=== PATIENT | male | born 1965 | race Caucasian/White ===

== ENCOUNTER 2019-03-05 11:53 | Inpatient (IN) | payer OTHER ==
[~2019-03-05 11:53] MED LIST: Dexamethasone 20 MG/5 ML VIAL ONE; Lidocaine 1% PF 5 ML VIAL ONE; Ondansetron PF 4 MG/2 ML Vial ONE; PHENYLEPHRINE-NS 100 MCG/ML 10 ML SYRINGE ONE; PROPOFOL 200 MG/20 ML VIAL ONE; Succinylcholine Chloride 20 MG/ML 10 ml SYRINGE FS ONE
[2019-03-05 12:32] LABS: #Basophils 0.1 thou/uL (0.0-0.2); #Eosinphils 0.1 thou/uL (0.0-0.7); #Lymphocytes 1.3 thou/uL (1.20-3.40); #Monocytes 0.8 thou/uL (0.11-0.59); #Neutrophils 7.7 thou/uL (1.40-6.50); %Basophils 0.9 % (0.0-1.0); %Eosinophils 0.9 % (0.0-10.0); %Lymphocytes 12.7 % (21.0-51.0); %Neutrophils 77.5 % (42.0-75.0); Hemoglobin 8.5 g/dL (14.0-18.0); Mean Corpuscular HGB CONC 30.4 g/dL (32.0-36.0); Mean Corpuscular Hemoglobin 25.3 pg (27.0-31.0); Mean Corpuscular Volume 83.2 fL (78.0-98.0); Platelet Count 261 thou/uL (130-400); RBC Distribution Width 18.9 % (11.5-14.5); Red Blood Cell (RBC) Count 3.37 mill/uL (4.70-6.10)
[2019-03-05 12:42] LABS: INR-International Normal Ratio 1.1; Prothrombin Time 13.9 SEC (12.0-14.7)
[2019-03-05 12:52] LABS: ALT (SGPT) 12 U/L (8-55); AST (SGOT) 10 U/L (5-34); Albumin 3.5 g/dL (3.5-5.0); Alkaline Phosphatase 57 U/L (40-150); Anion Gap 12 mmol/L (10-20); BUN (Urea Nitrogen) 24 mg/dL (8.4-25.7); Bilirubin, Total 0.2 mg/dL (0.2-1.2); Calc. Creatinine Clearance 0 mL/min (70-130); Calcium 8.9 mg/dL (7.8-10.44); Carbon Dioxide 19 mmol/L (22-29); Chloride 111 mmol/L (98-107); Estimated GFR-MDRD 60; Globulin 2.2 g/dL (2.4-3.5); Glucose 114 mg/dL (70-105); Potassium 3.7 mmol/L (3.5-5.1); Protein, Total 5.7 g/dL (6.0-8.3); Sodium 138 mmol/L (136-145)
--- NOTE | 2019-03-05 15:00 | RAD ---
PORTABLE CHEST: 03/05/2019 PROVIDED CLINICAL HISTORY: Syncope. COMPARISON: 12/05/2003 FINDINGS: The cardiac and mediastinal silhouette is within normal limits. The lungs are hypoinflated with prob able bibasilar subsegmental atelectatic change. No pleural fluid or pneumothorax apparent. IMPRESSION: Hypoinflated examination without definite evidence for an acute cardiopulmonary process. POS: MAYANK
[2019-03-05] MEDS ORDERED: Pantoprazole 40 MG VIAL ONE (15:21)
--- NOTE | 2019-03-05 15:46 | HP ---
PRIMARY CARE PHYSICIAN: [facility] Call admission. REASON FOR ADMISSION: Symptomatic anemia, orthostatic hypotension, GI bleed. HISTORY OF PRESENT ILLNESS: A 54-year-old male who has no significant medical problem, who was brought to emergency room for syncopal episode. The patient reports that for last couple of days, he was feeling dizzy and weak. He was intermittently experiencing dizziness, especially whenever he was trying to stand up. He was also feeling warm and subsequently dizziness. At home, he had episode of syncopal episode. The patient reports that when he had bowel movement, he noticed bright red blood in stool. The patient also gives history that he has a hemorrhoid, but he never noticed any blood with wiping. The patient denies any epigastric pain. He denies any nausea, hematemesis, or melena. He denies any abdominal pain. The patient was taking NSAID, naproxen and ibuprofen for his tooth problem. He never had this type of problem in past. In the emergency room, when he arrived, at that time, his blood pressure was 104/77. He was given 2 L of IV fluid. When he tried to stand up by himself, at that time the patient pulse increased to 140s and his blood pressure dropped. The patient was feeling fatigued and tired. He denies any chest pain palpitation. He denies any weight loss. He denies any headache or focal motor symptoms. REVIEW OF SYSTEMS: CONSTITUTIONAL: Negative for weight loss or gain, ability to conduct usual activities. SKIN: Negative for rash, itching. EYES: Negative for double vision, pain. ENT/MOUTH: Negative for nose bleeding, neck stiffness, pain, tenderness. CARDIOVASCULAR: Negative for palpitations, dyspnea on exertion, orthopnea. RESPIRATORY: Negative for shortness of breath, wheezing, cough, hemoptysis, fever or night sweats. GASTROINTESTINAL: Negative for poor appetite, abdominal pain, heartburn, nausea, vomiting, constipation, or diarrhea. GENITOURINARY: Negative for urgency, frequency, dysuria, nocturia. MUSCULOSKELETAL: Negative for pain, swelling. NEUROLOGIC/PSYCHIATRIC: Negative for anxiety, depression. ALLERGY/IMMUNOLOGIC: Negative for skin rash, bleeding tendency. Please see my HPI for pertinent positives and negatives. All other review of systems reviewed and negative except as mentioned in HPI. PAST MEDICAL HISTORY: Reviewed and negative. PAST SURGICAL HISTORY: Dental surgery and skin cancer removed from nose as well as on the face. PAST PSYCHIATRIC HISTORY: Anxiety and depression, on Zoloft. SOCIAL HISTORY: The patient currently dips nicotine-free product. He drinks alcohol once a month. He denies any other illicit drug abuse. FAMILY HISTORY: No strong family history of premature coronary artery disease, stroke, or cancer. ALLERGIES: NO KNOWN DRUG ALLERGIES. CURRENT HOME MEDICATIONS: Zoloft 50 mg daily. EMERGENCY ROOM COURSE: So far, the patient has received IV fluid 2 L. PHYSICAL EXAMINATION: VITAL SIGNS: Currently, blood pressure 104/77, pulse 84, respiratory rate 20, temperature 98.3, saturation 100% on room air, weight 99 kg. GENERAL: The patient is currently alert, awake, no obvious acute distress. HEENT: Head; normocephalic and atraumatic. Eyes; pupils round, reactive to light. Extraocular muscle intact. ENT; oropharynx within normal limits. Pale mucous membrane. No oral lesion. No pharyngeal erythema. No exudate. NECK: Supple. No JVD. No thyromegaly. No carotid bruit. No jugular venous distention. LUNGS: Clear to auscultation without any rhonchi or rales. CARDIAC: S1 and S2 regular. No murmur. No gallop. No rub. ABDOMEN: The patient does not have any epigastric tenderness. No peritoneal sign. No guarding. No rigidity. No rebound. BACK: Unremarkable. No CVA tenderness. EXTREMITIES: Upper extremities, passive movement of all joints is normal. Lower extremity, no edema. Good distal pulsation. SKIN: No skin rash. PSYCHIATRIC: Normal affect. NEUROLOGIC: Nonfocal examination. SIGNIFICANT LABORATORY DATA: Chest x-ray unremarkable. CBC; WBC 10.0, hemoglobin 8.5, and platelets 261. INR 1.1. Sodium 138, potassium 3.7, chloride 111, carbon dioxide 19, BUN 24, creatinine 1.25, glucose 114, and calcium 8.9. LFT; AST 10, ALT 12, alkaline phosphatase 57, albumin 3.5. Troponin I less than 0.010. ASSESSMENT AND PLAN: 1. Acute gastrointestinal bleed. The patient had hypotension, syncopal episode, as well as orthostatic hypotension and symptomatically gets tachycardic with standing position. This patient has hematochezia. He also has recent NSAID use. At this point, his presentation is atypical given his hemodynamics compromise. We are suspecting that he might have upper gastrointestinal bleed. We will start with Protonix 40 mg IV b.i.d. Gastroenterology is consulted, and I spoke with him. The patient will be planned for upper endoscopic evaluation later on today to rule out upper GI bleed. If possible, then we will also try to do colonoscopy after colonoscopic preparation, we will keep him on n.p.o. for now. The patient is Jehovah Witness and that is why we will not able to give him any blood product and that is why we will avoid keep checking H and H more frequently. We will consider iron infusion. We will closely monitor in IMCU for any hemodynamic compromise. If blood pressure drops or if the bleeding persists, then we may need to consider vasopressor if needed, but at this point, he will not need vasopressor support. 2. Anemia due to acute blood loss. The patient has hemorrhoid history. He may have chronic blood loss, but the patient does not provide that type of history. GI consulted for evaluation to rule out upper or lower GI bleeding as a cause of anemia. Currently, the patient has symptomatic anemia, but the patient is Jehovah Witness and that is why we will avoid any blood products. We will give him IV iron infusion while in hospital. We will closely monitor in IMCU. As the patient is Jehovah Witness, we wanted to avoid iatrogenic anemia and that is why we will not check further H and H. 3. Orthostatic hypotension and symptomatic anemia. The patient will be given IV fluid with NS at 125 mL/h. 4. Deep venous thrombosis prophylaxis, SCD boots. 5. Gastrointestinal prophylaxis, Protonix 40 mg IV b.i.d. CODE STATUS: The patient is full code. The patient does not have any surrogate decision maker. DISPOSITION PLAN: Based on clinical course, we are expecting the patient's stay in hospital more than 2 midnights. Plan of care discussed with the patient in detail. Job ID: [id number]
[2019-03-05 16:32] LABS: Bilirubin Negative (Negative); Blood, Urine Negative (Negative); Clarity Clear (Clear); Glucose, Urine (Dipstick) Normal (Negative); Leukocyte Negative Leu/uL (Negative); Nitrite Negative (Negative); Protein, Urine (Dipstick) 20 mg/dL (Neg-Trace); Urobilinogen Normal mg/dL (Less than 2)
[2019-03-05] MEDS ORDERED: GoLYTELY 4,000 ml Bottle PO SCH (17:09)
[2019-03-05] MEDS ORDERED: Bisacodyl 10 MG SUPP PR PRN (17:09)
[2019-03-05] MEDS ORDERED: Acetaminophen 325 MG TAB PO PRN (17:09)
[2019-03-05] MEDS ORDERED: Loperamide HCl 2 MG CAP PO PRN (17:09)
[2019-03-05] MEDS ORDERED: Cepastat Lozenges 1 LOZ PO PRN (17:09)
[2019-03-05] MEDS ORDERED: Diabetic Tussin 200 MG/10 ML UDCUP PO PRN (17:09)
[2019-03-05] MEDS ORDERED: Loratadine 10 MG TAB PO PRN (17:09)
[2019-03-05] MEDS ORDERED: Calcium Carbonate 500 MG ChewTAB PO PRN (17:09)
[2019-03-05] MEDS ORDERED: Artificial Tears 18 DROP/0.9 ML EA EYE PRN (17:09)
[2019-03-05] MEDS ORDERED: HYDROcodone/Acetaminophen 5/325 mg Tablet PO PRN (17:09)
[2019-03-05] MEDS ORDERED: Sodium Chloride 0.65% Nasal 44 ML BOT EA NARE PRN (17:09)
[2019-03-05] MEDS ORDERED: Ondansetron PF 4 MG/2 ML Vial IVP PRN (17:09)
[2019-03-05] MEDS ORDERED: Senokot S 8.6-50 MG TAB PO PRN (17:09)
[2019-03-05] MEDS ORDERED: Ondansetron ODT 4 MG TAB PO PRN (17:09)
[2019-03-05] MEDS: Sodium Chloride 0.9% 1,000 ML IV SCH ×2 (19:18→21:37)
[2019-03-05] MEDS: Pantoprazole 40 MG VIAL IVP SCH (20:53)
--- NOTE | 2019-03-05 22:33 | CON ---
DATE OF CONSULTATION: 03/05/2019 REASON FOR CONSULTATION: Hematochezia. CONSULTING PHYSICIAN: Juliette Gómez MD HISTORY OF PRESENT ILLNESS: The patient is a 54-year-old male with past medical history of osteoarthritis, GERD, depression, skin cancer of the nares status post excision and sensorineural hearing loss, presenting with complaints of hematochezia. He states that he was in his usual state of health until yesterday evening when he began to experience generalized malaise, dizziness, and diaphoresis, but did not have any additional symptoms at that time. He ended up taking a cold shower and going to sleep early with resolution of his symptoms into the next day. However, earlier this morning, he again experienced increased dizziness and diaphoresis, and "passed out at home." This was shortly followed by the appearance of gross blood hematochezia characterized as bright red blood per rectum that was present both on the toilet and then toilet paper with a larger volume observed by the patient and family. With the appearance of this increased blood, it prompted him to seek healthcare assistance at the [facility] ER. On admission to the [facility] ER, he was noted to be hypotensive and tachycardic in addition to observed bleeding here in the ER. He was given IV fluids as part of resuscitative measures, but was not given blood products due to the patient's Pentecostal yazdanism status. Upon speaking with the patient, he states that this has happened before, approximately 2 times within the last 2 years, characterized as bright red blood per rectum that was both in the toilet and on the toilet paper, but characterized more as a small volume of bright red blood during those times. Otherwise, he denies any nausea, vomiting, fevers, chills, hematemesis, melena, abdominal pain, weight loss, dysphagia, or odynophagia. Of note, he states that he has been taking naproxen 1000 mg daily for the last 1 to 2 years and was also increasing his dose of pain medications by taking ibuprofen 200-400 mg daily over the last week for increased tooth pain. He is also concurrently on sertraline for antidepression. Of note, the patient has never had a colonoscopy or upper endoscopy in the past. He does have a mother who was diagnosed with liver cancer and from this illness, but no stated history of cirrhosis or liver disease. PAST MEDICAL HISTORY: As per HPI. PAST SURGICAL HISTORY: Skin cancer excision of the nares. FAMILY HISTORY: Liver cancer (mother), prostate cancer (father). SOCIAL HISTORY: Denies any tobacco or illicit drug use. Will drink approximately four 12-ounce beers per month. OUTPATIENT MEDICATIONS: Reviewed. ALLERGIES: NO KNOWN DRUG ALLERGIES. PHYSICAL EXAMINATION: VITAL SIGNS: Temperature 98.3, pulse 84, blood pressure 104/77, respiratory rate 20, saturating 100% on room air. GENERAL: The patient was lying in bed, in no acute distress. Alert and oriented x4. HEENT: Normocephalic, atraumatic. NECK: Supple. No JVD or scleral icterus noted. CARDIOVASCULAR: Regular rate and rhythm with no discernible murmurs, gallops, or rubs. RESPIRATORY: Clear to auscultation bilaterally with no discernible wheezes or rales. ABDOMEN: Normoactive bowel sounds. Soft, nontender, nondistended. EXTREMITIES: No cyanosis, clubbing, or edema. LABORATORY DATA: CBC with a white blood cell count of 10, hemoglobin 8.5, hematocrit 28, platelets 261. INR 1.1. Chemistry with a sodium of 138, potassium 3.7, chloride 111, CO2 of 19, BUN 24, creatinine 1.25, glucose 114. AST 10, ALT 12, alkaline phosphatase 57, total bilirubin 0.2, albumin 3.5. IMAGING DATA: Chest x-ray was obtained on March 05, 2019, which showed hypoinflation of the bilateral lungs with possible bibasilar subsegmental atelectatic changes, but no other evidence for acute cardiopulmonary process. ASSESSMENT AND PLAN: The patient is a 54-year-old male with past medical history of osteoarthritis, gastroesophageal reflux disease, depression, skin cancers of the nares status post excision and hearing loss, presenting with hematochezia. Hematochezia. The patient is presenting with acute onset of large volume bright red blood per rectum and associated with hypotension and tachycardia when evaluated in the [facility] ER. He also endorses a recent history of increased NSAID use and when coupled with the current use of SSRIs, he is at increased risk for GI bleeding whether be upper or lower. Given the hypotensive and tachycardia noted on admission, an upper gastrointestinal bleeding source cannot be ruled out at this time. Yet with the hematochezia, it tends to lean more toward a lower GI tract picture. Differential at this time could include peptic ulcer disease (due to increased NSAID use) esophagitis, gastritis, Dieulafoy lesion, arteriovenous malformation, diverticular bleeding and/or gastrointestinal neoplasm. Given the patient's sabianism status as a Pentecostal, he does not accept blood products and therefore, endoscopic evaluation should be expedited to prevent further loss of blood. RECOMMENDATIONS: 1. Would keep the patient n.p.o. for now except for medications and administration of GoLYTELY. 2. Would rapid sequence prep this patient for both upper and lower endoscopies by having the patient drink 4 L of GoLYTELY over the next 3-4 hours and then proceeding with the endoscopic procedures upon him finishing the prep. 3. Continue to trend H and H. 4. We would continue to monitor clinically for signs of active GI bleeding. 5. We will place the patient on PPI given the likelihood of an upper GI bleed. 6. Further recommendations to follow endoscopic evaluation. We will continue to follow. Please call with any questions. Job ID: [id number]
--- NOTE | 2019-03-06 02:25 | OP ---
DATE OF PROCEDURE: 03/05/2019 PROCEDURE PERFORMED: Esophagogastroduodenoscopy (diagnostic): Colonoscopy with control of hemorrhage. INDICATION FOR PROCEDURE: Hematochezia. DESCRIPTION OF PROCEDURE: After the risks and benefits of the procedures were explained to the patient including risks of bleeding, infection, perforation, reactions to anesthesia, aspiration and/or pain, informed consent was obtained. The patient was then taken to the endoscopy suite, where general anesthesia was administered followed by endotracheal tube intubation. Once the patient was intubated and sedated, he was placed in the left lateral decubitus position in preparation for the procedures. Using the standard gastroscope, it was introduced into the mouth with intubation of the esophagus, stomach, and the proximal small intestines with the findings listed below. Upon completion of this portion of procedure, all equipment was removed from the patient and the bed was rotated 180 degrees in anticipation of the colonoscopy. A digital rectal examination was then performed followed by introduction of the standard colonoscope which was then advanced to the cecum without difficulty. The quality of the prep was excellent with adequate visualization achieved. Upon withdrawal of the colonoscope, careful examination of the mucosa was performed with the findings listed below. The patient tolerated this portion of the procedure well with no immediate perioperative complications. Upon conclusion of the procedure, the patient was then transferred to PACU in satisfactory condition. EGD FINDINGS: Esophagus: Normal-appearing mucosa was seen in the proximal, mid, and distal esophagus. There was no evidence of erosions, ulcerations, mass, lesions, or active/recent bleeding. Mild amount of salmon-colored mucosa was seen at the gastroesophageal junction, but did not seem to extend more than 1 cm in length. The diaphragmatic pinch was seen at 38 cm while the GE junction was well seen at 35 cm denoting a 3-cm hiatal hernia. Stomach: A 3-to 4-mm linear erosion was seen in the stomach extending longitudinally along the diaphragmatic pinch portion of the hiatal hernia consistent with a Alpesh erosion. He did not exhibit any evidence of active/recent bleeding. Otherwise, there was normal mucosa seen in the gastric cardia, fundus, body, greater curvature, antrum, and incisura. There was no evidence of ulcerations, mass, lesions, or active/recent bleeding. Duodenum: Normal-appearing mucosa was seen in both the duodenal bulb and second portion of the duodenum. There was no evidence of erosions, ulcerations, mass, lesions, or active/recent bleeding. IMPRESSION: 1. A 3-to 4-mm nonbleeding Alpesh erosions (unlikely to be the etiology for patient's recent hematochezia). 2. A 3-cm hiatal hernia. COLONOSCOPY FINDINGS: Digital rectal exam: Normal findings were seen on external examination. Colon findings: Normal-appearing mucosa was seen at the appendiceal orifice and ileocecal valve. However, multiple arteriovenous malformations were seen within the cecum with approximately 5 AVMs seen in this region measuring between 1 to 2 mm in size and 8 to 9 mm in size. The largest arteriovenous malformation measuring 7 to 8 mm in size, exhibited an overlying blood clot and that was easily removed with high-risk stigmata of recent bleeding associated with this arteriovenous malformation. These AVMs were subsequently intervened upon with argon plasma coagulation with good hemostasis achieved afterward. Two additional arteriovenous malformations were seen in the proximal ascending colon measuring 4 to 6 mm in size and successfully intervened upon with argon plasma coagulation with good hemostasis achieved. Otherwise, normal-appearing mucosa was seen in the distal ascending colon and transverse colon. A 3-mm arteriovenous malformation was also seen in the descending colon without any high-risk stigmata of bleeding. It was intervened upon with argon plasma coagulation with good hemostasis achieved. Normal-appearing mucosa was then seen in the mid descending colon. Multiple small and large mouth diverticula were seen in the distal descending and sigmoid colons, but with careful inspection did not exhibit any evidence of active/recent bleeding. Normal-appearing mucosa was then seen within the rectum with small internal hemorrhoids seen on rectal retroflexion. IMPRESSION: 1. 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 2. Two 4 to 6 mm arteriovenous malformations in the proximal ascending colon, status post argon plasma coagulation. 3. A 3-mm descending arteriovenous malformation, status post argon plasma coagulation. 4. Severe left-sided diverticulosis. 5. Small internal hemorrhoids. RECOMMENDATIONS: 1. We would continue to trend H and H for signs of active GI bleeding .. 2. Continue to monitor clinically for signs of active GI bleeding. 3. If the patient continues to have a decrease in his H and H, we would consider a tagged red cell scan for further localization of the bleeding. 4. Can decrease the pantoprazole to 40 mg IV daily given lack of upper GI findings. 5. We would start the patient on clear liquid diet and advance as tolerated. 6. We will continue to monitor the patient over the next 48 hours given increased risk of rebleeding during this time. We will continue to follow. Please call with any questions. Job ID: [id number]
[2019-03-06] MEDS: Sodium Chloride 0.9% 1,000 ML IV SCH (02:59)
[2019-03-06 06:15] LABS: #Basophils 0.1 thou/uL (0.0-0.2); #Eosinphils 0.2 thou/uL (0.0-0.7); #Lymphocytes 1.9 thou/uL (1.20-3.40); #Monocytes 1.1 thou/uL (0.11-0.59); #Neutrophils 8.3 thou/uL (1.40-6.50); %Basophils 0.6 % (0.0-1.0); %Eosinophils 1.4 % (0.0-10.0); %Lymphocytes 16.6 % (21.0-51.0); %Monocytes 9.2 % (0.0-10.0); %Neutrophils 72.3 % (42.0-75.0); Mean Corpuscular Hemoglobin 26.7 pg (27.0-31.0); Mean Corpuscular Volume 83.3 fL (78.0-98.0); Mean Platelet Volume 9.1 fL (7.4-10.4); Platelet Count 178 thou/uL (130-400); RBC Distribution Width 19.4 % (11.5-14.5); Red Blood Cell (RBC) Count 2.25 mill/uL (4.70-6.10); White Blood Cell (WBC) Count 11.4 thou/uL (4.8-10.8)
[2019-03-06 06:33] LABS: Anion Gap 7 mmol/L (10-20); BUN (Urea Nitrogen) 15 mg/dL (8.4-25.7); Calc. Creatinine Clearance 130 mL/min (70-130); Carbon Dioxide 23 mmol/L (22-29); Chloride 114 mmol/L (98-107); Estimated GFR-MDRD Greater than 90; Glucose 104 mg/dL (70-105); Potassium 3.7 mmol/L (3.5-5.1); Sodium 140 mmol/L (136-145)
[2019-03-06] MEDS: Pantoprazole 40 MG VIAL IVP SCH ×2 (09:42→21:55)
[2019-03-06] MEDS ORDERED: EPOETIN ALFA-EPBX (ESRD) 10,000 UNIT/ML VIAL SC SCH (10:15)
[2019-03-06] MEDS ORDERED: Iron Sucrose Complex 200 MG in Sodium Chloride 0.9% 250 ML 250 ML IVPB SCH (10:15)
[2019-03-06] MEDS ORDERED: Iron, Sodium Ferric Gluconate 250 MG in Sodium Chloride 0.9% 100 ML IVPB SCH (10:30)
[2019-03-06] MEDS ORDERED: ISOVUE-370 76%-LOCM 1 ML ONE (14:39)
--- NOTE | 2019-03-06 15:04 | PDOC.HOSPP ---
- Subjective Subjective: Patient seen and examined. No new complaints. No overnight events - Objective Vital Signs & Weight: Vital Signs (12 hours) Temp Pulse Ox 03/06/19 12:00 97.9 F 03/06/19 08:00 100 03/06/19 07:41 98.2 F 03/06/19 04:00 99.2 F Weight Weight 202 lb Most Recent Monitor Data Heart Rate from ECG 71 NIBP 123/73 NIBP BP-Mean 89 Respiration from ECG 17 SpO2 100 I&O: 03/05/19 03/06/19 03/07/19 06:59 06:59 06:59 Intake Total 1999 Output Total 192 Balance 75 Result Diagrams: 03/06/19 05:58 03/06/19 05:58 EKG Reviewed by me: Yes ROS - Review of Systems All systems: All other ROS were reviewed and found negative. Constitutional: denies: fever, chills, sweats, weakness, malaise, other Eyes: denies: pain, vision change, conjunctivae inflammation, eyelid inflammation, redness, other ENT: denies: ear pain, ear discharge, nose pain, nose discharge, nose congestion , mouth pain, mouth swelling, throat pain, throat swelling, other Respiratory: denies: cough, dry, shortness of breath, hemoptysis, SOB with excertion, pleuritic pain, sputum, wheezing, other Cardiovascular: denies: chest pain, palpitations, orthopnea, paroxysmal noc. dyspnea, edema, light headedness, other Gastrointestinal: denies: nausea, vomitting, abdominal pain, diarrhea, constipation, melena, hematochezia, other Genitourinary: denies: dysuria, frequency, incontinence, hematuria, retention, other Musculoskeletal: denies: neck pain, shoulder pain, arm pain, back pain, hand pain, leg pain, foot pain, other Skin: denies: rash, lesions, garry, bruising, other - Medication Medications: Active Medications Generic Name Dose Route Start Last Admin Trade Name Freq PRN Reason Stop Dose Admin Ondansetron HCl 4 mg 03/05/19 17:09 03/05/19 20:53 Zofran IVP 4 mg Q6H PRN Administration Nausea/Vomiting Pantoprazole Sodium 40 mg 03/05/19 21:00 03/06/19 09:42 Protonix IVP 40 mg Q12HR KRISTIAN Administration - Exam NAD, awake alert Eye: PERRL, anicteric sclera ENT: normocephalic atraumatic, no oropharyngeal lesions Neck: supple, symmetric, no JVD Heart: RRR, no murmur, no gallops, no rubs Respiratory: CTAB, no wheezes, no rales Gastrointestinal: soft, non-tender, non-distended Extremities: no cyanosis, no clubbing, no edema Skin: normal turgor, no lesions Neurological: CN's grossly intact, normal sensation to touch, no focal deficits Musculoskeletal: normal tone, normal strength Psychiatric: normal affect, normal behavior Hosp A/P (1) AV malformation of GI tract Code(s): K55.20 - ANGIODYSPLASIA OF COLON WITHOUT HEMORRHAGE Status: Acute (2) Anemia due to acute blood loss Code(s): D62 - ACUTE POSTHEMORRHAGIC ANEMIA Status: Acute (3) GI bleed Code(s): K92.2 - GASTROINTESTINAL HEMORRHAGE, UNSPECIFIED Status: Acute (4) Orthostatic hypotension Code(s): I95.1 - ORTHOSTATIC HYPOTENSION Status: Acute (5) Syncope Code(s): R55 - SYNCOPE AND COLLAPSE Status: Acute (6) Anxiety and depression Code(s): F41.9 - ANXIETY DISORDER, UNSPECIFIED; F32.9 - MAJOR DEPRESSIVE DISORDER, SINGLE EPISODE, UNSPECIFIED Status: Chronic (7) Obesity (BMI 30.0-34.9) Code(s): E66.9 - OBESITY, UNSPECIFIED Status: Chronic (8) Patient is Muslim Code(s): Z78.9 - OTHER SPECIFIED HEALTH STATUS Status: Chronic - Plan old records reviewed/req will give iron bag today add procrit, folic acid, vitamin b12, ferrous sulfate medication reviewed as above symptomatic treatment transfer to medical
[2019-03-06 18:43] LABS: Hemoglobin 6.2 g/dL (14.0-18.0)
[2019-03-06] MEDS ORDERED: Morphine 2 MG/ML SYRINGE IVP PRN (19:39)
--- NOTE | 2019-03-06 20:00 | CT ---
CT ABDOMEN AND PELVIS WITH CONTRAST: Technique: Axial tomograms were obtained through the abdomen and pelvis with IV enhancement. Indications: Recent EDG and colonoscopy. Abdominal pain. FINDINGS: Lung bases clear. Liver, spleen, pancreas unremarkable. There is free intraperitoneal air seen in the upper anterior abdomen with dependent ========= along t he anterior abdominal wall. Tiny gas pockets are seen adjacent to the duodenal bulb and tiny gas pock ets in the portahepatis. The kidneys are unremarkable. Small bowel loops normal. Evaluation of the colon shows pneumotosis involving the wall of the cecum. Tiny gas pockets are seen in the cecal wall. There are one or two tiny pockets seen along the cecal wall which may be extralumi nal. No significant free fluid. Diverticulosis of the left colon and sigmoid. No evidence of free air or free fluid surrounding the d iverticula or left colon. There is stranding around the sigmoid colon which suggests inflammatory remigio nge. No abscess or fluid collection. IMPRESSION: 1. Free intraperitoneal air. Air in the upper anterior abdomen and tiny gas pockets near the duodenum and portahepatis. 2. Pneumotosis of the cecal wall and possible tiny extraluminal gas pockets surround the cecum. 3. No free fluid. These findings were discussed with Dr. Barnett at the time of dictation. Code CR POS: SHIVANI
[2019-03-06] MEDS: D5 1/2 NS w/20 mEq KCL 1,000 ML IV SCH (21:55)
[2019-03-06] MEDS: Piperacillin/Tazobactam 4.5 GM in Sodium Chloride 0.9% 100 ML IVPB SCH (21:56)
[2019-03-06] MEDS: Ferrous Sulfate 325 MG TAB PO SCH (21:56)
[2019-03-06] MEDS: Morphine 2 MG/ML SYRINGE IVP PRN ×2 (22:09→23:56)
--- NOTE | 2019-03-06 22:33 | PRG ---
DATE OF SERVICE: 03/06/2019 REASON FOR CONSULTATION: Hematochezia, arteriovenous malformation. SUBJECTIVE: The patient was doing well this morning with no acute events or problems overnight. He did have some mild right lower quadrant abdominal soreness after the procedure last night, but otherwise denied any other symptoms. He was able to tolerate a clear liquid diet well and was transferred to a full liquid diet later in the day. He was also transferred from the [facility] to a regular lepe bed and shortly after his transfer, he experienced an episode of hypotension, diaphoresis, and increased right lower quadrant abdominal pain that resolved within 5 to 10 minutes after its onset. Repeat H and H at that time showed no decrease in his blood counts, but a CT of the abdomen and pelvis showed evidence of free intraperitoneal air consistent with a perforation. General Surgery is evaluating the patient at this time for possible surgical correction. However, the patient states that he is doing much better after receiving some morphine for pain medication and states that his right lower quadrant abdominal pain has improved significantly. Currently, he denies any nausea, vomiting, fevers, chills, hematemesis, melena, or hematochezia. OBJECTIVE: VITAL SIGNS: Temperature 99.2, pulse 96, blood pressure 99/55, respiratory rate 16, and saturating 97% on room air. GENERAL: The patient is lying in bed, in no acute distress. Alert and oriented x4. CARDIOVASCULAR: Regular rate and rhythm with no discernible murmurs, gallops, or rubs. RESPIRATORY: Clear to auscultation bilaterally. ABDOMEN: Normoactive bowel sounds. Soft, nondistended. Tenderness to palpation in the right lower quadrant with some guarding. EXTREMITIES: No cyanosis, clubbing, or edema. LABORATORY DATA: Recent hemoglobin of 6.2 with hematocrit of 20.1, that is currently stable from this morning with a CBC showing a white blood cell count of 11.4, hemoglobin 6, hematocrit 18.7, and a platelet count of 178. Chemistry showing a sodium of 140, potassium 3.7, chloride 114, CO2 of 23, BUN 15, creatinine 0.83, and glucose 104. IMAGING DATA: Both EGD and colonoscopy were performed on 03/05/2019. During the course of these procedures, the EGD showed the presence of a 3 cm hiatal hernia with possible Alpesh erosions, but no evidence of active/recent bleeding. However, on the colonoscopy, he showed multiple arteriovenous malformations ranging in size from 1 to 9 mm in size with the largest of these arteriovenous malformations exhibiting an overlying clot and evidence of recent bleeding. He subsequently underwent argon plasma coagulation of these lesions with good hemostasis achieved at that time at the end of the procedure. However, with the increased abdominal pain and hypotension noted later on this afternoon, a CT of the abdomen and pelvis was obtained, which showed free intraperitoneal air in the upper abdomen, seen along the anterior abdominal wall. Gas pockets were seen adjacent to the duodenal bulb as well as the roshan hepatis. Pneumatosis was also seen involving the colon in the region of the cecum with tiny gas pockets seen in the cecal wall as well as possible extraluminal pockets of air in that region as well. However, there was no significant free fluid noted or abscess formation. ASSESSMENT AND PLAN: The patient is a 54-year-old male with past medical history of osteoarthritis; gastroesophageal reflux disease; depression; skin cancer of the nares, status post excision; and hearing loss, presenting with hematochezia secondary to cecal arteriovenous malformation, now complicated by colonic perforation. Hematochezia: The patient initially presented with acute onset of large volume of hematochezia that was associated with tachycardia and hypotension and concerning for either an upper or lower gastrointestinal bleed. He subsequently underwent esophagogastroduodenoscopy and colonoscopy on 03/05/2019, which showed no real significant findings in the upper GI tract, but did show multiple arteriovenous malformations in the lower GI tract, the largest of which showing high-risk stigmata of recent bleeding. These were successfully intervened upon with argon plasma coagulation with good hemostasis achieved at the end of the maneuver, currently with stable H and H since this morning with no evidence of continued bleeding by laboratory values as well as no further episodes of melena or hematochezia. RECOMMENDATIONS: 1. We would continue to trend H and H, but would not transfuse given the patient's baptist status. 2. Continue to monitor clinically for signs of active GI bleeding. 3. We would decrease the PPI to 40 mg daily given the lack of upper GI findings. Colonic perforation: The patient underwent both EGD and colonoscopy on 03/05/2019, with intervention only within the cecum and proximal ascending colon for multiple arteriovenous malformations. At the time of the procedure, there was some note of some mucosal gas with administration of the argon plasma coagulation, but no overt perforation was noted at that time during the procedure. However, the patient did have an episode of hypotension in addition to increased right lower quadrant abdominal pain earlier today with a stat CT of the abdomen and pelvis showing free intraperitoneal air consistent with a perforation. At this point, the origin of the perforation is unknown with the majority of these gas pockets collecting at the upper GI tract, but given that the intervention was only performed within the cecum itself, I would think this is more likely a location for this to occur. RECOMMENDATIONS: 1. We would start the patient on broad-spectrum antibiotics including Zosyn to prevent intraabdominal infection. 2. We would make the patient n.p.o. 3. We will consult General Surgery Service for further evaluation and decide whether or not this is something that could be managed more conservatively with antibiotics and watchful waiting stance or more urgent surgical resection. We will continue to follow. Please call with any questions. Job ID: [id number]
[2019-03-06] MEDS ORDERED: Piperacillin/Tazobactam 3.375 GM in Sodium Chloride 0.9% 100 ML IVPB SCH (23:59)
--- NOTE | 2019-03-07 02:06 | CON ---
DATE OF CONSULTATION: 03/06/2019 CONSULTING PHYSICIAN: Aguila Pacheco MD REASON FOR CONSULTATION: Colon perforation. HISTORY OF PRESENT ILLNESS: The patient is a 54-year-old white male. He presented to the hospital yesterday following an episode of hematochezia and syncope. When he presented to the emergency room, he was tachycardic and hypotensive. Initial hemoglobin was checked, it was 8.5. He was resuscitated with IV fluid. He was given a rapid bowel prep and underwent colonoscopy. During colonoscopy, he was found to have an unremarkable EGD. Colonoscopy revealed arteriovenous malformations within the cecum with no other significant abnormality. There was one of them that was identified that had been the likely focus of the bleeding. These were treated with argon beam coagulation. The patient seemed to be stable following his procedure. He was hemodynamically stable and felt well. His hemoglobin this morning was 6 with a white blood cell count of 11.4. He was transferred from the intermediate care unit, started on a liquid diet. This evening when he was getting out of bed to go to the bathroom, he had a presyncopal episode and was noted to be hypotensive once again with a reported systolic blood pressure in the 70s. An urgent CT scan was obtained revealing a significant volume of free air within the abdomen. This was mostly within the upper abdomen on the right side of the abdomen. There was only one tiny air bubble down near the cecum. This was felt to be a small focus of pneumatosis. I am consulted at this time for further recommendations regarding his apparent bowel perforation. Of note, the patient is a Mandaen and he accordingly is refusing all blood transfusions. PAST MEDICAL HISTORY: Significant for skin cancer excisions. PAST SURGICAL HISTORY: None other than recent colonoscopy and dental extraction. ALLERGIES: NO KNOWN DRUG ALLERGIES. MEDICATIONS: None. PRIMARY CARE PHYSICIAN: None. PERSONAL AND SOCIAL HISTORY: He smoked until about a year ago. He drinks alcohol rarely, estimated once per month. He is currently , but this is apparently a contentious marriage. He has children from a prior marriage. His brother is present at bedside. He works in auto body repair. REVIEW OF SYSTEMS: Otherwise, unremarkable. FAMILY HISTORY: Noncontributory. PHYSICAL EXAMINATION: VITAL SIGNS: His most recent vital signs at 8 o'clock this evening was blood pressure of 99/55, heart rate of 96, temperature of 99.2. GENERAL: He is a well-developed, well-nourished, pleasant white male resting in bed, in no acute distress. He is alert and oriented x3. HEAD, EYES, EARS, NOSE, AND THROAT: Unremarkable. NECK: Supple without mass or tenderness. LUNGS: Clear to auscultation anteriorly. CARDIAC: Regular rate and rhythm without murmur. ABDOMEN: Soft. He has normoactive bowel sounds. He has focal right lower quadrant tenderness to palpation. There is no tenderness in any other quadrant. EXTREMITIES: Unremarkable. LABORATORY DATA: His hemoglobin as mentioned this morning was 6.0. At 6:30 this evening, it was 6.2. His basic metabolic panel from this morning were unremarkable with minor electrolyte shifts. His coagulation panel from yesterday was normal. ASSESSMENT: The patient has three significant issues: 1. He is Mandaen and refusing transfusion. 2. He is severely anemic with a current hemoglobin of 6.2. 3. He has some degree of perforation that I suspect is a cecal perforation. The amount of gas that is present within his abdomen is visualized on the CAT scan such that typically I would recommend exploratory procedure. In light of the focal tenderness, it is possible that he has already sealed the perforation in his cecum. He has no ongoing leakage and that this could be treated as a microperforation with bowel rest and antibiotics. I told him that under most circumstances, I would recommend a laparoscopy to evaluate this. The only danger without being that if his hemoglobin drops further from hydration and/or any blood loss, it is possible that he becomes increasingly symptomatic and is at risk for complications related to his severe anemia up to and including . He understands all these options. We spoke at length regarding this. He initially seems to prefer observation with antibiotics, IV fluids, and pain control. I told him that I would reassess him early in the morning approximately 12 hours and will repeat laboratory studies at that time. If he does not seem to be improving or he seems to be deteriorating, then he would certainly require laparoscopy. I also explained that the operative interventions could be as minor as a washout with drain placement or as much as a right hemicolectomy, assuming that the perforation is within the cecum. He and his brother understand all these options and agreed to proceed in this fashion. Job ID: [id number]
[2019-03-07] MEDS: Morphine 2 MG/ML SYRINGE IVP PRN ×4 (02:21→07:24)
[2019-03-07] MEDS: Piperacillin/Tazobactam 4.5 GM in Sodium Chloride 0.9% 100 ML IVPB SCH ×4 (04:12→21:53)
[2019-03-07] MEDS: D5 1/2 NS w/20 mEq KCL 1,000 ML IV SCH ×3 (06:16→21:59)
[2019-03-07 06:21] LABS: ALT (SGPT) 11 U/L (8-55); AST (SGOT) 16 U/L (5-34); Albumin 3.3 g/dL (3.5-5.0); Alkaline Phosphatase 54 U/L (40-150); Anion Gap 11 mmol/L (10-20); BUN (Urea Nitrogen) 7 mg/dL (8.4-25.7); Bilirubin, Total 0.3 mg/dL (0.2-1.2); Calc. Creatinine Clearance 130 mL/min (70-130); Calcium 8.6 mg/dL (7.8-10.44); Carbon Dioxide 24 mmol/L (22-29); Chloride 108 mmol/L (98-107); Estimated GFR-MDRD Greater than 90; Globulin 2.1 g/dL (2.4-3.5); Glucose 121 mg/dL (70-105); Potassium 3.9 mmol/L (3.5-5.1); Protein, Total 5.4 g/dL (6.0-8.3); Sodium 139 mmol/L (136-145)
[2019-03-07 06:26] LABS: Hemoglobin 6.5 g/dL (14.0-18.0); Mean Corpuscular HGB CONC 31.1 g/dL (32.0-36.0); Mean Corpuscular Hemoglobin 26.3 pg (27.0-31.0); Mean Corpuscular Volume 84.5 fL (78.0-98.0); Mean Platelet Volume 9.5 fL (7.4-10.4); Platelet Count 242 thou/uL (130-400); Red Blood Cell (RBC) Count 2.47 mill/uL (4.70-6.10); White Blood Cell (WBC) Count 23.7 thou/uL (4.8-10.8)
[2019-03-07 06:52] LABS: Anisocytosis SLIGHT = 6-15 cells (100X) (0-5/hpf); Band 15 % (5-11); Elliptocytes SLIGHT = 2-5 cells (100X) (0-1/hpf); Lymphocytes 3 % (21-51); MDiff Complete? YES; Monocytes 1 % (0-10); Neutrophil 81 % (42-75)
[2019-03-07] MEDS: Folic Acid 1 MG TAB PO SCH (07:31)
[2019-03-07] MEDS: Ferrous Sulfate 325 MG TAB PO SCH (07:31)
[2019-03-07] MEDS ORDERED: Cyanocobalamin (Vitamin B-12) 1,000 MCG TAB PO SCH (09:00)
[2019-03-07] MEDS: Pantoprazole 40 MG VIAL IVP SCH ×2 (09:06→19:52)
[2019-03-07] MEDS ORDERED: Metoclopramide HCl 10 MG/2 ML VIAL ONE (09:57)
[2019-03-07] MEDS ORDERED: PHENYLEPHRINE-NS 100 MCG/ML 10 ML SYRINGE ONE (09:57)
[2019-03-07] MEDS ORDERED: Rocuronium Bromide 10 MG/ML (10ML VIAL) ONE (09:57)
[2019-03-07] MEDS ORDERED: Ketorolac Tromethamine 30 MG/ML VIAL ONE (09:57)
[2019-03-07] MEDS ORDERED: Succinylcholine Chloride 20 MG/ML 10 ml SYRINGE FS ONE (09:57)
[2019-03-07] MEDS ORDERED: Lidocaine 1% PF 5 ML VIAL ONE (09:57)
[2019-03-07] MEDS ORDERED: Glycopyrrolate 0.2 MG/ML 5 ML SYRINGE ONE (09:57)
[2019-03-07] MEDS ORDERED: Ondansetron PF 4 MG/2 ML Vial ONE ×2 (09:57→12:11)
[2019-03-07] MEDS ORDERED: PROPOFOL 200 MG/20 ML VIAL ONE (09:57)
[2019-03-07] MEDS ORDERED: Dexamethasone 20 MG/5 ML VIAL ONE (09:57)
[2019-03-07] MEDS: Iron, Sodium Ferric Gluconate 250 MG in Sodium Chloride 0.9% 100 ML IVPB SCH ×2 (10:30→18:08)
[2019-03-07] MEDS ORDERED: Fentanyl 100 MCG/2 ML VIAL ONE ×2 (10:46→11:27)
[2019-03-07] MEDS ORDERED: Lidocaine 1% w/Epinephrine 1:100K 20 ML VIAL ONE (11:17)
[2019-03-07] MEDS ORDERED: Bupivacaine/Epinephrine 0.25% 30 ML VIAL ONE (11:17)
[2019-03-07] MEDS ORDERED: Fentanyl 250 MCG/5 ML VIAL ONE (11:27)
[2019-03-07] MEDS ORDERED: Albumin 5% 500 ML ONE (11:28)
[2019-03-07] MEDS ORDERED: Famotidine/PF 20 mg/2ml Vial ONE (11:28)
[2019-03-07] MEDS ORDERED: hydrALAZINE 20 MG/ML VIAL SLOW IVP PRN (12:25)
[2019-03-07] MEDS ORDERED: Morphine 4 MG/ML VIAL SLOW IVP PRN ×2 (12:25)
[2019-03-07] MEDS ORDERED: Piperacillin/Tazobactam 4.5 GM in Sodium Chloride 0.9% 100 ML IVPB SCH (12:30)
--- NOTE | 2019-03-07 13:12 | PDOC.HOSPP ---
- Subjective Subjective: Patient seen and examined. No new complaints. No overnight events - Objective Vital Signs & Weight: Vital Signs (12 hours) Temp Pulse Resp BP BP Pulse Ox 03/07/19 10:09 98.2 F 121/69 03/07/19 09:18 96 03/07/19 08:35 99.4 F 03/07/19 08:00 100 F H 92 18 117/67 90 L 03/07/19 04:00 99.4 F 106 H 18 105/69 96 Weight Weight 202 lb Most Recent Monitor Data Heart Rate from ECG 73 NIBP 111/78 NIBP BP-Mean 89 Respiration from ECG 14 SpO2 99 I&O: 03/06/19 03/07/19 03/08/19 06:59 06:59 06:59 Intake Total 1999 Output Total 192 Balance 75 Result Diagrams: 03/07/19 05:05 03/07/19 05:05 Radiology Reviewed by me: Yes (CT abdomen reviewed) ROS - Review of Systems All systems: All other ROS were reviewed and found negative. Eyes: denies: pain, vision change, conjunctivae inflammation, eyelid inflammation, redness, other ENT: denies: ear pain, ear discharge, nose pain, nose discharge, nose congestion , mouth pain, mouth swelling, throat pain, throat swelling, other Respiratory: denies: cough, dry, shortness of breath, hemoptysis, SOB with excertion, pleuritic pain, sputum, wheezing, other Cardiovascular: denies: chest pain, palpitations, orthopnea, paroxysmal noc. dyspnea, edema, light headedness, other Gastrointestinal: reports: abdominal pain. denies: nausea, vomitting, diarrhea , constipation, melena, hematochezia, other Genitourinary: denies: dysuria, frequency, incontinence, hematuria, retention, other Musculoskeletal: denies: neck pain, shoulder pain, arm pain, back pain, hand pain, leg pain, foot pain, other - Medication Medications: Active Medications Generic Name Dose Route Start Last Admin Trade Name Freq PRN Reason Stop Dose Admin Folic Acid 1 mg 03/07/19 09:00 03/07/19 07:31 Folvite PO Not Given DAILY KRISTIAN Piperacillin Sod/Tazobactam 100 mls @ 200 mls/hr 03/06/19 22:00 03/07/19 09: 05 Sod 4.5 gm/ Sodium Chloride IVPB 100 mls 0400,1000,1600,2200 KRISTIAN Administration Pantoprazole Sodium 40 mg 03/05/19 21:00 03/07/19 09:06 Protonix IVP 40 mg Q12HR KRISTIAN Administration - Exam NAD, awake alert Eye: PERRL, anicteric sclera ENT: normocephalic atraumatic, no oropharyngeal lesions Neck: supple, symmetric, no JVD Heart: RRR, no murmur, no gallops Respiratory: CTAB, no wheezes, no rales Gastrointestinal: soft, normal bowel sounds Extremities: no cyanosis, no clubbing, no edema Skin: normal turgor, no lesions Neurological: CN's grossly intact, normal sensation to touch Musculoskeletal: normal tone, normal strength Psychiatric: normal affect, normal behavior Hosp A/P (1) AV malformation of GI tract Code(s): K55.20 - ANGIODYSPLASIA OF COLON WITHOUT HEMORRHAGE Status: Acute (2) Anemia due to acute blood loss Code(s): D62 - ACUTE POSTHEMORRHAGIC ANEMIA Status: Acute (3) GI bleed Code(s): K92.2 - GASTROINTESTINAL HEMORRHAGE, UNSPECIFIED Status: Acute (4) Orthostatic hypotension Code(s): I95.1 - ORTHOSTATIC HYPOTENSION Status: Acute (5) Syncope Code(s): R55 - SYNCOPE AND COLLAPSE Status: Acute (6) Anxiety and depression Code(s): F41.9 - ANXIETY DISORDER, UNSPECIFIED; F32.9 - MAJOR DEPRESSIVE DISORDER, SINGLE EPISODE, UNSPECIFIED Status: Chronic (7) Obesity (BMI 30.0-34.9) Code(s): E66.9 - OBESITY, UNSPECIFIED Status: Chronic (8) Patient is Anglican Code(s): Z78.9 - OTHER SPECIFIED HEALTH STATUS Status: Chronic (9) Leukocytosis (leucocytosis) Code(s): D72.829 - ELEVATED WHITE BLOOD CELL COUNT, UNSPECIFIED Status: Acute (10) Cecum perforation Code(s): K35.32 - ACUTE APPENDICITIS WITH PERF AND LOC PERITONITIS, W/O ABSCS Status: Suspected - Plan old records reviewed/req, continue antibiotics, incentive spirometry, DVT proph w/SCDs pt is NPO today plan for laparoscopy continue IVF continue zosyn will give one bag of venofer repeat labs tomorrow medication reviewed as above symptomatic treatment
[2019-03-07] MEDS ORDERED: Promethazine HCl 25 MG/ML VIAL IM PRN (13:39)
[2019-03-07] MEDS ORDERED: Promethazine HCl 25 MG/ML VIAL SLOW IVP PRN (13:39)
[2019-03-07] MEDS ORDERED: Ondansetron HCl/PF 4 MG/2 ML Vial IVP PRN (13:39)
[2019-03-07] MEDS: Ketorolac Tromethamine 30 MG/ML VIAL IVP SCH ×3 (15:54→23:19)
--- NOTE | 2019-03-07 17:12 | OP ---
DATE OF PROCEDURE: 03/07/2019 PREOPERATIVE DIAGNOSIS: Peritonitis with suspected cecal perforation. POSTOPERATIVE DIAGNOSES: Peritonitis with suspected cecal perforation. A 2 to 3 mm perforation in the anterior cecum and intraabdominal abscess. OPERATIONS PERFORMED: Laparoscopic repair of colon perforation with partial cecectomy, laparoscopic appendectomy, drainage of intraabdominal abscess, and placement of postoperative drain. ASSURANCE MANAGER: Elsa Cruz, medical student. ANESTHESIA: General endotracheal. INDICATIONS: The patient is a 54-year-old white male. He had presented to the hospital with a gastrointestinal bleed. He was found at the time of colonoscopy to have arteriovenous malformations in the cecum. These were treated with argon beam coagulation. Unfortunately, one day after his treatment, he developed abdominal pain with pneumoperitoneum consistent with a cecal perforation. This was recognized last night. He was significantly anemic with a hemoglobin of 6, since he is a Caodaism, he was not transfused. It was decided to treat him conservatively with IV antibiotics and fluid and bowel rest to see if this would heal spontaneously. Unfortunately, when I saw him today, this had clearly progressed to the peritonitis, at which point, I recommended laparoscopic evaluation. DESCRIPTION OF OPERATION: Informed consent was obtained, the patient is taken to the operating room, where general endotracheal anesthesia was obtained with the patient in supine position. Abdomen was prepped with ChloraPrep and draped in sterile fashion. Local anesthetic was infiltrated using 0.25% Marcaine with epinephrine. A 5 mm left mid abdominal incision was created through which a Veress needle was passed into the peritoneal cavity. Pneumoperitoneum was established using carbon dioxide up to pressure of 15 mmHg and a 5 mm trocar port sites in the same incision. Laparoscopic camera was passed this port. Under direct vision, 2 additional ports were placed including a 5 mm left lower quadrant port and a 12 mm left upper quadrant port. Examination within the abdomen revealed diffuse evidence of peritonitis with bile-stained fluid in the pelvis as well as in the right abdomen and mid abdomen. This was initially aspirated. There was also white fibrinous debris coating much of the small bowel and the cecum. This was able to be mobilized off the underlying bowel with some minimal effort. There were interloop adhesions caused by this fibrinous debris. I turned my attention to the cecum. I initially could not visualize any evidence of perforation. I began by mobilizing the cecum, incising the white line of Toldt, mobilizing the cecum, appendix, and terminal ileum medially. I then began stripping the fibrinous debris off the cecum, searching for potential area of perforation. I was able to visualize an obvious area of perforation with enteric fluid leaking from this on the anterior colon. This measured 2 to 3 mm in diameter. This was on the anterior cecum to the distal aspect probably a couple centimeters from the appendiceal base. I took down the mesoappendix using the LigaSure device. I divided the appendix at its base in continuity with the area of the perforation with two fires of the echelon stapler, using a blue load initially followed by a white load. The specimen was placed in a specimen retrieval sac and removed from the 12-lead port site. The fascia was closed with 0 Vicryl suture using a GraNee needle. The specimen was inspected externally to ensure that the area of perforation had been excised with the cuff of cecum. The abdomen was then copiously irrigated with 6 L of warm saline. I irrigated all 4 quadrants as well as the pelvis and the interloop bowel recesses. All irrigant was aspirated. Of note, cultures were obtained of the fluid within the abdomen prior to resecting the area of the perforation. A #19 round fluted drain was obtained and brought out through the left lower quadrant port site. It was secured with a 3-0 nylon suture. It was positioned such that it was both within the pelvis and the right lower quadrant. All ports and instruments were removed under direct vision. Pneumoperitoneum was carefully evacuated. A 0.25% Marcaine with epinephrine was infiltrated into each port site. Skin edges approximated with 4-0 Monocryl subcuticular suture. Dermabond was placed externally and a dry gauze dress was placed external to the drain site. There were no complications. Blood loss was negligible (less than 5 mL) and the patient was taken to the recovery room in stable condition. Job ID: [id number]
[2019-03-07] MEDS: Acetaminophen 1,000 MG in Premix Bag 1 BAG IVPB SCH ×2 (18:07→23:20)
--- NOTE | 2019-03-07 19:44 | PRG ---
DATE OF SERVICE: 03/07/2019 REASON FOR CONSULTATION: Hematochezia, arteriovenous malformation. SUBJECTIVE: Last night, the patient had an acute episode of hypotension as well as increased right lower quadrant abdominal pain that prompted urgent evaluation for repeat bleeding and/or perforation. His H and H were stable, but CT scan showed evidence of intraperitoneal free air consistent with a colonic perforation. He subsequently was taken to the operating room today for evaluation and noted to have a 2 to 3 mm perforation along the anterior wall of the cecum consistent with the site of prior intervention for the arteriovenous malformation, a clip was placed to close this perforation as well as a drain left in place. In the postoperative period, the patient is doing well with no acute complaints or problems. OBJECTIVE: VITAL SIGNS: Temperature 98.5, pulse 91, blood pressure 98/59, respiratory rate 18, and saturating 98% on room air. GENERAL: The patient is lying in bed, in no acute distress. Alert and oriented x4. CARDIOVASCULAR: Regular rate and rhythm. RESPIRATORY: Clear to auscultation bilaterally. ABDOMEN: Normoactive bowel sounds. Soft, nondistended. Tenderness to palpation in the right lower quadrant. EXTREMITIES: No cyanosis, clubbing, or edema. LABORATORY DATA: CBC with a white blood cell count of 23.7, hemoglobin 6.5, hematocrit 20.9, and platelets 242. Chemistry with a sodium of 139, potassium 3.9, chloride 108, CO2 of 24, BUN 7, creatinine 0.83, and glucose 121. IMAGING DATA: CT of the abdomen and pelvis was obtained on March 06, 2019, which showed free intraperitoneal air within the upper anterior abdomen and dependent along the anterior abdominal wall. Tiny gas pockets were seen adjacent to the duodenal bulb along with tiny gas pockets in the roshan pedis region. There was some evidence of possible pneumatosis involving the wall of the cecum as well as tiny gas pockets seen along the cecal wall. ASSESSMENT AND PLAN: The patient is a 54-year-old male with past medical history of osteoarthritis, gastroesophageal reflux disease, depression, skin cancer of the nares, status post excision, and hearing loss, presenting with hematochezia secondary to cecal arteriovenous malformation, now complicated by colonic perforation. Hematochezia. The patient initially presented with acute onset of large amount of hematochezia associated with tachycardia and hypotension concerning for a brisk gastrointestinal bleed. He subsequently underwent esophagogastroduodenoscopy and colonoscopy on March 05, 2019, which showed multiple arteriovenous malformations in the lower gastrointestinal tract, the largest of which showing high-risk stigmata of recent bleeding. They were successfully intervened upon with argon plasma coagulation with good hemostasis achieved at the end of maneuver. However, the patient had increased pain and hypotension the following day with repeat imaging of the region showing evidence of colonic perforation. He was subsequently taken to the operating room urgently with identification of the perforation along the anterior cecal wall and is currently doing well in the postoperative period. RECOMMENDATIONS: 1. We would continue to trend H and H, but we would not transfuse the patient given his sikh status. 2. Continue to monitor clinically for signs of active GI bleeding. 3. Continue PPI 40 mg daily. 4. We would continue broad-spectrum antibiotics in light of colonic perforation. 5. We would defer to General Surgery Service for further management of colonic perforation. We will continue to follow. Please call with any questions. Job ID: [id number]
[2019-03-07] MEDS: Enoxaparin Sodium 40 MG/0.4 ML SYRINGE SC SCH (19:51)
[2019-03-07] MEDS: Famotidine/PF 20 mg/2ml Vial SLOW IVP SCH (19:52)
[2019-03-07] MEDS: HYDROcodone/Acetaminophen 7.5/325 mg Tablet PO PRN (21:58)
[2019-03-07] MEDS: Famotidine 20 MG TAB PO SCH (23:22)
[2019-03-08] MEDS: HYDROcodone/Acetaminophen 7.5/325 mg Tablet PO PRN ×3 (02:21→21:01)
[2019-03-08] MEDS: Piperacillin/Tazobactam 4.5 GM in Sodium Chloride 0.9% 100 ML IVPB SCH ×4 (03:25→21:02)
[2019-03-08] MEDS: D5 1/2 NS w/20 mEq KCL 1,000 ML IV SCH ×5 (05:20→23:07)
[2019-03-08] MEDS: Acetaminophen 1,000 MG in Premix Bag 1 BAG IVPB SCH ×2 (05:20→13:04)
[2019-03-08] MEDS: Ketorolac Tromethamine 30 MG/ML VIAL IVP SCH ×4 (05:21→23:06)
--- NOTE | 2019-03-08 06:21 | PDOC.GSPN ---
Surgery Progress Note: Subj - Subjective Narrative: Mr. Manuel is a 54 year old male who is day 1 s/p repair of cecum perforation and appendectomy. He had no overnight events. He denies N/V. Abdominal pain is rated as 3-4/10 and is achy in quality. His ribera catheter has been removed and he is urinating without difficulty. He has not had a BM yet. He has been able to get out of bed to go to the bathroom without difficulty. He is tolerating water well and has an appetite. Nurse reported minimal output from drain overnight. Surgery Progress Note: Obj - Vital signs Vital signs: Vital Signs - Most Recent Temp Pulse Resp BP Pulse Ox 98.9 F 93 18 98/56 L 92 L 03/08/19 04:00 03/08/19 04:00 03/08/19 04:00 03/08/19 04:00 03/08/19 04:00 - Physical Exam General: no distress Cardiovascular: regular rate and rhythm, no murmur Respiratory: clear to auscultation Abdomen: soft, nondistended, positive bowel sounds (NABS), tender (only in RLQ, no signs of peritonitis) Wound: dressing clean,dry,intact (dressing over drain), healing well (other two incision sites are without erythema, warmth or tenderness) Surgery Progress Note: Results - Labs Result Diagrams: 03/07/19 05:05 03/07/19 05:05 Lab results: Labs for 03/08 have not been obtained, but CBC and CMP are ordered for this morning. Surgery Progress Note: A/P - Problem (1) Cecum perforation Current Visit: Yes Code(s): K35.32 - ACUTE APPENDICITIS WITH PERF AND LOC PERITONITIS, W/O ABSCS Status: Suspected Assessment and Plan: Patient is recovering well after the operation. He will continue to be monitored for postoperative complications. Plan to advance his diet to liquids today and continue advancing as tolerated. Continue toradol and acetaminophen prn for pain. Continue Zosyn. Will follow up on CBC and CMP this morning and continue to trend his H&H.
[2019-03-08 07:54] LABS: #Eosinphils 0.1 thou/uL (0.0-0.7); #Lymphocytes 0.8 thou/uL (1.20-3.40); #Monocytes 1.2 thou/uL (0.11-0.59); #Neutrophils 19.9 thou/uL (1.40-6.50); %Basophils 0.2 % (0.0-1.0); %Eosinophils 0.2 % (0.0-10.0); %Lymphocytes 3.8 % (21.0-51.0); %Monocytes 5.3 % (0.0-10.0); %Neutrophils 90.5 % (42.0-75.0); Hemoglobin 5.4 g/dL (14.0-18.0); Mean Corpuscular HGB CONC 30.2 g/dL (32.0-36.0); Mean Corpuscular Hemoglobin 25.6 pg (27.0-31.0); Mean Corpuscular Volume 84.9 fL (78.0-98.0); Mean Platelet Volume 8.9 fL (7.4-10.4); Platelet Count 221 thou/uL (130-400); RBC Distribution Width 20.3 % (11.5-14.5)
[2019-03-08 08:01] LABS: Anion Gap 9 mmol/L (10-20); BUN (Urea Nitrogen) 14 mg/dL (8.4-25.7); Calc. Creatinine Clearance 122 mL/min (70-130); Calcium 8.5 mg/dL (7.8-10.44); Carbon Dioxide 24 mmol/L (22-29); Chloride 107 mmol/L (98-107); Estimated GFR-MDRD 89; Glucose 122 mg/dL (70-105); Potassium 3.3 mmol/L (3.5-5.1); Sodium 137 mmol/L (136-145)
[2019-03-08] MEDS: Famotidine/PF 20 mg/2ml Vial SLOW IVP SCH ×2 (08:44→21:42)
[2019-03-08] MEDS: Folic Acid 1 MG TAB PO SCH (08:44)
[2019-03-08] MEDS: Famotidine 20 MG TAB PO SCH ×2 (08:44→20:44)
[2019-03-08] MEDS: Pantoprazole 40 MG VIAL IVP SCH (08:45)
--- NOTE | 2019-03-08 10:42 | PDOC.HOSPP ---
- Subjective Encounter Date: 03/08/19 Encounter Time: 10:36 Subjective: Patient seen and examined. POD #1 with perforated cecum and appy. Tolerating water, patient states he is hungry. Surgery advancing diet to liquids. Passing gas, no BM. Denies further GI bleeding. Expected post operative pain, worse with movement and deep breaths. Using incentive spectrometry as directed, encouraged to use every hour while awake. Updated patient on low hemoglobin, he continues to decline blood transfusion secondary to anglican beliefs. - Objective Vital Signs & Weight: Vital Signs (12 hours) Temp Pulse Resp BP Pulse Ox 03/08/19 08:44 98.6 F 68 16 110/71 93 L 03/08/19 04:00 98.9 F 93 18 98/56 L 92 L 03/08/19 00:51 98.5 F 89 18 89/51 L 94 L Weight Weight 202 lb Most Recent Monitor Data Heart Rate from ECG 73 NIBP 111/78 NIBP BP-Mean 89 Respiration from ECG 14 SpO2 99 I&O: 03/07/19 03/08/19 03/09/19 06:59 06:59 06:59 Intake Total 0 Output Total 730 Balance -730 Result Diagrams: 03/08/19 07:24 03/08/19 07:24 Additional Labs: Accuchecks 03/07/19 14:14 POC Glucose 139 H Radiology Reviewed by me: Yes ROS - Review of Systems Constitutional: reports: malaise. denies: fever, chills, sweats, weakness, other Eyes: denies: vision change ENT: denies: nose congestion, throat pain Respiratory: denies: cough, dry, shortness of breath, wheezing Cardiovascular: denies: chest pain, palpitations Gastrointestinal: reports: abdominal pain, other (Incisional tenderness). denies: nausea, vomitting, melena, hematochezia Genitourinary: reports: dysuria (Secondary to ribera cath). denies: frequency, incontinence, hematuria, retention Musculoskeletal: denies: neck pain, back pain Skin: denies: rash Neurological: denies: weakness - Medication Medications: Active Medications Generic Name Dose Route Start Last Admin Trade Name Freq PRN Reason Stop Dose Admin Hydrocodone Bitart/Acetaminophen 1 tab 03/08/19 12:02 03/07/19 21:58 [place] 7.5/325 PO 1 tab Q4H PRN Administration Moderate Pain (4-6) Hydrocodone Bitart/Acetaminophen 2 tab 03/08/19 12:02 03/08/19 02:21 [place] 7.5/325 PO 2 tab Q4H PRN Administration Severe Pain (7-10) Enoxaparin Sodium 40 mg 03/07/19 21:00 03/07/19 19:51 Lovenox SC 40 mg 2100 KRISTIAN Administration Famotidine 20 mg 03/07/19 21:00 03/08/19 08:44 Pepcid PO Not Given Q12HR KRISTIAN Famotidine 20 mg 03/07/19 21:00 03/08/19 08:44 Pepcid SLOW IVP 20 mg Q12HR KRISTIAN Administration Folic Acid 1 mg 03/07/19 09:00 03/08/19 08:44 Folvite PO 1 mg DAILY KRISTIAN Administration Piperacillin Sod/Tazobactam 100 mls @ 200 mls/hr 03/06/19 22:00 03/08/19 08: 45 Sod 4.5 gm/ Sodium Chloride IVPB 100 mls 0400,1000,1600,2200 KRISTIAN Administration Acetaminophen 1,000 mg/ Device 100 mls @ 400 mls/hr 03/07/19 18:00 03/08/19 05:20 IVPB 03/08/19 12:14 Not Given Q6HR KRISTIAN Potassium Chloride/Dextrose/Sod Cl 1,000 mls @ 120 mls/hr 03/07/19 12:25 02/17 05:20 D5 1/2 Ns W/20 Meq Kcl IV 1,000 mls .[id number] KRISTIAN Administration Potassium Chloride/Dextrose/Sod Cl 1,000 mls @ 70 mls/hr 03/08/19 08:15 03/08 09:13 D5 1/2 Ns W/20 Meq Kcl IV Not Given .[id number] KRISTIAN Ketorolac Tromethamine 30 mg 03/07/19 12:00 03/08/19 05:21 Toradol IVP 03/10/19 12:01 30 mg Q6HR KRISTIAN Administration Pantoprazole Sodium 40 mg 03/05/19 21:00 03/08/19 08:45 Protonix IVP 40 mg Q12HR KRISTIAN Administration - Exam NAD, awake alert Eye: PERRL Neck: supple, no JVD Heart: RRR, no murmur Respiratory: CTAB, no wheezes, no rales, no ronchi Gastrointestinal: soft, non-distended, normal bowel sounds, tender to palpation. negative: distended Extremities: no edema Skin: normal turgor Neurological: CN's grossly intact Hosp A/P (1) Anemia due to acute blood loss Code(s): D62 - ACUTE POSTHEMORRHAGIC ANEMIA Status: Acute (2) AV malformation of GI tract Code(s): K55.20 - ANGIODYSPLASIA OF COLON WITHOUT HEMORRHAGE Status: Acute (3) GI bleed Code(s): K92.2 - GASTROINTESTINAL HEMORRHAGE, UNSPECIFIED Status: Acute (4) Leukocytosis (leucocytosis) Code(s): D72.829 - ELEVATED WHITE BLOOD CELL COUNT, UNSPECIFIED Status: Acute (5) Orthostatic hypotension Code(s): I95.1 - ORTHOSTATIC HYPOTENSION Status: Acute (6) S/P laparoscopic appendectomy Status: Acute (7) Syncope Code(s): R55 - SYNCOPE AND COLLAPSE Status: Acute (8) Anxiety and depression Code(s): F41.9 - ANXIETY DISORDER, UNSPECIFIED; F32.9 - MAJOR DEPRESSIVE DISORDER, SINGLE EPISODE, UNSPECIFIED Status: Chronic (9) Obesity (BMI 30.0-34.9) Code(s): E66.9 - OBESITY, UNSPECIFIED Status: Chronic (10) Patient is Roman Catholic Code(s): Z78.9 - OTHER SPECIFIED HEALTH STATUS Status: Chronic (11) Cecum perforation Code(s): K35.32 - ACUTE APPENDICITIS WITH PERF AND LOC PERITONITIS, W/O ABSCS Status: Suspected - Plan old records reviewed/req, continue antibiotics, PT/OT Updated patient concerning lower Hgb, patient continues to refuse blood transfusion secondary to anglican beliefs. Advancing diet per surgery recommendations Perioperative care Drain management Continue ABX Encourage ambulation Use incentive spirometry Q1 hour while awake Appreciate recs from Surgery and GI
[2019-03-08] MEDS ORDERED: Acetaminophen 325 MG TAB PO PRN (18:00)
--- NOTE | 2019-03-08 18:31 | PRG ---
DATE OF SERVICE: 03/08/2019 REASON FOR CONSULTATION: Hematochezia, arteriovenous malformation, status post cautery. SUBJECTIVE: The patient went to the operating room yesterday for surgical evaluation of probable colonic perforation with finding of a 2 mm to 3 mm perforation along the anterior wall of the cecum. A drain was placed during the operation itself and he was transferred back to lepe. Today, he states that he does have some right lower quadrant abdominal discomfort/pain, but is currently controlled with his pain medication regimen. He has not had a bowel movement since the surgery although either currently, he has been able to walk around the lepe multiple times at this point with no assistance and no difficulty. At this time, he denies any nausea, vomiting, fevers, chills, hematemesis, melena, or hematochezia. OBJECTIVE: VITAL SIGNS: Temperature 98.6, pulse 87, blood pressure 121/67, respiratory rate 18, and saturating 93% on room air. GENERAL: The patient was lying in bed, in no acute distress. Alert and oriented x4. CARDIOVASCULAR: Regular rate and rhythm. RESPIRATORY: Clear to auscultation bilaterally. ABDOMEN: Normoactive bowel sounds. Soft and nondistended. Tenderness to palpation in the right lower quadrant with NAHEED drain in place with serosanguineous fluid in the bulb. EXTREMITIES: No cyanosis, clubbing, or edema. LABORATORY DATA: CBC with a white blood cell count of 22, hemoglobin 5.4, hematocrit 17.8, and platelets 221. Chemistry with a sodium of 137, potassium 3.3, chloride 107, CO2 of 24, BUN 14, creatinine 0.89, and glucose 122. IMAGING DATA: No current GI imaging is available for review. ASSESSMENT AND PLAN: The patient is a 54-year-old male with past medical history of osteoarthritis; gastroesophageal reflux disease; depression; skin cancer of the nares, status post excision; and hearing loss; presenting with hematochezia secondary to cecal arteriovenous malformation, status post argon plasma coagulation, now complicated by colonic perforation. Hematochezia. The patient initially presented with acute onset of large amount of hematochezia associated with tachycardia and hypertension, concerning for a brisk gastrointestinal bleed. He subsequently underwent EGD and colonoscopy on March 05, 2019, which showed multiple arteriovenous malformations in the cecum. The largest of which showing high-risk stigmata of recent bleeding. They were successfully intervened upon with argon plasma coagulation with good hemostasis achieved at the end of the maneuver. However, in the postprocedure setting, the patient had increased pain and hypotension with repeat imaging showing evidence of colonic perforation. He was subsequently taken to the operating room on March 07, 2019, with identification of the perforation along the anterior cecal wall and is currently doing well in the postoperative period. The patient has been able to ambulate without difficulty, although he has not had a bowel movement since the surgery. He further denies any evidence of gastrointestinal bleeding. RECOMMENDATIONS: 1. We would continue to trend H and H, but minimize lab draws as much as humanly possible given his alevism status. 2. Continue to monitor clinically for signs of active GI bleeding. 3. We would continue PPI 40 mg daily in light of his outpatient acid suppression regimen. 4. We would continue broad-spectrum antibiotics in light of chronic perforation. Could potentially transfer the patient to broader spectrum oral antibiotics in preparation for discharge. 5. We will defer to General Surgery Service for further management concerning the colonic perforation. We will continue to follow. Please call with any questions. Job ID: [id number]
[2019-03-08] MEDS: Enoxaparin Sodium 40 MG/0.4 ML SYRINGE SC SCH (20:43)
[2019-03-09] MEDS: Piperacillin/Tazobactam 4.5 GM in Sodium Chloride 0.9% 100 ML IVPB SCH ×4 (05:11→23:14)
[2019-03-09] MEDS: Ketorolac Tromethamine 30 MG/ML VIAL IVP SCH ×3 (05:12→17:33)
[2019-03-09 06:17] LABS: Hemoglobin 5.5 g/dL (14.0-18.0)
[2019-03-09 06:35] LABS: Mean Corpuscular Hemoglobin 26.5 pg (27.0-31.0); Mean Corpuscular Volume 85.4 fL (78.0-98.0); Mean Platelet Volume 8.9 fL (7.4-10.4); Platelet Count 265 thou/uL (130-400); RBC Distribution Width 20.6 % (11.5-14.5); Red Blood Cell (RBC) Count 2.08 mill/uL (4.70-6.10)
--- NOTE | 2019-03-09 06:42 | PDOC.GSPN ---
Surgery Progress Note: Subj - Subjective Narrative: Mr. Manuel is a 54 y/o male 2 days s/p partial cecectomy and laparoscopic appendectomy following peritonitis secondary to cecal perforation. Pt states that he "feels better" than yesterday. Abdominal pain is rated as a 2-3/10 achy pain localized to the RLQ that only occurs when pt tries to sit up or coughs. Pt says he was a bit cold over night and this morning. Denies N/ V, hematochezia, melena. Pt is urinating without difficulty and is having BMs that are "mostly watery but thickening up compared to yesterday". He has been up walking laps around the floor and is using his incentive spirometry. Appetite is good, tolerating water, beef broth, jellos yesterday and hungry for breakfast. Nurse reported 75mL output from drain overnight. Surgery Progress Note: Obj - Vital signs Vital signs: Vital Signs - Most Recent Temp Pulse Resp BP Pulse Ox 98.0 F 65 16 111/73 98 03/09/19 03:40 03/09/19 03:40 03/09/19 03:40 03/09/19 03:40 03/09/19 03:40 - Physical Exam General: no distress, other (Pt was out of bed sitting in chair in no apparent distress.) Cardiovascular: regular rate and rhythm, other (RRR without MGR) Abdomen: soft, nondistended, positive bowel sounds, other (tender only RLQ (no guarding, rigidity, rebound tenderness)) Wound: other (dressing clean, dry, and intact over drain, healing well - no warmth, tenderness, erythema, or swelling of incision sites.) Surgery Progress Note: Results - Labs Result Diagrams: 03/10/19 04:33 03/10/19 04:33 Lab results: Laboratory Results - last 24 hr 03/09/19 05:43 Hgb 5.5 L* Labs for 03/09 were drawn this a.m - still pending full results Surgery Progress Note: A/P - Problem (1) Cecum perforation Current Visit: Yes Code(s): K35.32 - ACUTE APPENDICITIS WITH PERF AND LOC PERITONITIS, W/O ABSCS Status: Suspected - Plan Plan: Pt continues to recover well following surgery and we will monitor for post-op complications. Continue norco, toradol, and acetaminophen prn for pain. Continue Zosyn. Will reassess following CBC this morning and continue to trend H&Hs. Plan is to advance diet from Full to Regular today if tolerating. continue to monitor severe anemia.. Can't trransfuse as he is [employer].
[2019-03-09 06:51] LABS: #Eosinphils 0.4 thou/uL (0.0-0.7); #Lymphocytes 0.9 thou/uL (1.20-3.40); #Neutrophils 13.7 thou/uL (1.40-6.50); %Basophils 0.3 % (0.0-1.0); %Eosinophils 2.3 % (0.0-10.0); %Lymphocytes 5.7 % (21.0-51.0); %Monocytes 6.2 % (0.0-10.0); %Neutrophils 85.5 % (42.0-75.0)
[2019-03-09 06:52] LABS: Anisocytosis SLIGHT = 6-15 cells (100X) (0-5/hpf); Elliptocytes SLIGHT = 2-5 cells (100X) (0-1/hpf); MDiff Complete? YES; Platelet Morphology Comment Appears Adequate
[2019-03-09] MEDS: Famotidine 20 MG TAB PO SCH ×2 (08:35→20:01)
[2019-03-09] MEDS: Folic Acid 1 MG TAB PO SCH (08:35)
[2019-03-09] MEDS ORDERED: Pantoprazole 40 MG VIAL IVP SCH (09:00)
--- NOTE | 2019-03-09 11:45 | PDOC.HOSPP ---
- Subjective Subjective: Patient seen and examined. Patient clinically improving. Tolerated diet yesterday of liquids, had grits this morning without nausea or vomiting. Still with expected post operative pain. NAHEED drain with output. Walking laps around the unit. Labs improving. - Objective Vital Signs & Weight: Vital Signs (12 hours) Temp Pulse Resp BP BP Pulse Ox 03/09/19 08:00 97.9 F 91 18 125/77 96 03/09/19 03:40 98.0 F 65 16 111/73 98 03/09/19 00:09 97.5 F L 77 16 90/56 L 94 L Weight Weight 202 lb Most Recent Monitor Data Heart Rate from ECG 73 NIBP 111/78 NIBP BP-Mean 89 Respiration from ECG 14 SpO2 99 I&O: 03/08/19 03/09/19 03/10/19 06:59 06:59 06:59 Intake Total 0 3250 Output Total 730 150 Balance -730 3100 Result Diagrams: 03/09/19 05:43 03/08/19 07:24 ROS - Medication Medications: Active Medications Generic Name Dose Route Start Last Admin Trade Name Freq PRN Reason Stop Dose Admin Hydrocodone Bitart/Acetaminophen 1 tab 03/08/19 12:02 03/08/19 17:13 [place] 7.5/325 PO 1 tab Q4H PRN Administration Moderate Pain (4-6) Hydrocodone Bitart/Acetaminophen 2 tab 03/08/19 12:02 03/08/19 21:01 [place] 7.5/325 PO 2 tab Q4H PRN Administration Severe Pain (7-10) Enoxaparin Sodium 40 mg 03/07/19 21:00 03/08/19 20:43 Lovenox SC 40 mg 2100 KRISTIAN Administration Famotidine 20 mg 03/07/19 21:00 03/09/19 08:35 Pepcid PO 20 mg Q12HR KRISTIAN Administration Folic Acid 1 mg 03/07/19 09:00 03/09/19 08:35 Folvite PO 1 mg DAILY KRISTIAN Administration Piperacillin Sod/Tazobactam 100 mls @ 200 mls/hr 03/06/19 22:00 03/09/19 09: 40 Sod 4.5 gm/ Sodium Chloride IVPB 100 mls 0400,1000,1600,2200 KRISTIAN Administration Ketorolac Tromethamine 30 mg 03/07/19 12:00 03/09/19 05:12 Toradol IVP 03/10/19 12:01 30 mg Q6HR KRISTIAN Administration Pantoprazole Sodium 40 mg 03/09/19 09:00 03/09/19 08:35 Protonix PO 40 mg DAILY KRISTIAN Administration Sodium Chloride 10 ml 03/07/19 12:25 03/09/19 09:41 Flush - Normal Saline IVF 10 ml PRN PRN Administration Saline Flush - Exam NAD, awake alert Eye: PERRL Eye - other findings: EOMI ENT: normocephalic atraumatic, moist mucosa Neck: supple Heart: RRR, no murmur, normal peripheral pulses, murmur present Respiratory: CTAB, no wheezes, no ronchi Gastrointestinal: soft, non-tender, non-distended, normal bowel sounds Gastrointestinal - other findings: Bandage clean dry and intact. NAHEED drain in position, minimal out Hosp A/P (1) Anemia due to acute blood loss Code(s): D62 - ACUTE POSTHEMORRHAGIC ANEMIA Status: Acute (2) AV malformation of GI tract Code(s): K55.20 - ANGIODYSPLASIA OF COLON WITHOUT HEMORRHAGE Status: Acute (3) GI bleed Code(s): K92.2 - GASTROINTESTINAL HEMORRHAGE, UNSPECIFIED Status: Acute (4) Leukocytosis (leucocytosis) Code(s): D72.829 - ELEVATED WHITE BLOOD CELL COUNT, UNSPECIFIED Status: Acute (5) Orthostatic hypotension Code(s): I95.1 - ORTHOSTATIC HYPOTENSION Status: Acute (6) S/P laparoscopic appendectomy Status: Acute (7) Syncope Code(s): R55 - SYNCOPE AND COLLAPSE Status: Acute (8) Anxiety and depression Code(s): F41.9 - ANXIETY DISORDER, UNSPECIFIED; F32.9 - MAJOR DEPRESSIVE DISORDER, SINGLE EPISODE, UNSPECIFIED Status: Chronic (9) Obesity (BMI 30.0-34.9) Code(s): E66.9 - OBESITY, UNSPECIFIED Status: Chronic (10) Patient is Protestant Code(s): Z78.9 - OTHER SPECIFIED HEALTH STATUS Status: Chronic (11) Cecum perforation Code(s): K35.32 - ACUTE APPENDICITIS WITH PERF AND LOC PERITONITIS, W/O ABSCS Status: Suspected - Plan Patient aware of low Hgb, patient continues to decline blood transfusion secondary to christian beliefs - slowly improving Advancing diet, doing well Perioperative care Drain management Continue ABX e. coli sensitivity reviewed, will be able to change to oral combination on D/c , Cipro/ Flagyl for good gram neg and anaerobe coverage Doing well with ambulation Using incentive spirometry Q1 hour while awake Appreciate recs from Surgery and GI Patient anxious to go home, likely tomorrow if ok with specialist
[2019-03-09] MEDS ORDERED: ePHEDrine 50 MG/ML VIAL ONE (15:21)
[2019-03-09] MEDS ORDERED: Metoclopramide HCl 10 MG/2 ML VIAL ONE (15:21)
[2019-03-09] MEDS ORDERED: Rocuronium Bromide 10 MG/ML (10ML VIAL) ONE (15:21)
[2019-03-09] MEDS ORDERED: PROPOFOL 200 MG/20 ML VIAL ONE (15:21)
[2019-03-09] MEDS ORDERED: Lidocaine 1% PF 5 ML VIAL ONE (15:21)
[2019-03-09] MEDS ORDERED: PHENYLEPHRINE-NS 100 MCG/ML 10 ML SYRINGE ONE (15:21)
[2019-03-09] MEDS ORDERED: Ondansetron PF 4 MG/2 ML Vial ONE (15:21)
[2019-03-09] MEDS: HYDROcodone/Acetaminophen 7.5/325 mg Tablet PO PRN (20:01)
--- NOTE | 2019-03-09 20:41 | PRG ---
DATE OF SERVICE: 03/09/2019 REASON FOR CONSULTATION: Hematochezia and arteriovenous malformation, status post cautery. SUBJECTIVE: The patient states that he is doing well today with no acute events or problems overnight. He continues to have tenderness in the right lower quadrant, but has been able to ambulate throughout the lepe without difficulty despite discomfort. He did have a bowel movement yesterday that was semi-solid in consistency with no difficulty with defecation. At this time, he denies any nausea, vomiting, fevers, chills, hematemesis, melena, or hematochezia. OBJECTIVE: VITAL SIGNS: Temperature 98, pulse 94, blood pressure 116/69, respiratory rate 18, and saturating 96% on room air. GENERAL: The patient was sitting in a chair at bedside, in no acute distress. Alert and oriented x4. CARDIOVASCULAR: Regular rate and rhythm. RESPIRATORY: Clear to auscultation bilaterally. ABDOMEN: Normoactive bowel sounds. Soft and nondistended. Tenderness to palpation in the right lower quadrant. NAHEED drain in place with mildly serosanguineous fluid in the bulb. EXTREMITIES: No cyanosis, clubbing, or edema. LABORATORY DATA: CBC with a white blood cell count of 16, hemoglobin 5.5, hematocrit 17.8, and platelets 265. IMAGING DATA: No current GI imaging is available for review. ASSESSMENT AND PLAN: The patient is a 54-year-old male with past medical history of osteoarthritis; gastroesophageal reflux disease; depression; skin cancer of the nares, status post excision; and hearing loss, presenting with hematochezia secondary to cecal arteriovenous malformation, status post argon plasma coagulation, now complicated by colonic perforation. Hematochezia: The patient initially presented with acute onset of large amount of hematochezia and underwent urgent EGD and colonoscopy on March 05, 2019, which showed multiple arteriovenous malformations in the cecum, the largest of which showing high-risk stigmata of recent bleeding. They were successfully intervened upon with argon plasma coagulation with good hemostasis achieved at the end of the maneuver. However, in the postprocedure setting, the patient had increased pain and hypotension with repeat imaging showing evidence of colonic perforation. He was subsequently taken to the operating room on March 07, 2019, with identification of perforation along the anterior cecal wall with successful closure of the perforation. In the postoperative period, the patient is doing well and has had a bowel movement without difficulty and is ambulating around the lepe also without difficulty. At the current time, his H and H have been relatively stable since surgery with no further drops and he has not had any further episodes of hematochezia making rebleeding of the lesions highly unlikely. RECOMMENDATIONS: 1. We would continue to trend H and H, but minimize lab draws as much as humanly possible given his congregational status and significant anemia. 2. Continue to monitor clinically for signs of active GI bleeding. 3. We would continue PPI 40 mg daily in light of his outpatient acid suppression regimen. 4. Continue broad-spectrum antibiotics in light of colonic perforation. 5. We would defer to General Surgery Service for further management concerning colonic perforation of the NAHEED drain. 6. We will continue to follow. Please call with any questions. Job ID: [id number]
[2019-03-09 21:01] LABS: Hemoglobin 5.7 g/dL (14.0-18.0)
[2019-03-09] MEDS ORDERED: Sodium Chloride 0.9% 1,000 ML IV SCH (21:15)
[2019-03-09] MEDS ORDERED: Fentanyl 250 MCG/5 ML VIAL ONE (21:42)
[2019-03-09] MEDS ORDERED: Fentanyl 100 MCG/2 ML VIAL ONE (21:42)
[2019-03-09] MEDS ORDERED: Famotidine/PF 20 mg/2ml Vial ONE (21:43)
[2019-03-09] MEDS ORDERED: Albumin 5% 500 ML ONE (21:43)
[2019-03-09] MEDS ORDERED: SUGAMMADEX SODIUM 500 MG/5 ML VIAL ONE (22:12)
[2019-03-09] MEDS ORDERED: Piperacillin/Tazobactam 3.375 GM VIAL ONE (22:12)
[2019-03-09] MEDS ORDERED: D5 LR w/20 mEq KCL 1,000 ML IV SCH (23:30)
[2019-03-09] MEDS: Morphine 4 MG/ML VIAL SLOW IVP PRN (23:47)
[2019-03-09] MEDS: Acetaminophen 1,000 MG in Premix Bag 1 BAG IVPB SCH (23:50)
[2019-03-10] MEDS: Potassium Chloride 20 MEQ, Admixture Fee 1 EACH in Dextrose 5%-Lactated Ringers 1,000 ML IV SCH ×3 (00:16→23:37)
[2019-03-10 00:20] LABS: Hemoglobin 4.1 g/dL (14.0-18.0); Mean Corpuscular HGB CONC 30.2 g/dL (32.0-36.0); Mean Corpuscular Hemoglobin 25.6 pg (27.0-31.0); Platelet Count 287 thou/uL (130-400); RBC Distribution Width 22.9 % (11.5-14.5); Red Blood Cell (RBC) Count 1.61 mill/uL (4.70-6.10); White Blood Cell (WBC) Count 15.6 thou/uL (4.8-10.8)
[2019-03-10] MEDS ORDERED: MORPHINE 10 MG/ML SYRINGE SLOW IVP PRN (00:40)
[2019-03-10] MEDS ORDERED: Meperidine HCl/PF 25 MG/ML VIAL SLOW IVP SCH (00:45)
[2019-03-10 00:47] LABS: Band 3 % (5-11); Hypochromia MODERATE=16-30 cells (100X) (0-5/hpf); Lymphocytes 8 % (21-51); MDiff Complete? YES; Monocytes 2 % (0-10); Neutrophil 87 % (42-75); Platelet Morphology Comment Appears Adequate; Reflex for Review?? YES
[2019-03-10] MEDS: Morphine 4 MG/ML VIAL SLOW IVP PRN ×9 (01:36→23:33)
[2019-03-10] MEDS: Acetaminophen 1,000 MG in Premix Bag 1 BAG IVPB SCH ×3 (04:23→17:14)
[2019-03-10] MEDS: Piperacillin/Tazobactam 3.375 GM in Sodium Chloride 0.9% 100 ML IVPB SCH ×4 (04:24→21:02)
[2019-03-10 05:16] LABS: Hemoglobin 3.9 g/dL (14.0-18.0); Mean Corpuscular HGB CONC 30.4 g/dL (32.0-36.0); Mean Corpuscular Volume 85.7 fL (78.0-98.0); Mean Platelet Volume 8.5 fL (7.4-10.4); Platelet Count 274 thou/uL (130-400); RBC Distribution Width 20.8 % (11.5-14.5); White Blood Cell (WBC) Count 15.1 thou/uL (4.8-10.8)
[2019-03-10 05:17] LABS: #Eosinphils 0.1 thou/uL (0.0-0.7); #Monocytes 1.2 thou/uL (0.11-0.59); #Neutrophils 12.7 thou/uL (1.40-6.50); %Basophils 0.1 % (0.0-1.0); %Eosinophils 0.7 % (0.0-10.0); %Lymphocytes 6.6 % (21.0-51.0); %Monocytes 8.1 % (0.0-10.0); %Neutrophils 84.5 % (42.0-75.0)
[2019-03-10 05:24] LABS: Anion Gap 7 mmol/L (10-20); BUN (Urea Nitrogen) 7 mg/dL (8.4-25.7); Calc. Creatinine Clearance 164 mL/min (70-130); Calcium 7.9 mg/dL (7.8-10.44); Carbon Dioxide 26 mmol/L (22-29); Chloride 110 mmol/L (98-107); Estimated GFR-MDRD Greater than 90; Glucose 145 mg/dL (70-105); Potassium 3.2 mmol/L (3.5-5.1); Sodium 140 mmol/L (136-145)
--- NOTE | 2019-03-10 08:02 | PRG ---
DATE OF SERVICE: EVENT NOTE: Mr. Manuel is postoperative day #2 from a laparoscopic partial cecectomy and appendectomy in treatment of a cecal perforation and peritonitis. He had been doing well from that standpoint. His diet was being advanced appropriately. His vital signs were normal and his exam was unremarkable. This evening, however, he began to have bloody bowel movements. He passed several bowel movements with clots and bright red blood. He then became hypotensive and tachycardic, and had a syncopal episode, passed out and fell to the ground. He was returned to his bed and given a liter of fluid and his vital signs normalized significantly. His systolic pressure which has been in the 70s returned to about 105. His heart rate that had been in 120s returned down to about 94. When I was called by his nurse about this, I spoke with his blacking wheel tender, Dr. Pacheco. The patient's current hemoglobin this evening is 5.7. However, that is prior to being given fluid for resuscitation and I suspect the delusional effect would render his effective hemoglobin at about 4.5. In light of his apparent recurrent and potentially ongoing bleeding, we felt that an attempted further bowel prep and colonoscopy would potentially lead to even further blood loss, and we felt that the more expeditious action at this point would be to proceed with a right hemicolectomy to remove the segment of his colon, from which bleeding had been occurring. I therefore presented to the hospital this evening at 9:30 p.m. I discussed this with the patient and his brother. While I am not certain that this is the best course of action, I believe that it is for now, and I expressed this to the patient. He understands the inherent risks of operating on the patient with such a low hemoglobin, but in the face of potential ongoing bleeding, I feel this is the safest action at this point. I again spoke with Dr. Pacheco, who again confirmed that the only areas that he had seen that were potential for bleeding were in the cecum and proximal ascending colon. I would therefore at this time plan on proceeding with an open right hemicolectomy as I believe this is the quickest and safest procedure that I can perform to remedy this problem. This is being done emergently this evening. He is not receiving a bowel prep, but will receive IV antibiotics prior to his operation. They understand that he will return to the intensive care unit, potentially on the ventilator. They understand that the ultimate risk of his current situation with or without operation is . He agrees to proceed with surgery at this time. Job ID: [id number]
[2019-03-10] MEDS: Pantoprazole 40 MG VIAL IVP SCH (08:55)
[2019-03-10] MEDS: Folic Acid 1 MG TAB PO SCH (08:55)
[2019-03-10] MEDS: Promethazine HCl 25 MG/ML VIAL IM PRN (09:15)
[2019-03-10] MEDS: Iron, Sodium Ferric Gluconate 250 MG in Sodium Chloride 0.9% 100 ML IVPB SCH (14:20)
[2019-03-10] MEDS ORDERED: Potassium Chloride 40 MEQ in Premix Bag 1 BAG IVPB SCH (15:00)
[2019-03-10] MEDS: EPOETIN ALFA-EPBX (ESRD) 10,000 UNIT/ML VIAL SC SCH (15:13)
--- NOTE | 2019-03-10 15:25 | PRG ---
DATE OF SERVICE: 03/10/2019 SUBJECTIVE: Mr. Manuel is postoperative day #1 from open right hemicolectomy. He had recurrent severe GI bleeding yesterday following his initial GI bleed 4 days previously. He developed severe hemodynamic instability. He underwent surgery expeditiously as this was felt to be the quickest way to halt his bleeding. His immediate postoperative hemoglobin last night was 4.1. This morning, his hemoglobin is 3.9. He complains of appropriate abdominal pain. He really has not been out of bed significantly. He is tolerating ice chips. OBJECTIVE: On examination, VITAL SIGNS: He is afebrile. His pulse is generally in the 90s. However, I witnessed him stand, and his heart rate goes to 160. He clearly has orthostatic issues secondary to his severe anemia. His blood pressure is stable at about 130 systolic. His oxygenation appears to be excellent as well with 100% saturation on 2 L of oxygen. His urine output has been good at close to 100 mL/hour. LUNGS: Clear to auscultation. HEART: Regular rate and rhythm. ABDOMEN: Soft with dressing intact on his midline incision. This morning, there were reasonable bowel sounds. This afternoon, there are only scattered bowel sounds. I suspect this is because of the morphine that he has been receiving today. LABORATORY DATA: His chemistry profile reveals a potassium level that is a little bit low at 3.2. BUN and creatinine are normal. ASSESSMENT AND PLAN: The patient with severe anemia secondary to gastrointestinal bleed. He unfortunately cannot be transfused secondary to his Mormonism wendy. Because of his severe anemia and occasional instability, I will leave him in the intensive care unit today for observation. I have ordered intravenous iron to be given today, and I have started erythropoietin as well. He has had no bowel movement since surgery, indicating that he is likely not continuing to bleed. He did have a substantial volume of fresh clot within his colon at the time of this surgery indicating active bleeding up until the time of surgery. Hopefully, his void will be able to catch up with blood cell production in the near future. He was on Zosyn. I believe this can be safely stopped tomorrow. He had no further evidence of peritonitis at the time of his surgery. Diet can be resumed as his intestinal function seems to tolerate. Dr. Garcia was covering for the weekend, and I will see him again on Wednesday. Job ID: [id number]
--- NOTE | 2019-03-10 15:32 | PDOC.HOSPP ---
- Subjective Subjective: Seen and examined in ICU. Patient clinically worse. Developed further bleeding and was taken back to the OR. Patient breathing comfortably on room air. Patient somnolent and falls asleep frequently during interview. Expected abdominal pain. No surgical drain. I asked about blood transfusion and patient asked me not to bring it up again, continues to decline blood transfusion. - Objective Vital Signs & Weight: Vital Signs (12 hours) Temp 03/10/19 12:00 98.6 F 03/10/19 08:00 98.3 F 03/10/19 05:00 98.2 F Weight Weight 218 lb 7.649 oz Most Recent Monitor Data Heart Rate from ECG 96 NIBP 145/78 NIBP BP-Mean 100 Respiration from ECG 12 SpO2 97 I&O: 03/09/19 03/10/19 03/11/19 06:59 06:59 06:59 Intake Total 3250 3640 100 Output Total 150 890 710 Balance 3100 2750 -610 Result Diagrams: 03/10/19 04:33 03/10/19 04:33 Additional Labs: Accuchecks 03/09/19 20:42 POC Glucose 126 H ROS - Medication Medications: Active Medications Generic Name Dose Route Start Last Admin Trade Name Freq PRN Reason Stop Dose Admin Epoetin Waqas-epbx 10,000 unit 03/10/19 15:00 03/10/19 15:13 Retacrit SC 10,000 unit Q48H KRISTIAN Administration Folic Acid 1 mg 03/07/19 09:00 03/10/19 08:55 Folvite PO 1 mg DAILY KRISTIAN Administration Acetaminophen 1,000 mg/ Device 100 mls @ 400 mls/hr 03/09/19 23:59 03/10/19 11:32 IVPB 03/10/19 18:14 100 mls Q6HR KRISTIAN Administration Piperacillin Sod/Tazobactam 100 mls @ 200 mls/hr 03/10/19 04:00 03/10/19 08: 54 Sod 3.375 gm/ Sodium Chloride IVPB 100 mls 0400,1000,1600,2200 KRISTIAN Administration Potassium Chloride 20 meq/ 1,010 mls @ 175 mls/hr 03/10/19 00:15 03/10/19 09: 26 Miscellaneous Medication 1 IV 1,010 mls each/ Dextrose/Lactated Ringer INF KRISTIAN Administration 's Ferric Sodium Gluconate 120 mls @ 60 mls/hr 03/10/19 14:00 03/10/19 14:20 Complex 250 mg/ Sodium IVPB 03/11/19 03:59 120 mls Chloride 0200,1400 KRISTIAN Administration Morphine Sulfate 4 mg 03/09/19 23:24 03/10/19 11:34 Morphine SLOW IVP 4 mg Q2H PRN Administration Moderate Pain (4-6) Morphine Sulfate 6 mg 03/10/19 01:20 03/10/19 14:45 Morphine SLOW IVP 6 mg Q2H PRN Administration Severe Pain (7-10) Pantoprazole Sodium 40 mg 03/10/19 09:00 03/10/19 08:55 Protonix IVP 40 mg DAILY KRISTIAN Administration Promethazine HCl 12.5 mg 03/07/19 12:25 03/10/19 09:15 Phenergan IM 12.5 mg Q4H PRN Administration Nausea/Vomiting Sodium Chloride 10 ml 03/07/19 12:25 03/09/19 15:25 Flush - Normal Saline IVF 10 ml PRN PRN Administration Saline Flush - Exam ill appearing Eye: PERRL ENT: dry oral mucosa Neck: supple Heart: RRR, no murmur, no rubs Respiratory: CTAB, no wheezes, no rales, no ronchi Gastrointestinal: soft, non-tender Gastrointestinal - other findings: Abdominal dressing in place, clean bandage with scant dry blood Extremities: no edema Skin: normal turgor Neurological: CN's grossly intact Psychiatric: normal affect, A&O x 3, somnolent Hosp A/P (1) Anemia due to acute blood loss Code(s): D62 - ACUTE POSTHEMORRHAGIC ANEMIA Status: Acute (2) AV malformation of GI tract Code(s): K55.20 - ANGIODYSPLASIA OF COLON WITHOUT HEMORRHAGE Status: Acute (3) GI bleed Code(s): K92.2 - GASTROINTESTINAL HEMORRHAGE, UNSPECIFIED Status: Acute (4) Leukocytosis (leucocytosis) Code(s): D72.829 - ELEVATED WHITE BLOOD CELL COUNT, UNSPECIFIED Status: Acute (5) Orthostatic hypotension Code(s): I95.1 - ORTHOSTATIC HYPOTENSION Status: Acute (6) S/P laparoscopic appendectomy Status: Acute (7) Syncope Code(s): R55 - SYNCOPE AND COLLAPSE Status: Acute (8) Anxiety and depression Code(s): F41.9 - ANXIETY DISORDER, UNSPECIFIED; F32.9 - MAJOR DEPRESSIVE DISORDER, SINGLE EPISODE, UNSPECIFIED Status: Chronic (9) Obesity (BMI 30.0-34.9) Code(s): E66.9 - OBESITY, UNSPECIFIED Status: Chronic (10) Patient is Religious Code(s): Z78.9 - OTHER SPECIFIED HEALTH STATUS Status: Chronic (11) Cecum perforation Code(s): K35.32 - ACUTE APPENDICITIS WITH PERF AND LOC PERITONITIS, W/O ABSCS Status: Suspected - Plan Plan: ICU S/p open hemicolectomy emergently on 03/09/19, no further bleeding since Patient aware of low Hgb, patient continues to decline blood transfusion secondary to baptism beliefs No BM/ flatus since surgery Diet as tolerated, caution if develops N/v Perioperative care Continue ABX for now, e. coli sensitivity reviewed incentive spirometry Q1 hour while awake Appreciate recs from Surgery, ICU, and GI Agree with medications to help raise blood counts as patient refusing any blood transfusion
--- NOTE | 2019-03-10 18:23 | PRG ---
DATE OF SERVICE: 03/10/2019 REASON FOR CONSULTATION: Hematochezia and arteriovenous malformation, status post cautery. SUBJECTIVE: Last night, the patient had an acute episode of hypotension, tachycardia, and diaphoresis with a concurrent appearance of hematochezia characterized as bright-red blood per rectum. Given his recent history of bleeding arteriovenous malformations and his extremely low blood counts at this point, the decision was made to proceed to surgery for emergent surgery as a definitive measure for his recent bleeding/perforation. Subsequently, the patient underwent an open right hemicolectomy and this afternoon, seems to be doing well other than expected abdominal pain located in the right abdomen. He states that he has been using the pain medication and has been somewhat controlled during the course of his postop period. He is somewhat somnolent during the course of this interview and was falling asleep with the conversation. Currently, he denies any nausea, vomiting, fevers, chills, hematemesis, melena, or hematochezia. OBJECTIVE: VITAL SIGNS: Temperature 98.6, pulse 96, blood pressure 145/78, respiratory rate 12, saturating 97% on room air. GENERAL: The patient was lying in bed, in no acute distress. Alert and oriented x4. CARDIOVASCULAR: Tachycardic rate, but regular rhythm. RESPIRATORY: Clear to auscultation bilaterally. ABDOMEN: Hypoactive bowel sounds. Soft, nondistended. Tenderness to palpation in all abdominal quadrants. No surgical drain was in place. EXTREMITIES: No cyanosis, clubbing, or edema. LABORATORY DATA: CBC with a white blood cell count of 15.1, hemoglobin 3.9, hematocrit 12.8, platelets 274. Chemistry with a sodium of 140, potassium 3.2, chloride 110, CO2 of 26, BUN 7, creatinine 0.69, glucose 145. IMAGING DATA: No current GI imaging is available for review. ASSESSMENT AND PLAN: The patient is a 54-year-old male with a past medical history of osteoarthritis; gastroesophageal reflux disease; depression; skin cancer of the nares, status post excision; and hearing loss; presenting with hematochezia secondary to cecal arteriovenous malformations, status post argon plasma coagulation, but now complicated by both colonic perforation and rebleeding. Hematochezia. The patient's hospital course has been somewhat complicated thus far including colonoscopy performed on March 05, 2019, showing multiple arteriovenous malformations, that were intervened upon with argon plasma coagulation. In the postprocedure setting, the patient developed hypotension and increased right lower quadrant abdominal pain with imaging consistent with cecal perforation. He was subsequently taken to the operating room with closure of the cecal perforation only. However, on March 09, 2019, he experienced tachycardia, hypotension, and reappearance of bright-red blood per rectum concerning for rebleeding of 1 or more of these arteriovenous malformations. He subsequently went to the OR emergently and underwent a right hemicolectomy. In the postoperative period, he is doing well with no further evidence of GI bleeding and expected right lower/right-sided abdominal pain. At this point, I would consider this as a more definitive treatment for his hematochezia with complete removal of the arteriovenous malformations at this point with a right hemicolectomy. There were no observed significant sites other than the cecal and ascending colon arteriovenous malformations, again making this as a more definitive treatment. Given his bahai status and reluctance to receive blood product, again this was the correct decision regarding this patient rather than spending more time with a colonoscopy prep and possible endoscopic evaluation, which could have resulted in incomplete visualization. RECOMMENDATIONS: 1. We would continue to trend his H and H, but attempt to minimize lab draws as much as possible, given his bahai status and significant anemia. 2. Continue to monitor clinically for signs of active GI bleeding. 3. We would continue PPI daily in light of his outpatient acid suppression regimen. 4. Continue broad-spectrum antibiotics. 5. Agree with administration of IV iron and erythropoietin in an attempt to bolster bone marrow production of new red blood cells. 6. We would defer to General Surgery Service at this point for further management. We will sign off at this time as there are no additional modalities we can offer at this time. Please call with any additional questions or if the patient's status changes. Job ID: [id number]
[2019-03-10] MEDS ORDERED: Acetaminophen 325 MG TAB PO PRN (23:59)
[2019-03-10] MEDS ORDERED: HYDROcodone/Acetaminophen 7.5/325 mg Tablet PO PRN (23:59)
[2019-03-11] MEDS: Iron, Sodium Ferric Gluconate 250 MG in Sodium Chloride 0.9% 100 ML IVPB SCH (02:10)
[2019-03-11] MEDS: Piperacillin/Tazobactam 3.375 GM in Sodium Chloride 0.9% 100 ML IVPB SCH ×4 (04:38→21:10)
[2019-03-11 05:07] LABS: ALT (SGPT) 11 U/L (8-55); AST (SGOT) 11 U/L (5-34); Albumin 2.9 g/dL (3.5-5.0); Alkaline Phosphatase 61 U/L (40-150); Anion Gap 10 mmol/L (10-20); BUN (Urea Nitrogen) 4 mg/dL (8.4-25.7); Bilirubin, Total 0.2 mg/dL (0.2-1.2); Calc. Creatinine Clearance 162 mL/min (70-130); Calcium 8.4 mg/dL (7.8-10.44); Carbon Dioxide 26 mmol/L (22-29); Chloride 106 mmol/L (98-107); Estimated GFR-MDRD Greater than 90; Globulin 2.2 g/dL (2.4-3.5); Glucose 149 mg/dL (70-105); Potassium 3.6 mmol/L (3.5-5.1); Protein, Total 5.1 g/dL (6.0-8.3); Sodium 138 mmol/L (136-145)
[2019-03-11 05:10] LABS: Band 3 % (5-11); Elliptocytes SLIGHT = 2-5 cells (100X) (0-1/hpf); Eosinophils 2 % (0-10); Lymphocytes 7 % (21-51); MDiff Complete? YES; Mean Corpuscular HGB CONC 30.5 g/dL (32.0-36.0); Mean Corpuscular Hemoglobin 26.9 pg (27.0-31.0); Mean Corpuscular Volume 88.1 fL (78.0-98.0); Mean Platelet Volume 8.2 fL (7.4-10.4); Metamyelocyte 1 % (0-0); Monocytes 7 % (0-10); Neutrophil 79 % (42-75); Nucleated RBC 1 % (0); Platelet Count 370 thou/uL (130-400); Platelet Morphology Comment Appears Adequate; Polychromasia SLIGHT = 2-3 cells (100X) (0-2/hpf); RBC Distribution Width 21.2 % (11.5-14.5); Red Blood Cell (RBC) Count 1.51 mill/uL (4.70-6.10); Target Cells SLIGHT = 2-5 cells (100X) (0-1/hpf); White Blood Cell (WBC) Count 20.5 thou/uL (4.8-10.8)
[2019-03-11] MEDS: Morphine 4 MG/ML VIAL SLOW IVP PRN ×4 (06:06→19:13)
[2019-03-11] MEDS: Ondansetron PF 4 MG/2 ML Vial IVP PRN ×2 (06:10→19:55)
[2019-03-11] MEDS: Promethazine HCl 25 MG/ML VIAL IM PRN (06:23)
[2019-03-11 08:32] LABS: Magnesium 1.9 mg/dL (1.6-2.6); Phosphorus 2.1 mg/dL (2.3-4.7)
[2019-03-11] MEDS: Folic Acid 1 MG TAB PO SCH (08:48)
[2019-03-11] MEDS: Pantoprazole 40 MG VIAL IVP SCH (08:48)
[2019-03-11] MEDS: Potassium Chloride 20 MEQ, Admixture Fee 1 EACH in Dextrose 5%-Lactated Ringers 1,000 ML IV SCH (09:51)
[2019-03-11] MEDS ORDERED: Furosemide 20 MG/2 ML VIAL SLOW IVP SCH (12:00)
--- NOTE | 2019-03-11 13:28 | PRG ---
DATE OF SERVICE: 03/11/2019 SUBJECTIVE: Mr. Manuel is a 54-year-old man, who is postoperative day #1, status post exploratory laparotomy with right colectomy and primary anastomosis. His [employer] with post GI bleed, acute blood loss anemia. The patient is awake and alert today. He reports adequate pain control. OBJECTIVE: VITAL SIGNS: This morning include blood pressure 138/87, pulse is 103, respiratory rate is 17, maximum temperature in last 24 hours is 98.6 degrees Fahrenheit, and oxygen saturation is 99% on 2 L by nasal cannula oxygen. HEART: Reveals regular rate with mild sinus tachycardia. No murmurs or gallops auscultated. LUNGS: Clear to auscultation bilaterally. Breathing, regular and nonlabored. ABDOMEN: Soft and nondistended. Incision is intact, clean, and dry. NEUROLOGIC: Reveals no focal deficits present. LABORATORY FINDINGS: Today include a CBC with 20,500 white blood cells, hemoglobin and hematocrit of 4.0 and 13.3 respectively. Platelet count is 370,000. Metabolic profile; sodium 138, potassium 3.6, chloride is 106, bicarb is 26, BUN is 4, creatinine 0.72, glucose 149, magnesium 1.9, and phosphorus 2.1. IMPRESSION: 1. Postop day #1 status post laparotomy with right colectomy and primary anastomosis. 2. Stable acute blood loss anemia. 3. Acute hypokalemia. 4. Acute hypomagnesemia. 5. Acute hypophosphatemia. PLAN: 1. Correct abnormal electrolytes. 2. Decrease total fluid intake as the patient appears to be ahead on fluids with positive balance of 2750 mL in the last 24 hours and prior to that was 3.1 L the day before. 3. We will also give the patient one dose of furosemide 20 mg IV and monitor for hemostasis. Job ID: [id number] MTDD
--- NOTE | 2019-03-11 14:47 | PDOC.HOSPP ---
- Subjective Subjective: Patient seen and examined. Not much oral intake, jessica ice chips and water though no appetite. No N/V. No BM. No GI bleeding since surgery. No getting out of bed much. States he is very tired and cant get much sleep. Patient endorses depression. - Objective Vital Signs & Weight: Vital Signs (12 hours) Temp Pulse Ox 03/11/19 12:00 98.4 F 03/11/19 07:24 97 03/11/19 07:00 98.8 F 03/11/19 04:00 99.5 F Weight Weight 220 lb 14.451 oz Most Recent Monitor Data Heart Rate from ECG 105 NIBP 120/77 NIBP BP-Mean 91 Respiration from ECG 14 SpO2 94 I&O: 03/10/19 03/11/19 03/12/19 06:59 06:59 06:59 Intake Total 3640 2074 240 Output Total 890 5715 1755 Balance 5505 -299 -5631 Result Diagrams: 03/11/19 04:18 03/11/19 04:18 ROS - Medication Medications: Active Medications Generic Name Dose Route Start Last Admin Trade Name Freq PRN Reason Stop Dose Admin Epoetin Waqas-epbx 10,000 unit 03/10/19 15:00 03/10/19 15:13 Retacrit SC 10,000 unit Q48H KRISTIAN Administration Folic Acid 1 mg 03/07/19 09:00 03/11/19 08:48 Folvite PO 1 mg DAILY KRISTIAN Administration Piperacillin Sod/Tazobactam 100 mls @ 200 mls/hr 03/10/19 04:00 03/11/19 09: 43 Sod 3.375 gm/ Sodium Chloride IVPB 100 mls 0400,1000,1600,2200 KRISTIAN Administration Potassium Chloride 20 meq/ 1,010 mls @ 175 mls/hr 03/10/19 00:15 03/11/19 09: 51 Miscellaneous Medication 1 IV 1,010 mls each/ Dextrose/Lactated Ringer INF KRISTIAN Administration 's Morphine Sulfate 4 mg 03/09/19 23:24 03/11/19 14:28 Morphine SLOW IVP 4 mg Q2H PRN Administration Moderate Pain (4-6) Morphine Sulfate 6 mg 03/10/19 01:20 03/11/19 06:06 Morphine SLOW IVP 6 mg Q2H PRN Administration Severe Pain (7-10) Ondansetron HCl 4 mg 03/07/19 12:25 03/11/19 06:10 Zofran IVP 4 mg Q6H PRN Administration Nausea/Vomiting Pantoprazole Sodium 40 mg 03/10/19 09:00 03/11/19 08:48 Protonix IVP 40 mg DAILY KRISTIAN Administration Promethazine HCl 12.5 mg 03/07/19 12:25 03/11/19 06:23 Phenergan IM 12.5 mg Q4H PRN Administration Nausea/Vomiting Sodium Chloride 10 ml 03/07/19 12:25 03/09/19 15:25 Flush - Normal Saline IVF 10 ml PRN PRN Administration Saline Flush - Exam NAD Eye: PERRL, anicteric sclera ENT: moist mucosa Neck: supple, no JVD Heart: RRR, no murmur, no rubs, normal peripheral pulses Respiratory: CTAB, no wheezes, no rales Gastrointestinal: soft, non-tender. negative: no palpable masses, no hepatomegaly, no splenomegaly Gastrointestinal - other findings: Dressing intact. Extremities: no cyanosis, no edema Skin: normal turgor Neurological: CN's grossly intact, no weakness, no focal deficits Musculoskeletal: normal tone, generalized weakness Psychiatric: flat affect Psychiatric - other findings: Depressed mood. Hosp A/P (1) Anemia due to acute blood loss Code(s): D62 - ACUTE POSTHEMORRHAGIC ANEMIA Status: Acute (2) AV malformation of GI tract Code(s): K55.20 - ANGIODYSPLASIA OF COLON WITHOUT HEMORRHAGE Status: Acute (3) GI bleed Code(s): K92.2 - GASTROINTESTINAL HEMORRHAGE, UNSPECIFIED Status: Acute (4) Leukocytosis (leucocytosis) Code(s): D72.829 - ELEVATED WHITE BLOOD CELL COUNT, UNSPECIFIED Status: Acute (5) Orthostatic hypotension Code(s): I95.1 - ORTHOSTATIC HYPOTENSION Status: Acute (6) S/P laparoscopic appendectomy Status: Acute (7) Syncope Code(s): R55 - SYNCOPE AND COLLAPSE Status: Acute (8) Anxiety and depression Code(s): F41.9 - ANXIETY DISORDER, UNSPECIFIED; F32.9 - MAJOR DEPRESSIVE DISORDER, SINGLE EPISODE, UNSPECIFIED Status: Chronic (9) Obesity (BMI 30.0-34.9) Code(s): E66.9 - OBESITY, UNSPECIFIED Status: Chronic (10) Patient is Zoroastrianism Code(s): Z78.9 - OTHER SPECIFIED HEALTH STATUS Status: Chronic (11) Cecum perforation Code(s): K35.32 - ACUTE APPENDICITIS WITH PERF AND LOC PERITONITIS, W/O ABSCS Status: Suspected - Plan Plan: ICU S/p open hemicolectomy emergently on 03/09/19, no further bleeding since Patient aware of low Hgb, patient continues to decline blood transfusion secondary to christianity beliefs No BM/ flatus since surgery Diet as tolerated, poor appetite though still no N/v Perioperative care Continue ABX for now, with clostridium in anaerobic Cx would request ID input e. coli sensitivity reviewed clostridium in anaerobic Cx incentive spirometry Q1 hour while awake Appreciate recs from Surgery, ICU, and GI Agree with medications to help raise blood counts as patient refusing any blood transfusion Clinically depressed secondary to severe illness, recommended patient stay positive, out of bed to chair, open shades in day, sleep at night. His sleep wake cycle is disrupted
--- NOTE | 2019-03-11 23:05 | PRG ---
DATE OF SERVICE: 03/11/2019 SUBJECTIVE: The patient is currently in the critical care unit, he is postop day 1, status post exploratory laparotomy with right colectomy and primary anastomosis. The patient is a [employer], and he has had significant acute blood loss anemia. complains of some nausea, but otherwise is doing well. OBJECTIVE: VITAL SIGNS: Blood pressure is stable with systolic blood pressures maintaining above 120, but presently only mildly tachycardic with heart rate 90s to low 100. The patient is afebrile. GENERAL: The patient is resting comfortably in bed. He is awake, alert, conversant, and only has a complaint of some nausea. The patient has just received some Zofran. ABDOMEN: Soft, is minimally tender without peritoneal signs. He has hypoactive bowel sounds. ASSESSMENT: 1. Status post laparotomy with right colectomy and primary anastomosis, postop day 1. 2. Stable blood-loss anemia. 3. Electrolyte abnormalities. PLAN: Once electrolytes were replaced by the day team, we will continue supportive care. Repeat his labs in the morning. Encourage out of bed and mobility. We will await return of bowel function. Job ID: [id number]
[2019-03-12] MEDS: Morphine 4 MG/ML VIAL SLOW IVP PRN ×2 (01:45→07:23)
[2019-03-12] MEDS: Promethazine HCl 25 MG/ML VIAL IM PRN (01:46)
[2019-03-12] MEDS: Potassium Chloride 20 MEQ, Admixture Fee 1 EACH in Dextrose 5%-Lactated Ringers 1,000 ML IV SCH ×2 (02:53→21:20)
[2019-03-12] MEDS: Piperacillin/Tazobactam 3.375 GM in Sodium Chloride 0.9% 100 ML IVPB SCH ×3 (04:16→15:30)
[2019-03-12 04:40] LABS: Hemoglobin 4.6 g/dL (14.0-18.0); Mean Corpuscular HGB CONC 29.5 g/dL (32.0-36.0); Mean Corpuscular Hemoglobin 26.1 pg (27.0-31.0); Mean Corpuscular Volume 88.3 fL (78.0-98.0); Platelet Count 471 thou/uL (130-400); Red Blood Cell (RBC) Count 1.76 mill/uL (4.70-6.10); White Blood Cell (WBC) Count 23.1 thou/uL (4.8-10.8)
[2019-03-12 05:00] LABS: Band 8 % (5-11); Elliptocytes SLIGHT = 2-5 cells (100X) (0-1/hpf); Eosinophils 1 % (0-10); Hypochromia SLIGHT = 6-15 cells (100X) (0-5/hpf); Lymphocytes 9 % (21-51); MDiff Complete? YES; Metamyelocyte 2 % (0-0); Monocytes 11 % (0-10); Myelocyte 1 % (0-0); Neutrophil 68 % (42-75); Platelet Morphology Comment Appears Increased
[2019-03-12 05:20] LABS: Anion Gap 12 mmol/L (10-20); BUN (Urea Nitrogen) 5 mg/dL (8.4-25.7); Calc. Creatinine Clearance 162 mL/min (70-130); Calcium 9.2 mg/dL (7.8-10.44); Carbon Dioxide 31 mmol/L (22-29); Chloride 103 mmol/L (98-107); Estimated GFR-MDRD Greater than 90; Glucose 116 mg/dL (70-105); Phosphorus 2.6 mg/dL (2.3-4.7); Potassium 3.6 mmol/L (3.5-5.1); Sodium 142 mmol/L (136-145)
[2019-03-12] MEDS ORDERED: Potassium Phosphate 15 MMOL in Sodium Chloride 0.9% 250 ML 250 ML IVPB SCH (07:15)
[2019-03-12] MEDS: Pantoprazole 40 MG VIAL IVP SCH (08:40)
[2019-03-12] MEDS: Folic Acid 1 MG TAB PO SCH (08:40)
[2019-03-12] MEDS: Haloperidol Lactate 5 MG/ML VIAL IM PRN ×4 (10:48→23:49)
[2019-03-12] MEDS: Furosemide 20 MG/2 ML VIAL SLOW IVP SCH ×2 (11:58→23:36)
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
[2019-03-12] MEDS: EPOETIN ALFA-EPBX (ESRD) 10,000 UNIT/ML VIAL SC SCH (14:52)
--- NOTE | 2019-03-12 16:20 | PRG ---
DATE OF SERVICE: 03/12/2019 SUBJECTIVE: Mr. Manuel is a 54-year-old man. The patient is postoperative day #5, status post laparoscopic repair of colon perforation with partial cecectomy. He is also postoperative day #2, status post exploratory laparotomy and right colectomy with primary anastomosis. The patient is a Jewish, who has a preoperative acute blood loss anemia secondary to gastrointestinal hemorrhage. He is awake and alert this morning, although intermittently confused. Urinary output has been adequate for this patient's age and weight. He has not had any bowel movement since surgery. OBJECTIVE: VITAL SIGNS: Today includes blood pressure 138/89, pulse is 134, respiratory rate is 14, temperature is 98.5 degrees Fahrenheit, and oxygen saturation is 97% on 2 L by nasal cannula oxygen. HEART: Reveals regular rate with sinus tachycardia. No murmurs or gallops auscultated. LUNGS: Clear to auscultation bilaterally. Breathing, regular and unlabored. ABDOMEN: Soft, moderately distended with incisional tenderness to palpation. He has no rebound tenderness present. NEUROLOGIC: Reveals no focal deficits present. LABORATORY FINDINGS: Today include a CBC with 23,100 white blood cells, hemoglobin and hematocrit 4.6 and 15.5 respectively. Platelet count is 471,000. Metabolic profile; sodium 142, potassium 3.6, chloride is 103, bicarb 31, BUN is 5, creatinine 0.73, glucose is 116, magnesium 2.0, and phosphorus 2.6. IMPRESSION: 1. Postoperative day #2, status post exploratory laparotomy with right hemicolectomy and primary anastomosis. 2. Acute blood loss anemia. 3. Acute metabolic encephalopathy secondary to acute blood loss anemia. 4. Acute hypophosphatemia. 5. Acute hypokalemia. PLAN: 1. Correct abnormal electrolytes. 2. We will mobilize the patient to neuro chair today and encourage pulmonary toilet. 3. The patient is unable to ambulate due to significant symptomatic acute blood loss anemia. 4. We will initiate Physical Therapy to increase activity as tolerated. 5. Above findings and plan discussed with the patient, who indicates understanding of the information given. We will ask PM and R to evaluate the patient for possible inpatient rehabilitation post discharge. Job ID: [id number]
[2019-03-12] MEDS: MEROPENEM 1 GM/50 ML 1 GM in Premix Bag 1 BAG IVPB SCH (21:42)
[2019-03-13] MEDS ORDERED: Lorazepam 2 MG/ML VIAL SLOW IVP SCH ×2 (00:15→04:45)
--- NOTE | 2019-03-13 00:41 | CON ---
DATE OF CONSULTATION: 03/12/2019 REASON FOR CONSULTATION: Peritonitis. HISTORY OF PRESENT ILLNESS: A 54-year-old, who has a history of no significant prior medical issues, who was initially brought in because of syncopal event associated with melena and bright red blood per rectum. He had a full GI workup, which identified an arteriovenous malformations and underwent a colonoscopy on March 05, which were treated with argon plasma coagulation. The patient developed peritonitis subsequently and had a laparoscopic repair of colon perforation with partial cecectomy, laparoscopic appendectomy, and drainage of intraabdominal abscess, placement of postoperative drain. The operative report was reviewed and there was evidence of diffuse peritonitis with bile-stained fluid in the pelvis and there was one obvious area of perforation with enteric fluid leaking from this in the anterior colon, which measured 2 to 3 mm in diameter. The pathology from the surgical specimen included the appendix, which showed purulent acute serositis and unremarkable appendix lumen. Microbiology included E coli, Clostridium, and Bacteroides as expected. E. coli has an ESBL phenotype. Currently, the patient is delirious. He is a Adventism and has not received any blood transfusions. He is unable to provide with any review of systems. Following the initial procedure, which was laparoscopic, the patient developed acute recurrence of bleeding and had to have an emergency exploratory laparotomy with right colon resection. Pathology from that is pending. Past medical history is otherwise negative before all these interventions. The patient is a Adventism. No alcoholic beverage use or smoking. PAST MEDICAL HISTORY: Otherwise is negative. PAST SURGICAL HISTORY: Includes dental surgery and skin cancer removal. FAMILY HISTORY: Noncontributory. ALLERGIES: NONE. CURRENT MEDICATIONS: 1. Zosyn. 2. Epoetin. 3. Other p.r.n. medications. PHYSICAL EXAMINATION: VITAL SIGNS: T-max 99.2, blood pressure 85/62 to 110/75, pulse 137, respiratory rate 20, O2 saturation 100. SKIN: Shows midline incision for the laparotomy, triple-lumen in the right subclavian location, and an indwelling Diaz catheter. I's and O's were positive and today there were 900 negative, urine output 3000 past 24 hours. No lymphadenopathy. HEENT: Ocular movements are conjugate. Somewhat pale conjunctivae. Oral cavity moist. LUNGS: With symmetric air entry. S1 and S2. Regular rate. ABDOMEN: Soft. Bowel sounds are not audible at this time. Tenderness is elicited. No guarding. No edema. Pulses 1+ in dorsalis pedis. EXTREMITIES: Able to move all extremities. Does not follow commands. Unable to interact verbally with examiner. LABORATORY DATA: White cell count started at 10 and now is up to 23,000 and bands started at 15 and now are 8, hemoglobin is down from 8.5 to 4.6. Sodium 142, creatinine stable at 0.73. Albumin 2.9. Urinalysis normal. Microbiology has been discussed above. C. diff in stool is negative. ASSESSMENT: 1. Congregation with no significant past medical history and arteriovenous malformation associated colonic bleeds, which led to fulguration and perforation with peritonitis, initial laparoscopic repair and then recrudescence of bleeding, which led to hemicolectomy. The patient has the usual pathogens associated, but one of the organisms is an Extended-Spectrum Beta-Lactamase Escherichia coli. Those usually yield a better outcome when treated with carbapenems, so I will go ahead and switch him to Merrem instead of the current Zosyn. The patient is at risk for developing postop intraabdominal abscesses. Duration of therapy will depend on stabilization of his inflammatory process and adequate source control and it is usually short-lived once source control is achieved. He is at risk for development of complications such as line colonization including Nakia fungemia and so on. Job ID: [id number]
--- NOTE | 2019-03-13 01:12 | PRG ---
DATE OF SERVICE: 03/12/2019 SUBJECTIVE: The patient is currently on the critical care unit. He is status post laparoscopic repair of colon perforation with partial cecectomy. He is postop day #5 from that. He is also postop day #2 after an exploratory laparotomy and right colectomy with primary anastomosis. The patient is a Faith and has had severe blood loss anemia especially during his entire hospital stay. Today, he did have a slight upward trend from yesterday's. The patient reportedly had some confusion today, but tonight nurse reports that he is settling down, and during my visit, he was awake, interactive, but definitely had some drowsiness to him, but he was appropriate. OBJECTIVE: VITAL SIGNS: Stable. Heart rate, maintains his tachycardia, and he is afebrile. LUNGS: Clear to auscultation bilaterally. HEART: Tachycardic, but with a regular rhythm. ABDOMEN: Soft. Appears to be somewhat distended tonight compared to when I saw him last night. He reports that he is passing some gas. Abdominal sounds are hypoactive. EXTREMITIES: Neurovascularly intact x4. ASSESSMENT: 1. Acute blood loss anemia. 2. Status post exploratory laparotomy with hemicolectomy and primary anastomosis, postop day #2. 3. Acute metabolic encephalopathy secondary to acute blood loss anemia. 4. Possibly developing postoperative ileus. PLAN: Plan will be to re-evaluate his electrolytes in the morning. He had electrolyte replacement done today with the day team. Continue efforts to mobilize the patient as tolerated. Continue his clear liquid diet as tolerated, and we will reassess him again in the morning or sooner as needed. Job ID: [id number]
[2019-03-13] MEDS: Morphine 4 MG/ML VIAL SLOW IVP PRN (02:46)
--- NOTE | 2019-03-13 02:48 | OP ---
DATE OF PROCEDURE: 03/09/2019 PREOPERATIVE DIAGNOSIS: Recurrent gastrointestinal bleed in a patient who is severely anemic and is a Worship. POSTOPERATIVE DIAGNOSIS: Recurrent gastrointestinal bleed in a patient who is severely anemic and is a Worship. TEST PERFORMED: Open right hemicolectomy. ANESTHESIA: General endotracheal. INDICATIONS: Patient is a 54-year-old white male, Worship patient. He previously had a massive lower GI bleed which was found to be related to arteriovenous malformations in the cecum. The bleeding was initially controlled endoscopically using argon beam. He had subsequently developed a cecal perforation and this was repaired surgically with a laparoscopic partial cecectomy. His peritonitis seemed to be resolving appropriately when today he developed a recurrent lower GI bleed with several bloody bowel movements and another syncopal episode and progressive anemia. After discussing options with his wood shop teacher, Dr. Pacheco, as well as the patient, I recommend an open right hemicolectomy as this is likely to be the most expeditious way of controlling the bleeding without allowing him to continue to bleed further while awaiting a bowel prep. He has taken to the operative room at this time for the purpose. He had a midline catheter placed in his left arm just prior to this procedure. DESCRIPTION OF OPERATION: Informed consent was obtained. Patient was taken to the operating room, where general endotracheal anesthesia obtained and patient was placed in supine position. Abdomen was prepped with ChloraPrep and draped in sterile fashion. Midline abdominal incision was created and dissection was carried through skin and subcutaneous tissue and through the linea alba into the midline. The peritoneal cavity was entered. A large Reji wound retractor was then placed to protect the wound edges and optimize exposure. The abdominal cavity was inspected. There was no further evidence of peritonitis. All of the inflammatory and infectious concerns have resolved. The staple line of the cecum was intact and without evidence of further contamination or even inflammatory change. The right colon was mobilized by incising the white line of Toldt. The hepatic flexure was taken down with electrocautery. The terminal ileum was mobilized as well. I selected a site of the distal ileum as well as the proximal transverse colon and at this location, I created a double-stapled anastomosis with the BELINDA 75 stapler. The intervening mesentery was taken down using the LigaSure Max device. The colon was then passed off the field. The anastomosis was buttressed with several interrupted sutures of 3-0 silk. The mesenteric defect was closed with a running suture of 3-0 Vicryl. The abdominal cavity was then irrigated. All irrigant was aspirated. There has been essentially no blood loss during the course of the operation (less than 20 mL). Two sheets of Seprafilm were placed, the Reji wound retractor was removed, gowns and gloves were changed. Abdominal wall was cleansed with saline. The fascia was then closed with running suture of looped #1 PDS. The abdominal wound was then irrigated again with almost a liter of saline. The wound was then closed with skin ese. Dry gauze dress was placed externally. There were no complications. Patient remained essentially stable during the operation, was taken to recovery room in stable condition. Job ID: [id number]
[2019-03-13] MEDS: Haloperidol Lactate 5 MG/ML VIAL IM PRN ×3 (04:29→12:24)
[2019-03-13 05:06] LABS: Hemoglobin 4.4 g/dL (14.0-18.0); Mean Corpuscular HGB CONC 30.3 g/dL (32.0-36.0); Mean Corpuscular Hemoglobin 26.9 pg (27.0-31.0); Mean Corpuscular Volume 88.7 fL (78.0-98.0); Mean Platelet Volume 7.8 fL (7.4-10.4); Platelet Count 490 thou/uL (130-400); RBC Distribution Width 24.5 % (11.5-14.5); Red Blood Cell (RBC) Count 1.63 mill/uL (4.70-6.10); White Blood Cell (WBC) Count 23.4 thou/uL (4.8-10.8)
[2019-03-13] MEDS: MEROPENEM 1 GM/50 ML 1 GM in Premix Bag 1 BAG IVPB SCH ×3 (05:53→22:14)
[2019-03-13] MEDS: Pantoprazole 40 MG VIAL IVP SCH (08:07)
[2019-03-13] MEDS: Folic Acid 1 MG TAB PO SCH (09:01)
[2019-03-13] MEDS: D5 1/2 NS w/20 mEq KCL 1,000 ML IV SCH (13:36)
--- NOTE | 2019-03-13 14:18 | CON ---
DATE OF CONSULTATION: 03/13/2019 SERVICE: Pulmonary Medicine REASON FOR CONSULTATION: ICU patient. HISTORY OF PRESENT ILLNESS: The patient is an encephalopathic 54-year-old white male. His past medical history is significant for being a Druze. As such, he is unwilling to accept any blood products. Prior to any type of operation or procedures, we asked whether or not he would be okay with blood products if he was facing certain . Under those circumstances, he would not want blood products understanding that he would then pass away. Either way, he had an abrupt onset of rectal bleeding at his gnosticist. He came into the hospital. He ended up undergoing a colonoscopy. Argon laser took care of the bleeding in that moment. That being said, it appears that he had some sort of a perforation of the gut. He underwent a laparotomy and this was clipped. The clipping procedure seemed to work. He is put on some broad-spectrum antibiotics. He was then brought to the ICU. He started having more bleeding per rectum. He had to undergo a second laparotomy for a right-sided hemicolectomy. Postoperatively, he developed severe encephalopathy roughly 24 hours ago. He does drink alcohol, but it is not clear as to how much he drinks. He is writhing in bed and is not oriented. He is not able to provide any significant historical elements to this history of present illness. PAST MEDICAL HISTORY: 1. Anxiety disorder. 2. Major depressive disorder. PAST SURGICAL HISTORY: 1. Dental surgery. 2. Excision of skin cancer from the nose. 3. Laparotomy with staple of perforated cecum. 4. Laparotomy with right-sided hemicolectomy. SOCIAL HISTORY: He does drink some alcohol. He denies any illicit drugs or tobacco products. FAMILY HISTORY: Noncontributory. ALLERGIES: NO KNOWN DRUG ALLERGIES. MEDICATIONS: List of his inpatient medications was reviewed. Multiple updates were made at this time. REVIEW OF SYSTEMS: This cannot be obtained as the patient is completely encephalopathic. PHYSICAL EXAMINATION: VITAL SIGNS: Afebrile. Pulse 126, blood pressure 127/74, respirations 15, saturations 97%, currently on 2 L nasal cannula. GENERAL: The patient is awake and alert, in no apparent distress. LUNGS: Decent air entry. Rhonchi are present. No prolonged expiratory phase or wheezing is appreciated. HEART: Tachycardic. Regular. ABDOMEN: Soft. It is distended. Bowel sounds are present. He grimaces with the palpation. : No Diaz. NEUROLOGIC: Grossly nonfocal. He is moving all 4 extremities both upper and lower with purposeful activity. That being said, he is not following any commands simple or otherwise. He demonstrates excellent strength and spontaneously opens up his eyes. His pupils are equal, round, and reactive. His cranial nerves are otherwise intact. LABORATORY DATA: WBC 23.4, hemoglobin 4.4 and stable, platelets 490,000 and gently up-trending. INR 1.1. Basic metabolic profile is unremarkable, except for potassium of 3.2. Magnesium and phosphorous fall within the normal limits. Liver function studies from 1 day ago were within normal limits. Urinalysis is unremarkable. Microbiology: C. diff antigen and toxin are negative. Abdominal culture broth is growing E. coli, Clostridium, and Bacteroides, which seems to be sensitive to Zosyn and meropenem, but fairly resistant to the cephalosporins and other beta- lactam. IMAGING STUDIES: CT of the abdomen and pelvis previously showed free air in the belly. Pneumatosis of the cecal wall and possible tiny extraluminal gas pockets were also present in the cecum. No free fluid was otherwise appreciated. ASSESSMENT: 1. Metabolic encephalopathy. 2. Acute blood loss anemia (refusing transfusions secondary to mandaen conviction). 3. Gross peritonitis secondary to perforated viscus. 4. Bleeding arteriovenous malformation, status post right hemicolectomy, postoperative day 4. DISCUSSION AND PLAN: The patient is doing fine from Respiratory standpoint, but he has a severe encephalopathy. He is not clear whether or not there is a metabolic process or other. I believe his blood does not have enough oxygen carrying capacity to satisfy his MATERIAL LISTER oxygen requirements. We will get an ammonia level and a TSH tomorrow morning. I will put him on half-normal saline. He appears dry to me, so I will interrupt our Lasix therapy. Haldol has not been helping his encephalopathy, so it will be interrupted and we will try Precedex out. Potassium will be replaced today. Pulmonary/ Critical Care will follow very closely. The patient will need to remain in the ICU for the time being. The white blood cell count is probably a leukemoid reaction secondary to the patient's severe anemia. I do not see a need to change his antibiotics at this time given our good culture results that we have. 70 minutes have been devoted to this patient in various activities. I personally reviewed all imaging studies and laboratory data noted within this document. For fifty percent of this time, I was interacting with the patient at the bedside or coordinating care with the care team. For the remainder of the time I was immediately available to the patient in the hospital unit. Job ID: [id number] [id number]
[2019-03-13] MEDS ORDERED: Lorazepam 2 MG/ML VIAL ONE (15:56)
--- NOTE | 2019-03-13 15:58 | PDOC.HOSPP ---
- Subjective Subjective: Seen and examined. Remains encephalopathic since yesterday. Haldol has not significantly helped, agree with D/c. Not taking in much oral intake, agree with IV fluids. Requiring restraints for his safety, he removed his own central line yesterday. - Objective Vital Signs & Weight: Vital Signs (12 hours) Temp Pulse Ox 03/13/19 11:00 98.0 F 03/13/19 08:00 100 03/13/19 07:00 98.5 F 03/13/19 04:00 98.0 F Weight Admit Weight 202 lb Weight 206 lb 2.115 oz Most Recent Monitor Data Heart Rate from ECG 117 NIBP 97/68 NIBP BP-Mean 77 Respiration from ECG 23 SpO2 96 I&O: 03/12/19 03/13/19 03/14/19 06:59 06:59 06:59 Intake Total 2258 2285 547 Output Total 0125 3295 275 Balance -917 -1010 272 Result Diagrams: 03/13/19 04:40 03/12/19 04:02 ROS - Medication Medications: Active Medications Generic Name Dose Route Start Last Admin Trade Name Freq PRN Reason Stop Dose Admin Epoetin Waqas-epbx 10,000 unit 03/10/19 15:00 03/12/19 14:52 Retacrit SC 10,000 unit Q48H KRISTIAN Administration Potassium Chloride 20 meq/ 1,010 mls @ 175 mls/hr 03/10/19 00:15 03/12/19 21: 20 Miscellaneous Medication 1 IV 1,010 mls each/ Dextrose/Lactated Ringer INF KRISTIAN Administration 's Meropenem 1 gm/ Device 50 mls @ 100 mls/hr 03/12/19 22:00 03/13/19 13:02 IVPB 50 mls Q8HR KRISTIAN Administration Potassium Chloride/Dextrose/Sod Cl 1,000 mls @ 100 mls/hr 03/13/19 13:15 07/20 13:36 D5 1/2 Ns W/20 Meq Kcl IV 1,000 mls .Q10H KRISTIAN Administration Dexmedetomidine HCl 200 mcg/ 50 mls @ 0 mls/hr 03/13/19 13:15 03/13/19 13:33 Sodium Chloride IVPB 50 mls INF KRISTIAN Administration Protocol Per Protocol Ondansetron HCl 4 mg 03/07/19 12:25 03/11/19 19:55 Zofran IVP 4 mg Q6H PRN Administration Nausea/Vomiting Pantoprazole Sodium 40 mg 03/10/19 09:00 03/13/19 08:07 Protonix IVP 40 mg DAILY KRISTIAN Administration Sodium Chloride 10 ml 03/07/19 12:25 03/09/19 15:25 Flush - Normal Saline IVF 10 ml PRN PRN Administration Saline Flush - Exam ill appearing. negative: awake alert Eye: PERRL, anicteric sclera ENT: normocephalic atraumatic, dry oral mucosa Neck: supple Heart: RRR, no murmur, no gallops, no rubs Respiratory: CTAB, no wheezes, no rales, no ronchi Gastrointestinal: soft, non-tender, non-distended, normal bowel sounds Extremities: no edema Skin: no rashes Neurological: CN's grossly intact, no weakness, no focal deficits Musculoskeletal: no muscle wasting Psychiatric: not oriented. negative: A&O x 3 Hosp A/P (1) Anemia due to acute blood loss Code(s): D62 - ACUTE POSTHEMORRHAGIC ANEMIA Status: Acute (2) AV malformation of GI tract Code(s): K55.20 - ANGIODYSPLASIA OF COLON WITHOUT HEMORRHAGE Status: Acute (3) GI bleed Code(s): K92.2 - GASTROINTESTINAL HEMORRHAGE, UNSPECIFIED Status: Acute (4) Leukocytosis (leucocytosis) Code(s): D72.829 - ELEVATED WHITE BLOOD CELL COUNT, UNSPECIFIED Status: Acute (5) Orthostatic hypotension Code(s): I95.1 - ORTHOSTATIC HYPOTENSION Status: Acute (6) S/P laparoscopic appendectomy Status: Acute (7) Syncope Code(s): R55 - SYNCOPE AND COLLAPSE Status: Acute (8) Anxiety and depression Code(s): F41.9 - ANXIETY DISORDER, UNSPECIFIED; F32.9 - MAJOR DEPRESSIVE DISORDER, SINGLE EPISODE, UNSPECIFIED Status: Chronic (9) Obesity (BMI 30.0-34.9) Code(s): E66.9 - OBESITY, UNSPECIFIED Status: Chronic (10) Patient is Yazdanism Code(s): Z78.9 - OTHER SPECIFIED HEALTH STATUS Status: Chronic (11) Cecum perforation Code(s): K35.32 - ACUTE APPENDICITIS WITH PERF AND LOC PERITONITIS, W/O ABSCS Status: Suspected (12) Delirium due to another medical condition, acute, hyperactive Code(s): F05 - DELIRIUM DUE TO KNOWN PHYSIOLOGICAL CONDITION Status: Acute (13) Altered mental status Code(s): R41.82 - ALTERED MENTAL STATUS, UNSPECIFIED Status: Acute - Plan Plan: ICU Restraints for patients safety, he has already removed his central line D/c haldol as it has not helped. Starting Precedex Metabolic work up benign recommended open shades in day, sleep at night. His sleep wake cycle is disrupted which is contributing to delirium S/p open hemicolectomy emergently on 03/09/19, no further bleeding since Patient aware of low Hgb, patient continues to decline blood transfusion secondary to denominational beliefs Hgb slowly trending up Diet as tolerated, poor appetite though Continue ABX for now e. coli sensitivity reviewed clostridium in anaerobic Cx incentive spirometry Q1 hour while awake Appreciate recs from Surgery, ICU, and GI Agree with medications to help raise blood counts as patient refusing any blood transfusion
[2019-03-13 16:08] LABS: Hemoglobin 4.5 g/dL (14.0-18.0); Mean Corpuscular HGB CONC 29.6 g/dL (32.0-36.0); Mean Corpuscular Hemoglobin 26.8 pg (27.0-31.0); Mean Corpuscular Volume 90.7 fL (78.0-98.0); Mean Platelet Volume 7.8 fL (7.4-10.4); Platelet Count 477 thou/uL (130-400); RBC Distribution Width 25.2 % (11.5-14.5); Red Blood Cell (RBC) Count 1.67 mill/uL (4.70-6.10); White Blood Cell (WBC) Count 21.9 thou/uL (4.8-10.8)
--- NOTE | 2019-03-13 16:12 | PRG ---
DATE OF SERVICE: 03/13/2019 SUBJECTIVE: Mr. Manuel remains in the hospital in the intensive care unit. He is postoperative day #4 from open right hemicolectomy. He is postoperative day #6 from laparoscopic repair of cecal perforation. He is a Adventism. He has refused all blood products. He had extensive bleeding from arteriovenous malformation within the cecum. His hemoglobin dropped down to a low of 3.9, the morning after his second surgery. It has slowly risen since then. Though it was up to 4.6 yesterday, hemoglobin is 4.4 this morning. Although, he was relatively hemodynamically stable, he has developed 2 worrisome trends. He has developed progressive tachycardia over the prior couple of days. When I last saw him on Wednesday, his heart rate was generally in the 90s or low 100s. Over the past day or two, his heart rate has been in the 120s-130s. His second worrisome trend has to do with his encephalopathy. When I visit with him today, he is unable to make eye contact or answer any questions. He is writhing in bed and speaking intermittently incoherently. This apparently began yesterday and has progressed. He has been on Haldol, but this has not provided any stabilization or relief. He is unable to contribute any history currently. OBJECTIVE: VITAL SIGNS: On examination, he is afebrile. He has never been febrile in his postoperative period. Pulse currently is 117, blood pressure is 124/64. Urine output yesterday was 3300 mL. He was being diuresed with Lasix during that time. He has apparently had no bowel movement since his second surgery. He had multiple bloody bowel movements prior to the surgery. LUNGS: Clear to auscultation anteriorly. CARDIAC: Regular rhythm, but tachycardic. ABDOMEN: Appears to be soft. Incision is healing nicely without evidence of infection. Bowel sounds are present, but are hypoactive. There is no focal area of tenderness that I can discern, but his mental status and his movement is difficult to be certain. EXTREMITIES: Unremarkable. LABORATORY DATA: As mentioned, his hemoglobin today is 4.4, white blood cell count is 23.4, which is stable from yesterday, and platelet count is 490. Chemistry panel reveals normal electrolytes, except that his carbon dioxide is a little elevated at 31. BUN is 5, creatinine is 0.7. Calcium, phosphorus, and magnesium were all normal. IMAGING STUDIES: He has had no recent imaging studies or chest x-rays. ASSESSMENT: The patient remains severely anemic. He has no evidence of further bleeding since his right hemicolectomy. I am not certain if his encephalopathy is related to his severe anemia or some other etiology. I have consulted Dr. Paez of Critical Care Medicine to help me manage this patient. He remains on meropenem currently. I am uncertain that he has any significant infectious problem. He did have peritonitis with E. coli and anaerobes isolated. It is possible that he has an anastomotic leak following his surgery and perhaps his severe anemia that has kept him from healing appropriately. May consider a CT scan depending upon his course. At some point, we will need to consider nutrition. TPN is a possibility or could consider Dobbhoff placement, although currently he appears to be too agitated to likely leave this in place. Job ID: [id number]
[2019-03-13 16:25] LABS: Anisocytosis MODERATE=16-30 cells (100X) (0-5/hpf); Band 3 % (5-11); Eosinophils 1 % (0-10); Hypochromia SLIGHT = 6-15 cells (100X) (0-5/hpf); Lymphocytes 8 % (21-51); MDiff Complete? YES; Monocytes 4 % (0-10); Neutrophil 83 % (42-75); Nucleated RBC 2 % (0); Ovalocytes SLIGHT = 2-5 cells (100X) (0-1/hpf); Platelet Morphology Comment Appears Increased; Polychromasia MODERATE = 3-4 cells (100X) (0-2/hpf); Reactive Lymphocytes 1 % (0-10)
--- NOTE | 2019-03-13 19:04 | PRG ---
DATE OF SERVICE: 03/13/2019 REASON FOR CONSULTATION: Hematochezia. SUBJECTIVE: Over the weekend, the patient has an exhibited global encephalopathy with altered mental status and unable to react to verbal stimuli. He will react to noxious stimuli, but has otherwise been in this condition throughout the entire day. Later on today, he exhibited the expulsion of blood clots through the rectum. There were consider maroon, but possibly bright red in nature concerning for recurrent GI bleed. Dr. Ghosh was at bedside with a rectal exam conferring the presence of darker colored clot. Repeat hemoglobin and hematocrit at that time were stable when compared to previous. Otherwise per nursing staff other than his agitated state, requiring minimal amounts of Precedex to avoid pulling lines. There has been no evidence of vomiting, fever, hematemesis, or melena. OBJECTIVE: VITAL SIGNS: Temperature 98, pulse 108, blood pressure 108/79, respiratory rate 27, and saturating 92% on 2 L nasal cannula. GENERAL: The patient was lying in bed with no observed distress, but increased agitation. The patient is not alert and oriented. CARDIOVASCULAR: Tachycardic rate, but regular rhythm. RESPIRATORY: Clear to auscultation bilaterally. ABDOMEN: Hypoactive bowel sounds. Soft and nondistended. No withdrawal or grimacing with palpation to the abdomen. EXTREMITIES: No cyanosis, clubbing, or edema. LABORATORY DATA: CBC with a white blood cell count of 21.9, hemoglobin 4.5, hematocrit 15.2, and platelets 477. IMAGING DATA: No current GI imaging is available for review. ASSESSMENT AND PLAN: The patient is a 54-year-old male with past medical history of osteoarthritis, gastroesophageal reflux disease, depression, skin cancer of the nares status post excision and hearing loss, presenting with hematochezia secondary to cecal arteriovenous malformations, status post argon plasma coagulation, now complicated by both colonic perforation and rebleeding, requiring right hemicolectomy and further complicated by global encephalopathy. Hematochezia: The patient's hospital course thus far has been fairly complicated including the colonoscopy on March 05, 2019 showing multiple arteriovenous malformations and were intervened upon with argon plasma coagulation. This was complicated by colonic perforation that was then corrected with surgical intervention. However, in the postoperative period, he exhibited increased hematochezia and hypotension once again. It prompted a right hemicolectomy for more definitive treatment for his hematochezia and removal of the arteriovenous malformations. Since a surgery, his hemoglobin and hematocrit have remained stable with no further episodes of GI bleeding until today when he had began to pass blood clots. However, this was the first bowel movement he has had since his right hemicolectomy and could be the expulsion of old blood related to the surgery and his prior bleed rather than a new actively bleeding source. At this time, the encephalopathy exhibited could be due to decreased effective blood volume and lack of oxygen to the brain, although if he is bleeding, it could contribute to hyperammonemia, which could also create this kind of picture. Given his hindu status and reluctance to receive blood products, transfusion is not an option. If he has a further episode of hematochezia with drop in his hemoglobin and hematocrit, it is unclear which modality would be effective in identifying the recurrent bleed. RECOMMENDATIONS: 1. We would continue to trend his hemoglobin and hematocrit, attempt to minimize lab draws. 2. Continue to monitor clinically for signs of active GI bleeding. 3. If the patient continues to have a decrease in his hemoglobin and hematocrit, one could consider either a tagged red cell scan or repeat unprepped colonoscopy (for expediency sake) or possible identification of GI bleeding source, although the utility of an unprepped colonoscopy is debatable. 4. Continue broad-spectrum antibiotics. We will continue to follow. At this time, the patient's prognosis is grave with the inability to transfuse blood and may ultimately result in his . Please call with any questions. Job ID: [id number]
[2019-03-14] MEDS: D5 1/2 NS w/20 mEq KCL 1,000 ML IV SCH ×3 (00:22→21:04)
[2019-03-14] MEDS: Lorazepam 2 MG/ML VIAL SLOW IVP PRN ×8 (00:23→23:51)
[2019-03-14 03:47] LABS: Hemoglobin 4.4 g/dL (14.0-18.0); Mean Corpuscular HGB CONC 29.1 g/dL (32.0-36.0); Mean Corpuscular Hemoglobin 26.6 pg (27.0-31.0); Mean Corpuscular Volume 91.4 fL (78.0-98.0); Mean Platelet Volume 7.9 fL (7.4-10.4); Platelet Count 476 thou/uL (130-400); Red Blood Cell (RBC) Count 1.65 mill/uL (4.70-6.10); White Blood Cell (WBC) Count 17.6 thou/uL (4.8-10.8)
[2019-03-14 04:05] LABS: Anion Gap 12 mmol/L (10-20); BUN (Urea Nitrogen) 11 mg/dL (8.4-25.7); Calc. Creatinine Clearance 142 mL/min (70-130); Calcium 8.6 mg/dL (7.8-10.44); Carbon Dioxide 28 mmol/L (22-29); Chloride 106 mmol/L (98-107); Estimated GFR-MDRD Greater than 90; Glucose 113 mg/dL (70-105); Iron 22 ug/dL (65-175); Potassium 3.7 mmol/L (3.5-5.1); Sodium 142 mmol/L (136-145)
[2019-03-14] MEDS: MEROPENEM 1 GM/50 ML 1 GM in Premix Bag 1 BAG IVPB SCH ×3 (06:42→21:04)
[2019-03-14] MEDS ORDERED: Pantoprazole 40 MG VIAL IVP SCH ×2 (08:45→09:00)
[2019-03-14] MEDS ORDERED: Sodium Chloride 0.9% (PF) 10 ML VIAL FS SCH (09:00)
[2019-03-14] MEDS: Pantoprazole 40 MG VIAL IVP SCH (10:18)
--- NOTE | 2019-03-14 10:30 | PRG ---
DATE OF SERVICE: SERVICE: Pulmonary Medicine. INTERVAL HISTORY: The patient is actually doing quite well from a respiratory standpoint. His hemoglobin remained stable. He had a bloody bowel movement yesterday, but he has had a couple of more bowel movements that are increasingly clear. More old blood is showing up, and I am not seeing as much fresh blood. He cannot provide any additional elements of the history. He remains a little encephalopathic, but he is getting easier to control at this point. PHYSICAL EXAMINATION: VITAL SIGNS: Afebrile, pulse 71, blood pressure 96/71, respirations 19, saturation 100% on 3 L nasal cannula. GENERAL: The patient is awake and alert, in no apparent distress. LUNGS: Decent air entry. I do not appreciate any crackling. No prolonged expiratory phase or wheezing is appreciated. HEART: Normal rate. Regular. ABDOMEN: Soft, nontender, nondistended. Bowel sounds are positive. There is a midline incision which is clean, dry, and intact. NEUROLOGIC: Grossly nonfocal. He is following some very simple commands. He makes incomprehensible speech and is spontaneously moving upper and lower extremities. : Diaz catheter in place. LABORATORY DATA: WBC 17.6, hemoglobin 4.4 and stable, platelets 476,000. Potassium 3.7, iron 22, ammonia 21. TSH falls within the normal limits. Sodium and chloride are roughly stable. Bicarb is improved to 28. ASSESSMENT: 1. Metabolic encephalopathy, stable. 2. Acute blood loss anemia. 3. Gross peritonitis secondary to perforated viscus. 4. Bleeding AVM, status post right hemicolectomy, postop day 5. DISCUSSION AND PLAN: I will continue the IV fluids for the next 24 hours. We are going to give the patient a laboratory holiday tomorrow morning to stop bloodletting him. Because of his encephalopathy is persisting, I am going to put in a small bore feeding tube into his nose and stomach to initiate gentle tube feeds. I will clear those with Dr. Ghosh before initiating. Pulmonary/Critical Care will follow along. He will need to remain in the ICU. Job ID: [id number]
[2019-03-14] MEDS: Iron, Sodium Ferric Gluconate 250 MG in Sodium Chloride 0.9% 100 ML IVPB SCH ×2 (12:47→22:32)
--- NOTE | 2019-03-14 14:09 | PDOC.HOSPP ---
- Subjective Subjective: Seen and examined. Unfortunately not much clinical improvement. Brother at bedside, many questions asked - all answered in detail. Encephalopathic, follows no commands, does not know self. - Objective Vital Signs & Weight: Vital Signs (12 hours) Temp 03/14/19 12:00 98.1 F 03/14/19 07:00 98.1 F 03/14/19 04:00 99.0 F Weight Admit Weight 202 lb Weight 207 lb 10.807 oz Most Recent Monitor Data Heart Rate from ECG 104 NIBP 131/72 NIBP BP-Mean 91 Respiration from ECG 32 SpO2 90 I&O: 03/13/19 03/14/19 03/15/19 06:59 06:59 06:59 Intake Total 2285 2278.3 14.1 Output Total 3295 275 Balance -1010 2003.3 14.1 Result Diagrams: 03/14/19 03:35 03/14/19 03:35 ROS - Medication Medications: Active Medications Generic Name Dose Route Start Last Admin Trade Name Freq PRN Reason Stop Dose Admin Epoetin Waqas-epbx 10,000 unit 03/10/19 15:00 03/12/19 14:52 Retacrit SC 10,000 unit Q48H KRISTIAN Administration Meropenem 1 gm/ Device 50 mls @ 100 mls/hr 03/12/19 22:00 03/14/19 06:42 IVPB 50 mls Q8HR KRISTIAN Administration Potassium Chloride/Dextrose/Sod Cl 1,000 mls @ 100 mls/hr 03/13/19 13:15 12:46 D5 1/2 Ns W/20 Meq Kcl IV 1,000 mls .Q10H KRISTIAN Administration Ferric Sodium Gluconate 120 mls @ 60 mls/hr 03/14/19 11:30 03/14/19 12:47 Complex 250 mg/ Sodium IVPB 03/15/19 01:29 120 mls Chloride 1130,2330 KRISTIAN Administration Lorazepam 2 mg 03/13/19 16:18 03/14/19 13:30 Ativan SLOW IVP 2 mg Q2H PRN Administration Anxiety Ondansetron HCl 4 mg 03/07/19 12:25 03/11/19 19:55 Zofran IVP 4 mg Q6H PRN Administration Nausea/Vomiting Pantoprazole Sodium 40 mg 03/10/19 09:00 03/14/19 10:18 Protonix IVP 40 mg DAILY KRISTIAN Administration Sodium Chloride 10 ml 03/07/19 12:25 03/09/19 15:25 Flush - Normal Saline IVF 10 ml PRN PRN Administration Saline Flush - Exam ill appearing Eye: PERRL Eye - other findings: EOMI ENT: no oropharyngeal lesions Neck: supple Heart: RRR, no murmur, no gallops Respiratory: CTAB, no wheezes, no rales Gastrointestinal: soft, non-tender, non-distended, normal bowel sounds Extremities: no edema Neurological: CN's grossly intact Psychiatric: not oriented, somnolent. negative: A&O x 3, oriented to person, oriented to place, oriented to time Hosp A/P (1) Anemia due to acute blood loss Code(s): D62 - ACUTE POSTHEMORRHAGIC ANEMIA Status: Acute (2) AV malformation of GI tract Code(s): K55.20 - ANGIODYSPLASIA OF COLON WITHOUT HEMORRHAGE Status: Acute (3) GI bleed Code(s): K92.2 - GASTROINTESTINAL HEMORRHAGE, UNSPECIFIED Status: Acute (4) Leukocytosis (leucocytosis) Code(s): D72.829 - ELEVATED WHITE BLOOD CELL COUNT, UNSPECIFIED Status: Acute (5) Orthostatic hypotension Code(s): I95.1 - ORTHOSTATIC HYPOTENSION Status: Acute (6) S/P laparoscopic appendectomy Status: Acute (7) Syncope Code(s): R55 - SYNCOPE AND COLLAPSE Status: Acute (8) Anxiety and depression Code(s): F41.9 - ANXIETY DISORDER, UNSPECIFIED; F32.9 - MAJOR DEPRESSIVE DISORDER, SINGLE EPISODE, UNSPECIFIED Status: Chronic (9) Obesity (BMI 30.0-34.9) Code(s): E66.9 - OBESITY, UNSPECIFIED Status: Chronic (10) Patient is Mandaeism Code(s): Z78.9 - OTHER SPECIFIED HEALTH STATUS Status: Chronic (11) Cecum perforation Code(s): K35.32 - ACUTE APPENDICITIS WITH PERF AND LOC PERITONITIS, W/O ABSCS Status: Suspected (12) Delirium due to another medical condition, acute, hyperactive Code(s): F05 - DELIRIUM DUE TO KNOWN PHYSIOLOGICAL CONDITION Status: Acute (13) Altered mental status Code(s): R41.82 - ALTERED MENTAL STATUS, UNSPECIFIED Status: Acute - Plan Plan: ICU Restraints as needed for patients safety, he has already removed his central line, fall risk Medications to keep the patient calm Agree with NG for feedings Agree with holding labs for a day or 2, will not cell changer at this point. unless the patient develops massive bleeding would hold lab draws Metabolic work up benign Patient aware of low Hgb, patient/ family continues to decline blood transfusion secondary to mandaeism beliefs ABX for now e. coli sensitivity reviewed clostridium in anaerobic Cx incentive spirometry Q1 hour while awake Appreciate recs from Surgery, ICU, and GI Agree with medications to help raise blood counts as patient refusing any blood transfusion
[2019-03-14] MEDS ORDERED: Ziprasidone 20 MG VIAL IM SCH (15:45)
[2019-03-14] MEDS: EPOETIN ALFA-EPBX (ESRD) 10,000 UNIT/ML VIAL SC SCH (18:21)
[2019-03-14 21:06] LABS: Folate (Folic Acid) 12.6 ng/mL (7.0-31.4)
[2019-03-15] MEDS: MEROPENEM 1 GM/50 ML 1 GM in Premix Bag 1 BAG IVPB SCH ×3 (05:05→21:16)
[2019-03-15] MEDS: D5 1/2 NS w/20 mEq KCL 1,000 ML IV SCH ×2 (08:22→18:05)
[2019-03-15] MEDS: Pantoprazole 40 MG VIAL IVP SCH (08:27)
[2019-03-15 09:26] LABS: Hemoglobin 4.7 g/dL (14.0-18.0); Mean Corpuscular HGB CONC 29.3 g/dL (32.0-36.0); Mean Corpuscular Hemoglobin 27.3 pg (27.0-31.0); Mean Platelet Volume 7.9 fL (7.4-10.4); Platelet Count 448 thou/uL (130-400); RBC Distribution Width 28.7 % (11.5-14.5); Red Blood Cell (RBC) Count 1.73 mill/uL (4.70-6.10); White Blood Cell (WBC) Count 13.7 thou/uL (4.8-10.8)
[2019-03-15 09:33] LABS: Anion Gap 11 mmol/L (10-20); BUN (Urea Nitrogen) 7 mg/dL (8.4-25.7); Calc. Creatinine Clearance 145 mL/min (70-130); Calcium 8.2 mg/dL (7.8-10.44); Carbon Dioxide 26 mmol/L (22-29); Chloride 106 mmol/L (98-107); Estimated GFR-MDRD Greater than 90; Glucose 121 mg/dL (70-105); Potassium 3.4 mmol/L (3.5-5.1); Sodium 140 mmol/L (136-145)
[2019-03-15 09:49] LABS: Band 6 % (5-11); Eosinophils 2 % (0-10); Lymphocytes 11 % (21-51); MDiff Complete? YES; Metamyelocyte 2 % (0-0); Monocytes 7 % (0-10); Myelocyte 4 % (0-0); Neutrophil 67 % (42-75); Nucleated RBC 6 % (0); Platelet Morphology Comment Appears Increased; Polychromasia MARKED = >4 cells (100X) (0-2/hpf); Schistocytes SLIGHT = 2-5 cells (100X) (0-1/hpf); Tear Drops SLIGHT = 2-5 cells (100X) (0-1/hpf)
--- NOTE | 2019-03-15 13:33 | PDOC.HOSPP ---
- Subjective Subjective: Seen and examined. Clinically unchanged. Still confused, though follows simple commands. Still requiring restraints for his safety. No family at bedside this AM. - Objective Vital Signs & Weight: Vital Signs (12 hours) Temp Pulse Ox 03/15/19 12:00 98.1 F 03/15/19 11:40 99 03/15/19 08:01 97.6 F 03/15/19 07:40 100 03/15/19 07:08 100 03/15/19 03:00 98.0 F Weight Admit Weight 202 lb Weight 203 lb 7.787 oz Most Recent Monitor Data Heart Rate from ECG 79 NIBP 112/66 NIBP BP-Mean 81 Respiration from ECG 24 SpO2 99 I&O: 03/14/19 03/15/19 03/16/19 06:59 06:59 06:59 Intake Total 2278.3 2463.5 Output Total 275 Balance 2003.3 2463.5 Result Diagrams: 03/15/19 09:02 03/15/19 09:02 ROS - Medication Medications: Active Medications Generic Name Dose Route Start Last Admin Trade Name Freq PRN Reason Stop Dose Admin Albuterol/Ipratropium 3 ml 03/07/19 12:25 03/15/19 03:05 Duoneb NEB 3 ml Q4H PRN Administration Wheezing Epoetin Waqas-epbx 10,000 unit 03/10/19 15:00 03/14/19 18:21 Retacrit SC 10,000 unit Q48H KRISTIAN Administration Meropenem 1 gm/ Device 50 mls @ 100 mls/hr 03/12/19 22:00 03/15/19 05:05 IVPB 50 mls Q8HR KRISTIAN Administration Potassium Chloride/Dextrose/Sod Cl 1,000 mls @ 100 mls/hr 03/13/19 13:15 08:22 D5 1/2 Ns W/20 Meq Kcl IV 1,000 mls .Q10H KRISTIAN Administration Dexmedetomidine HCl 400 mcg/ 100 mls @ 0 mls/hr 03/14/19 10:30 03/15/19 10:24 Sodium Chloride IVPB 100 mls INF KRISTIAN Administration Protocol Per Protocol Lorazepam 2 mg 03/13/19 16:18 03/14/19 23:51 Ativan SLOW IVP 2 mg Q2H PRN Administration Anxiety Ondansetron HCl 4 mg 03/07/19 12:25 03/11/19 19:55 Zofran IVP 4 mg Q6H PRN Administration Nausea/Vomiting Pantoprazole Sodium 40 mg 03/10/19 09:00 03/15/19 08:27 Protonix IVP 40 mg DAILY KRISTIAN Administration Sodium Chloride 10 ml 03/07/19 12:25 03/09/19 15:25 Flush - Normal Saline IVF 10 ml PRN PRN Administration Saline Flush - Exam ill appearing Eye: PERRL Eye - other findings: EOMI ENT: moist mucosa Neck: supple, no JVD Heart: RRR, no murmur, no gallops Respiratory: CTAB, no wheezes, no ronchi, normal chest expansion Gastrointestinal: soft, non-tender, non-distended, no guarding, no rigidity Extremities: no edema Neurological: CN's grossly intact, normal sensation to touch, no weakness, no focal deficits Psychiatric: oriented to person, somnolent. negative: A&O x 3, oriented to place, oriented to time Hosp A/P (1) Anemia due to acute blood loss Code(s): D62 - ACUTE POSTHEMORRHAGIC ANEMIA Status: Acute (2) AV malformation of GI tract Code(s): K55.20 - ANGIODYSPLASIA OF COLON WITHOUT HEMORRHAGE Status: Acute (3) GI bleed Code(s): K92.2 - GASTROINTESTINAL HEMORRHAGE, UNSPECIFIED Status: Acute (4) Leukocytosis (leucocytosis) Code(s): D72.829 - ELEVATED WHITE BLOOD CELL COUNT, UNSPECIFIED Status: Acute (5) Orthostatic hypotension Code(s): I95.1 - ORTHOSTATIC HYPOTENSION Status: Acute (6) S/P laparoscopic appendectomy Status: Acute (7) Syncope Code(s): R55 - SYNCOPE AND COLLAPSE Status: Acute (8) Anxiety and depression Code(s): F41.9 - ANXIETY DISORDER, UNSPECIFIED; F32.9 - MAJOR DEPRESSIVE DISORDER, SINGLE EPISODE, UNSPECIFIED Status: Chronic (9) Obesity (BMI 30.0-34.9) Code(s): E66.9 - OBESITY, UNSPECIFIED Status: Chronic (10) Patient is Restoration Code(s): Z78.9 - OTHER SPECIFIED HEALTH STATUS Status: Chronic (11) Cecum perforation Code(s): K35.32 - ACUTE APPENDICITIS WITH PERF AND LOC PERITONITIS, W/O ABSCS Status: Suspected (12) Delirium due to another medical condition, acute, hyperactive Code(s): F05 - DELIRIUM DUE TO KNOWN PHYSIOLOGICAL CONDITION Status: Acute (13) Altered mental status Code(s): R41.82 - ALTERED MENTAL STATUS, UNSPECIFIED Status: Acute - Plan Plan: ICU Restraints as needed for patients safety, he has already removed his central line, fall risk Medications to keep the patient calm Agree with NG for feedings Agree with holding labs for a day or 2, will not changer fixer at this point. unless the patient develops massive bleeding would hold lab draws Metabolic work up benign Patient aware of low Hgb, patient/ family continues to decline blood transfusion secondary to presybeterian beliefs ABX for per ID e. coli sensitivity reviewed clostridium in anaerobic Cx incentive spirometry Q1 hour while awake Appreciate recs from Surgery, ICU, ID, and GI Agree with medications to help raise blood counts as patient refusing any blood transfusion
--- NOTE | 2019-03-15 14:20 | PRG ---
DATE OF SERVICE: 03/15/2019 SUBJECTIVE: Mr. Manuel remains in the Intensive Care Unit. He is status post open right hemicolectomy and is postoperative day #6 from this operation. This was performed for treatment of bleeding arteriovenous malformations of the cecum. He is a Nondenominational and therefore refuses transfusions. His hemoglobin today has come up to 4.7, which is the highest since his surgery. He continues to receive erythropoietin and yesterday, I gave another infusion of intravenous iron. I checked his B12 and folate levels and they were within normal limits. The patient continues to have evidence of encephalopathy. It is still uncertain if this is secondary to hypoxia related to his anemia or DTs potentially related to occult alcohol use. He is still requiring sedation, but is a little more manageable with his sedation apparently. He had several bowel movements yesterday. He has been voiding regularly. He cannot answer any questions at all. PHYSICAL EXAMINATION: VITAL SIGNS: His temperature is 98.1 and he has remained afebrile throughout. Pulse is 79 and blood pressure 112/66. LUNGS: Clear to auscultation anteriorly. CARDIAC: Regular rate and rhythm. ABDOMEN: Soft with well-healed midline incision. Bowel sounds are present, but hypoactive. EXTREMITIES: Unremarkable. LABORATORY DATA: His white blood cell count has dropped from 23 two days ago down to 13.7 this morning. His differential is unremarkable. His hemoglobin is up to 4.7 and his platelet count is 448. Chemistries revealed that his potassium is a little bit low at 3.4 and otherwise his metabolic panel is unremarkable. His ammonia level is normal as his TSH. ASSESSMENT: The patient remains hemodynamically stable. He has not had any meaningful nutrition now for about a week. If he is not clear enough tomorrow to be able to begin consuming calories, I will have to either try to put in a Dobhoff tube (which I think he will immediately pull out) or place a central line for TPN. He should continue observation in the ICU for now as he requires too much attention from nursing staff to go to the floor. Job ID: [id number]
--- NOTE | 2019-03-15 16:16 | PRG ---
DATE OF SERVICE: 03/15/2019 SERVICE: Pulmonary Medicine. INTERVAL HISTORY: The patient is doing outstanding from a mentation standpoint. His encephalopathy is clearing. He still remains quite confused, and agitated at times. That being said, he is following commands. He is moving bilateral upper extremities, lower extremities on command. He is opening and closing his mouth and eyes. He is much more directable at this point. Otherwise, there has been no interval change to his condition. PHYSICAL EXAMINATION: VITAL SIGNS: Afebrile. Pulse 75, blood pressure 131/85, respirations 23, saturation 97% on 3 L nasal cannula. GENERAL: The patient is awake and alert, in no apparent distress. LUNGS: Very good air entry. There is a prolonged expiratory phase, but no crackles or rhonchi. Paradoxical movement of his respirations have improved. HEART: Normal rate. Regular. ABDOMEN: Soft, nontender, nondistended. Bowel sounds are positive. MUSCULOSKELETAL: No cyanosis or clubbing. No pitting in the bilateral lower extremities. NEUROLOGIC: Grossly nonfocal. LABORATORY DATA: Hemoglobin 4.7 and gently uptrending, WBC 13.9, platelets 448,000. INR 1.1. Potassium 3.4, basic metabolic profile is otherwise unremarkable. ASSESSMENT: 1. Metabolic encephalopathy, stable. 2. Acute blood loss anemia. 3. Gross peritonitis secondary to perforated viscus. 4. Bleeding AVM, status post right hemicolectomy, postop day 6. DISCUSSION AND PLAN: The patient is doing wonderful from mentation standpoint. We will continue to wean away our benzos as tolerated. We will try to mobilize the patient a little bit. I will replace potassium. Once again, I will make an attempt giving the patient a laboratory holiday. We will certainly try to minimize blood draws in this patient as we do not have the ability to replace him. Job ID: [id number]
[2019-03-15] MEDS ORDERED: Magnesium 2 GM/50 ML 2 GM in Premix Bag 1 BAG IVPB SCH (17:15)
[2019-03-15] MEDS: Potassium Chloride 40 MEQ in Sodium Chloride 0.9% 500 ML IVPB SCH ×2 (17:55→21:36)
[2019-03-15] MEDS: Lorazepam 2 MG/ML VIAL SLOW IVP PRN ×2 (19:51→21:50)
[2019-03-16] MEDS: D5 1/2 NS w/20 mEq KCL 1,000 ML IV SCH ×2 (03:07→16:37)
[2019-03-16] MEDS: MEROPENEM 1 GM/50 ML 1 GM in Premix Bag 1 BAG IVPB SCH ×3 (05:08→22:16)
--- NOTE | 2019-03-16 06:39 | PDOC.GSPN ---
Surgery Progress Note: Subj - Subjective Narrative: Mr. Manuel is a 54 y/o male who remains in ICU. He is 7 days s/p right hemicolectomy which was performed as treatment for a bleeding AV malformation of the cecum. Pt is a Judaism and as such refuses transfusions. His latest hemoglobn was 4.7 on 03/15/19, which is the highest since his surgery. Pt continues to receive epoetin-anupama every 48 hours and last dose of 10,000 units SC was given on 03/14/19 at 1821. Last iron infusion was on 03/14/19 at 1030. Labs originally scheduled for morning of 03/16/19 were cancelled by another physician in order to give the patient a "holiday" considering his hemoglobin levels, per nursing. Per nurse, pt has experienced increased agitation overnight and popped a staple in incision line at 2047 last night, with small amount of serosanguinous drainage from wound. Pt was given ativan, last dose 0 on 03/15/19 which helped calm him a bit. He remains in four-point restraints and continues to have evidence of encephalopathy. Was able to open eyes to my voice and follow my directions to move all four extremities. He is voiding regularly, no further BMs since 03/14, and continues to not have any meaningful nutrition. Surgery Progress Note: Obj - Vital signs Vital signs: Vital Signs - Most Recent Temp Pulse Resp BP Pulse Ox 98.6 F 107 H 21 H 153/95 H 97 03/16/19 03:00 03/14/19 18:36 03/14/19 18:36 03/11/19 16:30 03/15/19 19:24 - Physical Exam General: other (Pt remains in four-point restrainst and is writhing in the bed, but denies pain.) Cardiovascular: regular rate and rhythm, no murmur Respiratory: clear to auscultation (anteriorly) Abdomen: other (Soft with midline dressing which is clean, dry, and intact. Bowel sounds are hypoactive.) Surgery Progress Note: Results - Labs Result Diagrams: 03/15/19 09:02 03/15/19 09:02 Surgery Progress Note: A/P - Problem (1) Cecum perforation Current Visit: Yes Code(s): K35.32 - ACUTE APPENDICITIS WITH PERF AND LOC PERITONITIS, W/O ABSCS Status: Suspected - Plan Plan: Pt remains hemodynamically stable. Continue epoetin and iron transfusions as ordered for continued severe anemia and monitor symptoms of encephalopathy. Consider putting in a Dobhoff tube or central line for TPN if patient is unable to consume meaningful calories today. Continue observation in ICU.
[2019-03-16] MEDS: Pantoprazole 40 MG VIAL IVP SCH (10:24)
[2019-03-16] MEDS: Sodium Chloride 0.9% (PF) 10 ML VIAL FS PRN (10:24)
--- NOTE | 2019-03-16 15:28 | PDOC.HOSPP ---
- Subjective Encounter Date: 03/16/19 Encounter Time: 08:00 Subjective: Patient seen and examined. pt is still incoherent, No overnight events - Objective Vital Signs & Weight: Vital Signs (12 hours) Temp Pulse Ox 03/16/19 10:29 100 03/16/19 07:00 98.3 F Weight Admit Weight 202 lb Weight 196 lb 3.382 oz Most Recent Monitor Data Heart Rate from ECG 67 NIBP 105/67 NIBP BP-Mean 79 Respiration from ECG 21 SpO2 100 I&O: 03/15/19 03/16/19 03/17/19 06:59 06:59 06:59 Intake Total 2463.5 3840 Balance 2463.5 3840 Result Diagrams: 03/15/19 09:02 03/15/19 09:02 EKG Reviewed by me: Yes (nsr) ROS - Review of Systems ROS unobtainable: due to mental status - Medication Medications: Active Medications Generic Name Dose Route Start Last Admin Trade Name Freq PRN Reason Stop Dose Admin Albuterol/Ipratropium 3 ml 03/07/19 12:25 03/15/19 03:05 Duoneb NEB 3 ml Q4H PRN Administration Wheezing Epoetin Waqas-epbx 10,000 unit 03/10/19 15:00 03/14/19 18:21 Retacrit SC 10,000 unit Q48H KRISTIAN Administration Meropenem 1 gm/ Device 50 mls @ 100 mls/hr 03/12/19 22:00 03/16/19 13:42 IVPB 50 mls Q8HR KRISTIAN Administration Potassium Chloride/Dextrose/Sod Cl 1,000 mls @ 100 mls/hr 03/13/19 13:15 03:07 D5 1/2 Ns W/20 Meq Kcl IV 1,000 mls .Q10H KRISTIAN Administration Dexmedetomidine HCl 400 mcg/ 100 mls @ 0 mls/hr 03/14/19 10:30 03/16/19 10:25 Sodium Chloride IVPB 100 mls INF KRISTIAN Administration Protocol Per Protocol Lorazepam 2 mg 03/13/19 16:18 03/15/19 21:50 Ativan SLOW IVP 2 mg Q2H PRN Administration Anxiety Ondansetron HCl 4 mg 03/07/19 12:25 03/11/19 19:55 Zofran IVP 4 mg Q6H PRN Administration Nausea/Vomiting Pantoprazole Sodium 40 mg 03/10/19 09:00 03/16/19 10:24 Protonix IVP 40 mg DAILY KRISTIAN Administration Sodium Chloride 10 ml 03/07/19 12:25 03/16/19 10:24 Flush - Normal Saline IVF 10 ml PRN PRN Administration Saline Flush Sodium Chloride 10 ml 03/09/19 23:25 03/16/19 10:24 Normal Saline Pf FS 10 ml PRN PRN Administration RECONSTITUTION - Exam NAD Eye: PERRL, anicteric sclera ENT: normocephalic atraumatic, no oropharyngeal lesions Neck: supple, symmetric, no JVD Heart: RRR, no murmur, no gallops Respiratory: CTAB, no wheezes, no rales Gastrointestinal: soft, non-tender, non-distended Extremities: no cyanosis, no clubbing, no edema Skin: normal turgor, no lesions Neurological: no focal deficits, no new deficit Musculoskeletal: normal tone, normal strength Psychiatric: not oriented Hosp A/P (1) AV malformation of GI tract Code(s): K55.20 - ANGIODYSPLASIA OF COLON WITHOUT HEMORRHAGE Status: Acute (2) Anemia due to acute blood loss Code(s): D62 - ACUTE POSTHEMORRHAGIC ANEMIA Status: Acute (3) GI bleed Code(s): K92.2 - GASTROINTESTINAL HEMORRHAGE, UNSPECIFIED Status: Acute (4) Orthostatic hypotension Code(s): I95.1 - ORTHOSTATIC HYPOTENSION Status: Acute (5) Syncope Code(s): R55 - SYNCOPE AND COLLAPSE Status: Acute (6) Anxiety and depression Code(s): F41.9 - ANXIETY DISORDER, UNSPECIFIED; F32.9 - MAJOR DEPRESSIVE DISORDER, SINGLE EPISODE, UNSPECIFIED Status: Chronic (7) Obesity (BMI 30.0-34.9) Code(s): E66.9 - OBESITY, UNSPECIFIED Status: Chronic (8) Patient is Gnosticism Code(s): Z78.9 - OTHER SPECIFIED HEALTH STATUS Status: Chronic (9) Leukocytosis (leucocytosis) Code(s): D72.829 - ELEVATED WHITE BLOOD CELL COUNT, UNSPECIFIED Status: Acute (10) Cecum perforation Code(s): K35.32 - ACUTE APPENDICITIS WITH PERF AND LOC PERITONITIS, W/O ABSCS Status: Acute Plan: s/p surgical repair - Plan old records reviewed/req his H& H is low, currently on medical treatment for that without transfusion vitals stable medication reviewed as above symptomatic treatment will monitor in ccu along with consultants
[2019-03-16] MEDS ORDERED: Lorazepam 2 MG/ML VIAL SLOW IVP PRN (16:46)
--- NOTE | 2019-03-16 17:04 | PRG ---
DATE OF SERVICE: 03/16/2019 SERVICE: Pulmonary Medicine. INTERVAL HISTORY: The patient's mentation seems to be improving further. Today, he seems to be starting to take a little bit of p.o. He is demonstrating improving strength. Otherwise, there has been no change to his condition. PHYSICAL EXAMINATION: VITAL SIGNS: Afebrile, pulse 67, blood pressure 105/67, respirations 21, and saturation 100% on room air. GENERAL: The patient is awake and alert, in no apparent distress. LUNGS: Decent air entry. There is no prolonged expiratory phase. No crackles or wheezing are appreciated. HEART: Normal rate, regular. ABDOMEN: Soft, nontender, and nondistended. Bowel sounds are positive. MUSCULOSKELETAL: No cyanosis or clubbing. No pitting in bilateral lower extremities. NEUROLOGIC: Grossly nonfocal. ASSESSMENT: 1. Metabolic encephalopathy, stable. 2. Acute blood loss anemia. 3. Gross peritonitis secondary to perforated viscus. 4. Bleeding arteriovenous malformation, status post hemicolectomy, postoperative day #7. 5. Zoroastrian, not able to give blood products to this man. DISCUSSION AND PLAN: The patient is really doing well from metabolic standpoint. We can repeat laboratories tomorrow morning including H and H, and a basic metabolic profile. We will perform these things every other day at this point until he is eating more robustly. We will continue his IV fluids for the time being. We are going to focus on mobilization efforts today, and try to get the patient into a chair and have Physical Therapy work with him. He will need to remain in intensive environment like the ICU or the IMCU until his encephalopathy clears to touch more. Job ID: [id number]
[2019-03-16] MEDS: EPOETIN ALFA-EPBX (ESRD) 10,000 UNIT/ML VIAL SC SCH (17:28)
--- NOTE | 2019-03-16 19:11 | PRG ---
DATE OF SERVICE: 03/16/2019 SUBJECTIVE: The patient is still very confused, unable to provide with review of systems. Does not follow commands. OBJECTIVE: VITAL SIGNS: T-max 98.8, blood pressure 130/90, pulse 106, heart rate 75, and O2 saturation 100. The patient has a peripheral IV access. HEENT: Ocular movements conjugate, pale conjunctivae. LUNGS: Symmetric air entry. HEART: S1 and S2, regular rate. ABDOMEN: With a midline incision, which is dry without drainage. No erythema. The abdomen is soft. Bowel sounds are present. LABORATORY DATA: The white cell count is down to 13.7, hemoglobin 4.7, platelets 448 with 67% neutrophils and sodium 140 and creatinine 0.75. ASSESSMENT AND DISCUSSION: Jehovah witness with an AV malformation associated with colonic bleeds, status post fulguration and perforation with peritonitis and laparoscopic and then open laparotomy with hemicolectomy, peritonitis associated with it. The patient has been improving steadily, but still with a fragile status due to inability to transfuse. Should be able to discontinue antimicrobial therapy, although in his case in view of the high risk associated with the inability to provide blood transfusions, I would probably err on the side of extending longer the therapy until all the inflammatory markers are completely normal. Nutritional support is going to be an issue, and he may need enteric feedings. Job ID: [id number]
--- NOTE | 2019-03-16 21:40 | PRG ---
DATE OF SERVICE: 03/16/2019 REASON FOR CONSULTATION: Hematochezia. SUBJECTIVE: Over the last few days, the patient has been having increasing agitation and altered mental status, presumably due to decreased effective circulating blood volume and possible lack of oxygen to the brain. However, over the last 24 hours, he has improved in terms of his ability to follow simple commands, although when asked more specific questions, his answers are somewhat tangential and incorrect. Per nursing staff, the patient has been displaying some increased agitation at nights requiring the use of restraints, but otherwise is doing well. He has had no further bowel movement since the blood clots passed a few days ago with no further episodes of hematochezia. OBJECTIVE: VITAL SIGNS: Temperature 98.5, pulse 64, blood pressure 98/62, respiratory rate 21, saturating 100% on room air. GENERAL: The patient is lying in bed, in no observed distress. Alert, but not oriented. CARDIOVASCULAR: Regular rate and rhythm with no discernible murmurs, gallops, or rubs. RESPIRATORY: Clear to auscultation bilaterally. ABDOMEN: Normoactive bowel sounds. Soft, nondistended. Surgical staple line noted in the mid abdomen with small amount of serosanguineous fluid coming from the superior aspect of the wound, but no evidence of increased skin erythema or purulence. EXTREMITIES: No cyanosis, clubbing, or edema. LABORATORY DATA: No current studies are available for review given lab holiday. IMAGING DATA: No current GI imaging is available for review. ASSESSMENT AND PLAN: The patient is a 54-year-old male with past medical history of osteoarthritis, gastroesophageal reflux disease, depression, skin cancer of the nares status post excision, and hearing loss, presenting with hematochezia secondary to cecal arteriovenous malformations that initially had underwent argon plasma coagulation, but complicated by colonic perforation and rebleeding requiring right hemicolectomy. Hematochezia: The patient's hospital course thus far has been fairly complicated secondary to the increased bleeding from arteriovenous malformations with the colon perforation and rebleeding of these arteriovenous malformations requiring an emergent right hemicolectomy. In the postoperative period, he displayed an increased encephalopathic type picture, which is slowly starting to resolve. At this point, the origin of his encephalopathy is unclear, but may be due to decreased effective circulating blood volume with a lack of effective delivered to the brain versus medications versus further GI bleeding with release of ammonia into the system (much less likely given his normal ammonia a few days ago). He has had no further hematochezia type bowel movements since passing the blood clots on postop day 2. It seems as though he is going to require a little bit more time in order for bone marrow to effectively ramp up production. RECOMMENDATIONS: 1. We would continue to trend his H and H, but also agree with minimization of any lab draws in order to prevent any iatrogenic anemia. 2. Continue to monitor clinically for signs of any active GI bleeding. 3. If the patient continues to have a decrease in his H and H, we will consider either a tagged red cell scan or unprepped colonoscopy for further identification of the GI bleeding source. 4. Antibiotics per ICU Team. We will continue to follow peripherally at this time. Please call with any questions. Job ID: [id number]
[2019-03-17] MEDS: D5 1/2 NS w/20 mEq KCL 1,000 ML IV SCH ×4 (04:24→18:37)
[2019-03-17 04:57] LABS: Hemoglobin 5.9 g/dL (14.0-18.0)
[2019-03-17 04:59] LABS: Anion Gap 12 mmol/L (10-20); BUN (Urea Nitrogen) 6 mg/dL (8.4-25.7); Calc. Creatinine Clearance 138 mL/min (70-130); Calcium 8.4 mg/dL (7.8-10.44); Carbon Dioxide 20 mmol/L (22-29); Chloride 109 mmol/L (98-107); Estimated GFR-MDRD Greater than 90; Glucose 112 mg/dL (70-105); Potassium 3.5 mmol/L (3.5-5.1); Sodium 137 mmol/L (136-145)
[2019-03-17 05:30] LABS: Phosphorus 2.9 mg/dL (2.3-4.7)
[2019-03-17 05:41] VITALS: BMI 29.3
[2019-03-17] MEDS: MEROPENEM 1 GM/50 ML 1 GM in Premix Bag 1 BAG IVPB SCH ×3 (05:59→22:29)
--- NOTE | 2019-03-17 10:07 | PRG ---
DATE OF SERVICE: 03/17/2019 SERVICE: Pulmonary Medicine. INTERVAL HISTORY: The patient is doing really well from mentation standpoint. His blood pressures are very good. His heart rates firmed up nicely. He has been able to get out of bed for 3 hours yesterday, he is out of bed for 2 hours this morning. He is much more awake and comfortable. Diaz catheter and restraints have been discontinued. He is actually quite pleasant this morning with no complaints. PHYSICAL EXAMINATION: VITAL SIGNS: Afebrile, pulse 61, blood pressure 86/69, respirations 14, and saturation 100% on room air. GENERAL: The patient is awake and alert, in no apparent distress. LUNGS: Decent air entry. No prolonged expiratory phase or wheezing is appreciated. HEART: Normal rate. Regular. ABDOMEN: Soft, nontender, and nondistended. Bowel sounds are positive. MUSCULOSKELETAL: No cyanosis or clubbing. No pitting in bilateral lower extremities. NEUROLOGIC: Grossly nonfocal. LABORATORY DATA: Hemoglobin has improved to 5.9. Basic metabolic profile is otherwise unremarkable. Iron level remains low at 23. Phosphorus falls within the normal limits. ASSESSMENT: 1. Metabolic encephalopathy, improving. 2. Acute blood loss anemia. 3. Gross peritonitis secondary to perforated viscus. 4. Bleeding arteriovenous malformation, status post hemicolectomy, postop day 8. 5. Religious, refusing blood products. DISCUSSION AND PLAN: The patient is fine from respiratory standpoint. His mentation is improved to the point where he is stable for transition out of the ICU to the medical unit. Pulmonary/Critical Care will continue to follow along. I will once again give the patient a laboratory holiday tomorrow. We will need to focus on early mobilization efforts. Precedex and Ativan will be interrupted for the time being. Job ID: [id number] MTDD
[2019-03-17] MEDS: Sodium Chloride 0.9% (PF) 10 ML VIAL FS PRN (10:20)
[2019-03-17] MEDS: Pantoprazole 40 MG VIAL IVP SCH (10:21)
[2019-03-17] MEDS: HYDROcodone/Acetaminophen 7.5/325 mg Tablet PO PRN ×3 (11:22→22:27)
[2019-03-17] MEDS: Iron, Sodium Ferric Gluconate 250 MG in Sodium Chloride 0.9% 100 ML IVPB SCH (12:28)
--- NOTE | 2019-03-17 15:08 | PDOC.HOSPP ---
- Subjective Encounter Date: 03/17/19 Encounter Time: 08:00 Subjective: awake and responds well to verbal stimuli no sob, says he is eating (jello) - Objective Vital Signs & Weight: Vital Signs (12 hours) Temp Pulse Ox 03/17/19 12:00 98.0 F 03/17/19 08:00 97 03/17/19 07:00 98.0 F 03/17/19 04:00 97.9 F Weight Admit Weight 202 lb Weight 193 lb 12.581 oz Most Recent Monitor Data Heart Rate from ECG 80 NIBP 137/69 NIBP BP-Mean 91 Respiration from ECG 21 SpO2 100 I&O: 03/16/19 03/17/19 03/18/19 06:59 06:59 06:59 Intake Total 3840 3104 863 Output Total 615 Balance 3840 4825 863 Result Diagrams: 03/17/19 04:02 03/17/19 04:02 ROS - Medication Medications: Active Medications Generic Name Dose Route Start Last Admin Trade Name Freq PRN Reason Stop Dose Admin Hydrocodone Bitart/Acetaminophen 2 tab 03/10/19 23:59 03/17/19 11:22 [place] 7.5/325 PO 2 tab Q4H PRN Administration Severe Pain (7-10) Albuterol/Ipratropium 3 ml 03/07/19 12:25 03/15/19 03:05 Duoneb NEB 3 ml Q4H PRN Administration Wheezing Meropenem 1 gm/ Device 50 mls @ 100 mls/hr 03/12/19 22:00 03/17/19 14:01 IVPB 50 mls Q8HR KRISTIAN Administration Potassium Chloride/Dextrose/Sod Cl 1,000 mls @ 50 mls/hr 03/17/19 09:55 03/17 10:24 D5 1/2 Ns W/20 Meq Kcl IV 1,000 mls .Q20H KRISTIAN Administration Ferric Sodium Gluconate 120 mls @ 60 mls/hr 03/17/19 11:30 03/17/19 12:28 Complex 250 mg/ Sodium IVPB 03/18/19 01:29 120 mls Chloride 1130,2330 KRISTIAN Administration Ondansetron HCl 4 mg 03/07/19 12:25 03/11/19 19:55 Zofran IVP 4 mg Q6H PRN Administration Nausea/Vomiting Pantoprazole Sodium 40 mg 03/10/19 09:00 03/17/19 10:21 Protonix IVP 40 mg DAILY KRISTIAN Administration Sodium Chloride 10 ml 03/07/19 12:25 03/16/19 10:24 Flush - Normal Saline IVF 10 ml PRN PRN Administration Saline Flush Sodium Chloride 10 ml 03/09/19 23:25 03/17/19 10:20 Normal Saline Pf FS 10 ml PRN PRN Administration RECONSTITUTION - Exam NAD, awake alert Eye: PERRL, anicteric sclera ENT: no oropharyngeal lesions, dry oral mucosa Neck: supple, no JVD Heart: RRR, no murmur Respiratory: no wheezes, no rales Gastrointestinal: soft, non-distended Gastrointestinal - other findings: surgical area in dressing Extremities: no cyanosis, no edema Neurological: CN's grossly intact, no focal deficits Hosp A/P (1) AV malformation of GI tract Code(s): K55.20 - ANGIODYSPLASIA OF COLON WITHOUT HEMORRHAGE Status: Acute Plan: s/p right hemicolectomy (2) Anemia due to acute blood loss Code(s): D62 - ACUTE POSTHEMORRHAGIC ANEMIA Status: Acute (3) GI bleed Code(s): K92.2 - GASTROINTESTINAL HEMORRHAGE, UNSPECIFIED Status: Acute (4) Patient is Buddhist Code(s): Z78.9 - OTHER SPECIFIED HEALTH STATUS Status: Chronic (5) Perforated abdominal viscus Code(s): KVP3126 - Status: Acute (6) Peritonitis (acute) generalized Code(s): K65.0 - GENERALIZED (ACUTE) PERITONITIS Status: Acute - Plan is on meropenem, morphine prn, gentle iv fluids Hb around 5g to mobilize as tolerated hemostable given his episcopal belief of not wanting blood products.
--- NOTE | 2019-03-17 16:56 | PRG ---
DATE OF SERVICE: 03/17/2019 SUBJECTIVE: Mr. Manuel remains in the Intensive Care Unit. He is status post open right hemicolectomy for bleeding cecal arteriovenous malformations. His surgery was on March 09. He is postoperative day #8. He has had a fairly severe encephalopathy for the last 4 or 5 days, requiring four point restraints. He was coming out of it yesterday and today, he appears to be fully recovered. He is alert and communicative and interactive. He has been tolerating his diet today. He has ambulated with physical therapy. I queried him regarding his alcohol consumption and he is sticking to his preoperative statement that he drinks alcohol rarely, typically once or twice per month. If this is true, then it seems unlikely that his encephalopathy was related to delirium tremens. OBJECTIVE: VITAL SIGNS: On examination, he is afebrile. His pulse is 72, blood pressure 135/70. GENERAL: He is a well-developed, well-nourished male, resting in bed, comfortable and alert. LUNGS: Clear to auscultation. CARDIAC: Regular rate and rhythm. ABDOMEN: Soft, nontender, and nondistended. Bowel sounds are present and normoactive. His incision is healing nicely. There was previously serous drainage from an area, where one of his ese came out. There was essentially no drainage currently. EXTREMITIES: Unremarkable. LABORATORY DATA: His hemoglobin this morning is 5.9, up from 4.7 two days ago. His chemistry panel reveals electrolytes with slight irregularity with elevated chloride and decreased CO2 levels. His iron level, interestingly, is 23. This is in spite of intravenous iron infusion two days ago. ASSESSMENT AND PLAN: He is doing very well following right hemicolectomy. His anemia is resolving without transfusion (as he is a Buddhist) he has been advanced up to a heart-healthy diet appropriately. He has been transferred to the surgical floor. His anemia is resolving appropriately. He is stable for discharge in the next 24 to 48 hours from my standpoint. He should be discharged home with oral iron supplementation. I would like to see him back a week from today when he will be just a little over 2 weeks out from his surgery. I would plan on removing the ese at that time. Job ID: [id number]
[2019-03-17] MEDS ORDERED: Iron, Sodium Ferric Gluconate 250 MG in Sodium Chloride 0.9% 100 ML IVPB SCH (21:00)
[2019-03-18] MEDS: Iron, Sodium Ferric Gluconate 250 MG in Sodium Chloride 0.9% 100 ML IVPB SCH (00:09)
[2019-03-18] MEDS: MEROPENEM 1 GM/50 ML 1 GM in Premix Bag 1 BAG IVPB SCH (05:08)
[2019-03-18] MEDS: D5 1/2 NS w/20 mEq KCL 1,000 ML IV SCH (07:38)
--- NOTE | 2019-03-18 09:42 | PDOC.GSPN ---
Surgery Progress Note: Subj - Subjective Patient reports: no new complaints, tolerating a regular diet Surgery Progress Note: Obj - Vital signs Vital signs: Vital Signs - Most Recent Temp Pulse Resp BP Pulse Ox 98.4 F 76 13 139/57 L 99 03/18/19 07:17 03/18/19 07:17 03/18/19 07:17 03/18/19 07:17 03/18/19 07:17 - Physical Exam General: no distress Abdomen: soft, positive bowel sounds, appropriately tender Wound: healing well Surgery Progress Note: Results - Labs Result Diagrams: 03/17/19 04:02 03/17/19 04:02 Surgery Progress Note: A/P - Problem (1) Perforated abdominal viscus Current Visit: Yes Code(s): [id number] - Status: Acute - Plan Plan: Bleeding right colon s/p colectomy -advance diet -cont to mobilize -likely home early in the week
[2019-03-18] MEDS: Pantoprazole 40 MG VIAL IVP SCH (09:45)
--- NOTE | 2019-03-18 12:15 | EKG ---
Test Reason : Blood Pressure : / mmHG Vent. Rate : 086 BPM Atrial Rate : 086 BPM P-R Int : 160 ms QRS Dur : 072 ms QT Int : 404 ms P-R-T Axes : 026 037 064 degrees QTc Int : 483 ms Sinus rhythm with Premature atrial complexes with Abberant conduction Nonspecific T wave abnormality Prolonged QT Abnormal ECG Confirmed by SHIRA SILVERIO ([id number]), avid editor ROB FLOR ([id number]) on 03/18/2019 12:15:07 PM Referred By: Confirmed By:SHIRA SILVERIO
--- NOTE | 2019-03-18 12:25 | PDOC.HOSPP ---
- Subjective Encounter Date: 03/18/19 Encounter Time: 10:00 Subjective: is passing stool now, no abd pain or nausea is amb in room, no dizziness - Objective Vital Signs & Weight: Vital Signs (12 hours) Temp Pulse Resp BP Pulse Ox 03/18/19 11:51 98.3 F 78 13 131/79 93 L 03/18/19 07:17 98.4 F 76 13 139/57 L 99 03/18/19 03:10 98.6 F 68 16 139/82 97 Weight Admit Weight 202 lb Weight 195 lb 1.6 oz Most Recent Monitor Data Heart Rate from ECG 72 NIBP 135/78 NIBP BP-Mean 97 Respiration from ECG 16 SpO2 100 I&O: 03/17/19 03/18/19 03/19/19 06:59 06:59 06:59 Intake Total 3104 1771 1006 Output Total 615 500 250 Balance 2489 1271 756 Result Diagrams: 03/17/19 04:02 03/17/19 04:02 ROS - Medication Medications: Active Medications Generic Name Dose Route Start Last Admin Trade Name Freq PRN Reason Stop Dose Admin Hydrocodone Bitart/Acetaminophen 2 tab 03/10/19 23:59 03/17/19 22:27 [place] 7.5/325 PO 2 tab Q4H PRN Administration Severe Pain (7-10) Albuterol/Ipratropium 3 ml 03/07/19 12:25 03/15/19 03:05 Duoneb NEB 3 ml Q4H PRN Administration Wheezing Ondansetron HCl 4 mg 03/07/19 12:25 03/11/19 19:55 Zofran IVP 4 mg Q6H PRN Administration Nausea/Vomiting Pantoprazole Sodium 40 mg 03/10/19 09:00 03/18/19 09:45 Protonix IVP 40 mg DAILY KRISTIAN Administration Sodium Chloride 10 ml 03/07/19 12:25 03/17/19 21:32 Flush - Normal Saline IVF 10 ml PRN PRN Administration Saline Flush Sodium Chloride 10 ml 03/09/19 23:25 03/17/19 10:20 Normal Saline Pf FS 10 ml PRN PRN Administration RECONSTITUTION - Exam NAD, awake alert Eye: PERRL, anicteric sclera ENT: no oropharyngeal lesions, moist mucosa Neck: supple, no JVD Heart: RRR, no murmur Respiratory: no wheezes, no rales Gastrointestinal: soft, non-distended, normal bowel sounds Extremities: no clubbing, no edema Neurological: CN's grossly intact, no focal deficits Psychiatric: normal affect, A&O x 3 Hosp A/P (1) AV malformation of GI tract Code(s): K55.20 - ANGIODYSPLASIA OF COLON WITHOUT HEMORRHAGE Status: Acute Plan: with hemorrhage (2) Anemia due to acute blood loss Code(s): D62 - ACUTE POSTHEMORRHAGIC ANEMIA Status: Acute (3) GI bleed Code(s): K92.2 - GASTROINTESTINAL HEMORRHAGE, UNSPECIFIED Status: Acute (4) Patient is Synagogue Code(s): Z78.9 - OTHER SPECIFIED HEALTH STATUS Status: Chronic (5) Perforated abdominal viscus Code(s): HDQ5781 - Status: Acute Plan: s/p right hemicolectomy (6) Peritonitis (acute) generalized Code(s): K65.0 - GENERALIZED (ACUTE) PERITONITIS Status: Acute - Plan off meropenem and iv fluids, morphine prn Hb around 5g to mobilize as tolerated hemostable given his buddhism belief of not wanting blood products. has recieved 2 doses of ferrlicet, will give 2more today and tomorrow add vit c and mvi is passing stool and tolerating solid diet
[2019-03-18] MEDS ORDERED: Iron, Sodium Ferric Gluconate 250 MG in Sodium Chloride 0.9% 100 ML IVPB SCH (12:30)
[2019-03-18] MEDS: HYDROcodone/Acetaminophen 7.5/325 mg Tablet PO PRN ×2 (16:58→21:01)
--- NOTE | 2019-03-18 17:43 | PRG ---
DATE OF SERVICE: 03/18/2019 SERVICE: Pulmonary Medicine. INTERVAL HISTORY: The patient is doing wonderful from a mentation standpoint. His strength is improved. He is actually getting up on his own, walking around the hallways. Denies any fevers or chills. He was doing fantastic this morning, but about 15 minutes ago, he had an episode where he felt feet are overwhelmingly hot. His temperature was taken and did not have a temperature. This is subsequently passed. The most recent infusion of iron has caused him to have an episode of nausea. PHYSICAL EXAMINATION: VITAL SIGNS: Afebrile, pulse 88, blood pressure 148/83, respirations 12, and saturation 94% on room air. GENERAL: The patient is awake and alert, in no apparent distress. LUNGS: Decent air entry. No prolonged expiratory phase or wheezing is appreciated. HEART: Normal rate, regular. ABDOMEN: Soft, nontender, nondistended. Bowel sounds are positive. MUSCULOSKELETAL: No cyanosis or clubbing. No pitting in the bilateral lower extremities. NEUROLOGIC: Grossly nonfocal. ASSESSMENT: 1. Metabolic encephalopathy, resolved. 2. Delirium, resolved. 3. Acute blood loss anemia. 4. Gross peritonitis secondary to perforated viscus. 5. Bleeding AVM, status post right hemicolectomy, postop day 9. 6. Pentecostalism, refusing blood products. DISCUSSION AND PLAN: The patient has figuratively dodged a bullet. He is simply cristhian to have survived this event. I am grateful that he is improving. At this point, he has no further requirements for Pulmonary or Critical Care opinion, and I will sign off. Please call with additional questions or concerns through time. Job ID: [id number] MTDD
[2019-03-18] MEDS: Zolpidem Tartrate 5 MG TAB PO PRN (22:45)
[2019-03-19] MEDS: Multivitamin W/ Minerals 1 TAB PO SCH (08:39)
[2019-03-19] MEDS: Pantoprazole 40 MG VIAL IVP SCH (08:39)
[2019-03-19] MEDS: Ascorbic Acid 500 mg Chewable Tablet PO SCH (08:39)
--- NOTE | 2019-03-19 09:15 | PRG ---
DATE OF SERVICE: 03/19/2019 SUBJECTIVE: Mr. Manuel is doing well. He is walking with a walker. He has no significant dizziness. He does feel weak and tired. He is tolerating the regular diet. His bowel movements are sometimes harder, sometimes liquidy. OBJECTIVE: VITAL SIGNS: His blood pressure 146/77. His pulse is 67. He is afebrile. ABDOMEN: Soft and nontender. Wound is healing well. ASSESSMENT AND PLAN: Status post right colectomy for bleeding. No blood given secondary to church reasons. Last hemoglobin was 5.9 and have not repeated he is clinically improved. I suspect he will be ready to be discharged in the next 24 to 48 hours. Job ID: [id number]
--- NOTE | 2019-03-19 11:58 | PDOC.HOSPP ---
- Subjective Encounter Date: 03/19/19 Encounter Time: 10:00 Subjective: feels better, is amb in hallway has had regular bm's no abd pain or nausea tolerating solid diet - Objective Vital Signs & Weight: Vital Signs (12 hours) Temp Pulse Resp BP BP Pulse Ox 03/19/19 11:34 98.4 F 93 16 124/61 97 03/19/19 08:00 95 03/19/19 07:37 98.7 F 67 16 146/77 H 95 03/19/19 04:00 98.3 F 60 16 117/63 95 03/19/19 00:00 98.1 F 67 18 146/78 H 100 Weight Admit Weight 202 lb Weight 189 lb 11.2 oz Most Recent Monitor Data Heart Rate from ECG 72 NIBP 135/78 NIBP BP-Mean 97 Respiration from ECG 16 SpO2 100 I&O: 03/18/19 03/19/19 03/20/19 06:59 06:59 06:59 Intake Total 1771 2060 Output Total 500 700 Balance 1271 1360 Result Diagrams: 03/17/19 04:02 03/17/19 04:02 ROS - Medication Medications: Active Medications Generic Name Dose Route Start Last Admin Trade Name Freq PRN Reason Stop Dose Admin Hydrocodone Bitart/Acetaminophen 1 tab 03/10/19 23:59 03/19/19 08:45 [place] 7.5/325 PO 1 tab Q4H PRN Administration Moderate Pain (4-6) Hydrocodone Bitart/Acetaminophen 2 tab 03/10/19 23:59 03/18/19 21:01 [place] 7.5/325 PO 2 tab Q4H PRN Administration Severe Pain (7-10) Albuterol/Ipratropium 3 ml 03/07/19 12:25 03/15/19 03:05 Duoneb NEB 3 ml Q4H PRN Administration Wheezing Ascorbic Acid 500 mg 03/19/19 09:00 03/19/19 08:39 Vitamin C PO 500 mg DAILY KRISTIAN Administration Iron/Minerals/Multivitamins 1 tab 03/19/19 09:00 03/19/19 08:39 Theragran M PO 1 tab DAILY KRISTIAN Administration Ondansetron HCl 4 mg 03/07/19 12:25 03/11/19 19:55 Zofran IVP 4 mg Q6H PRN Administration Nausea/Vomiting Pantoprazole Sodium 40 mg 03/10/19 09:00 03/19/19 08:39 Protonix IVP 40 mg DAILY KRISTIAN Administration Sodium Chloride 10 ml 03/07/19 12:25 03/17/19 21:32 Flush - Normal Saline IVF 10 ml PRN PRN Administration Saline Flush Sodium Chloride 10 ml 03/09/19 23:25 03/17/19 10:20 Normal Saline Pf FS 10 ml PRN PRN Administration RECONSTITUTION Zolpidem Tartrate 5 mg 03/05/19 17:09 03/18/19 22:45 Ambien PO 5 mg HSPRN PRN Administration Insomnia - Exam NAD, awake alert Eye: PERRL, anicteric sclera ENT: no oropharyngeal lesions, moist mucosa Neck: supple, no JVD Heart: RRR, no murmur Respiratory: no wheezes, no rales Gastrointestinal: soft, non-distended, normal bowel sounds Gastrointestinal - other findings: ese/surg site is clean Extremities: no cyanosis, no clubbing, no edema Neurological: CN's grossly intact, no focal deficits Psychiatric: normal affect, A&O x 3 Hosp A/P (1) AV malformation of GI tract Code(s): K55.20 - ANGIODYSPLASIA OF COLON WITHOUT HEMORRHAGE Status: Acute (2) Anemia due to acute blood loss Code(s): D62 - ACUTE POSTHEMORRHAGIC ANEMIA Status: Acute (3) GI bleed Code(s): K92.2 - GASTROINTESTINAL HEMORRHAGE, UNSPECIFIED Status: Acute (4) Patient is Bahai Code(s): Z78.9 - OTHER SPECIFIED HEALTH STATUS Status: Chronic (5) Perforated abdominal viscus Code(s): [id number] - Status: Acute (6) Peritonitis (acute) generalized Code(s): K65.0 - GENERALIZED (ACUTE) PERITONITIS Status: Acute - Plan morphine prn Hb around 5g to mobilize as tolerated hemostable given his pentecostalism belief of not wanting blood products. has recieved 2 doses of ferrlicet vit c and mvi is passing stool and tolerating solid diet Likely dc plan in am
[2019-03-19] MEDS: HYDROcodone/Acetaminophen 7.5/325 mg Tablet PO PRN (20:11)
[2019-03-19] MEDS: Zolpidem Tartrate 5 MG TAB PO PRN (20:49)
[2019-03-20 04:03] VITALS: TEMP 98.7
[2019-03-20 06:21] LABS: #Eosinphils 0.4 thou/uL (0.0-0.7); #Lymphocytes 1.3 thou/uL (1.20-3.40); #Monocytes 1.3 thou/uL (0.11-0.59); #Neutrophils 9.2 thou/uL (1.40-6.50); %Basophils 0.2 % (0.0-1.0); %Eosinophils 3.4 % (0.0-10.0); %Monocytes 10.5 % (0.0-10.0); %Neutrophils 74.9 % (42.0-75.0); Hemoglobin 7.6 g/dL (14.0-18.0); Mean Corpuscular HGB CONC 29.4 g/dL (32.0-36.0); Mean Corpuscular Volume 98.4 fL (78.0-98.0); Mean Platelet Volume 8.1 fL (7.4-10.4); Platelet Count 538 thou/uL (130-400); RBC Distribution Width 24.2 % (11.5-14.5); Red Blood Cell (RBC) Count 2.62 mill/uL (4.70-6.10); White Blood Cell (WBC) Count 12.2 thou/uL (4.8-10.8)
[2019-03-20 06:28] LABS: Anisocytosis SLIGHT = 6-15 cells (100X) (0-5/hpf); Elliptocytes SLIGHT = 2-5 cells (100X) (0-1/hpf); Hypochromia SLIGHT = 6-15 cells (100X) (0-5/hpf); MDiff Complete? YES; Platelet Morphology Comment Appears Adequate; Polychromasia MODERATE = 3-4 cells (100X) (0-2/hpf)
[2019-03-20 07:56] VITALS: BP 136/75
[2019-03-20] MEDS ORDERED: Ferrous Sulfate 325 MG TAB PO SCH (08:00)
[2019-03-20] MEDS: Ascorbic Acid 500 mg Chewable Tablet PO SCH (10:06)
[2019-03-20] MEDS: Multivitamin W/ Minerals 1 TAB PO SCH (10:06)
--- NOTE | 2019-03-20 13:26 | PRG ---
DATE OF SERVICE: 03/20/2019 SUBJECTIVE: Mr. Manuel remains hospitalized this morning. He is on the surgical floor. Over the weekend, he has been eating without difficulty. He has tolerated his diet, had no nausea or vomiting, and had regular bowel function. He tells me he is voiding well. He notes that he has minimal discomfort. He notes that he is walking better and strength is improving. He was walking yesterday without his walker. OBJECTIVE: VITAL SIGNS: He is afebrile, pulse is 84, blood pressure is 136/75. LUNGS: Clear to auscultation. CARDIAC: Regular rate and rhythm. ABDOMEN: Soft, nontender, and nondistended. Some of the ese have come out of the upper portion of upper midline abdominal wound, but the entire incision is intact. His abdomen is soft and without any discomfort. There are normal bowel sounds throughout. LABORATORY DATA: His hemoglobin this morning is 7.6 with a white blood cell count of 12.2. His hemoglobin is up from 5.9 three days ago. Platelet count is 548. His chemistry panel only shows that his iron is still low at 39 (but up from 23 three days ago). ASSESSMENT: He remains stable following his right hemicolectomy for bleeding arteriovenous malformation. He refused transfusion secondary to his wendy as Jehovah Witness. This led to his hemoglobin dropping as low as 3.9. He developed a fairly severe encephalopathy that we believe was likely secondary to inadequate oxygen delivery secondary to his severe anemia. His encephalopathy has resolved without problem. He is doing well at this time, is certainly stable for discharge. I will give him a prescription for iron to continue to take at home to help re-build his blood cell volume. He will come back and see me in 4 days for removal of his remaining ese. Job ID: [id number]
--- NOTE | 2019-03-20 16:31 | DIS ---
DATE OF ADMISSION: 03/05/2019 DATE OF DISCHARGE: 03/20/2019 DISCHARGE DISPOSITION: Home. PRIMARY DISCHARGE DIAGNOSES: Cecal AV malformation with GI bleed and acute blood loss anemia, status post right hemicolectomy, with acute peritonitis, resolved. PROCEDURES DONE DURING HOSPITALIZATION: The patient had EGD and colonoscopy done on 03/05/2019, there was a 3 to 4 mm nonbleeding Alpesh lesions. A 3 cm hiatal hernia was seen on the EGD. Colonoscopy showed five cecal AV malformations measuring 1 to 8 mm in size. The largest exhibiting evidence of recent bleeding now status post argon plasma coagulation with good hemostasis to 4 to 6 mm AV malformations in the proximal ascending colon, status post argon plasma coagulation. A 3 mm descending AV malformation, status post argon plasma coagulation, severe left-sided diverticulosis, small internal hemorrhoids. Abdominal and pelvic CAT scan done on 03/06/2019 showed free intraperitoneal air with tiny gas pockets near the duodenum and roshan hepatitis. Pneumatosis of the cecal wall and possible tiny extraluminal gas pockets around the cecum. No free fluid was seen. The patient had laparoscopic repair of colonic perforation with partial cecectomy, laparoscopic appendectomy, drainage of intraabdominal abscess and placement of postoperative drain. All of this was done on 03/07/[address] Ghosh. The patient had open right hemicolectomy done for recurrent GI bleed with severe anemia and being a Jehovah 's Witness done by Dr. Ghosh on 03/09/2019. Peritoneal fluid culture grew Escherichia coli, Clostridium ramosum, and bacteroides fragilis, this was taken on 03/07/2019. Stool for C diff on 03/09/2019 was negative. Hemoglobin on the day of discharge is 7.6, had gone down to 3.9 on the 10 of March. Hematocrit on the day of discharge is 25.7 had gone down to 12.8 on the , platelet count 538 on the day of discharge with white count of 12, MCV is 98, BUN 6, creatinine 0.7 on the . Serum iron is 39, B12 of 828, folic acid 12.6, TSH 2.16. DISCHARGE MEDICATIONS: 1. Ferrous sulfate 325 mg p.o. twice daily. 2. Multivitamin one tablet once daily. 3. Zoloft 50 mg p.o. daily. ALLERGIES: NO KNOWN DRUG ALLERGIES. INPATIENT CONSULT: 1. Dr. Ghosh for General Surgery. 2. Dr. Aguila Pacheco for Gastroenterology. DISCHARGE PLAN: The patient to follow up with Dr. Ghosh in 4 days for removal of rest of his ese. He needs to follow up with primary care physician in 1 week. BRIEF COURSE DURING HOSPITALIZATION: The patient initially got admitted on the 05 of March with history of syncopal episode. He was feeling dizzy and weak as well. He also had a bright red blood stool, one episode prior to arrival here. In view of this history, the patient was admitted to hospital. He has had serial H and H done, which was dropping down. He has had upper and lower endoscopies done. The lower endoscopy revealed cecal AV malformations and these were seen in the ascending and descending colon as well. All of them were argon coagulated. The patient developed cecal perforation and had a laparoscopic repair initially. Later, the patient developed peritonitis with abscess and had open laparotomy done by Dr. Ghosh. The patient is a Pentecostal and had refused blood transfusion due to his wendy. His hemoglobin had gone down to as low as 3.9 g. His discharge hemoglobin is around 7.6 g. He was given IV iron infusions and has been prescribed oral iron pills at the time of discharge. The patient had a brief encephalopathy likely due to low hemoglobin and cerebral perfusion, which is completely resolved. Prior to discharge, he is tolerating solid diet and is also passing stools. He has remained hemodynamically stable and is wanting to go home. He is cleared by Dr. Ghosh for discharge. He needs to follow up with him in 4 days for removal of rest of his ese. Please note, I have seen and examined the patient on the day of discharge. Job ID: [id number] [facility]
== END 2019-03-20 10:56 | disposition home or self-care (01) | DRG 329 ==
LOC: ERS 11:53 → ERHOLD 14:11 → IMCU/EMU 18:53 → T4-B 03-06 17:35 → SJJU 03-07 15:51 → CCU 03-09 20:56 → SURG A 03-17 17:03
PROVIDERS: ADMIT Internal Medicine; ATTEND Internal Medicine
PROC: 0DJ08ZZ Inspection of Upper Intestinal Tract, Via Natural or Artificial Opening Endoscopic (ICD-10-PCS; principal; 2019-03-05)
PROC: 0DJD8ZZ Inspection of Lower Intestinal Tract, Via Natural or Artificial Opening Endoscopic (ICD-10-PCS; 2019-03-05)
PROC: 0DQH4ZZ Repair Cecum, Percutaneous Endoscopic Approach (ICD-10-PCS; 2019-03-07)
PROC: 0DTH4ZZ Resection of Cecum, Percutaneous Endoscopic Approach (ICD-10-PCS; 2019-03-07)
PROC: 0DTJ4ZZ Resection of Appendix, Percutaneous Endoscopic Approach (ICD-10-PCS; 2019-03-07)
PROC: 0W9G40Z Drainage of Peritoneal Cavity with Drainage Device, Percutaneous Endoscopic Approach (ICD-10-PCS; 2019-03-07)
PROC: 0DTF0ZZ Resection of Right Large Intestine, Open Approach (ICD-10-PCS; 2019-03-09)
DX: K35.33 Acute appendicitis with perforation, localized peritonitis, and gangrene, with abscess (principal); K55.21 Angiodysplasia of colon with hemorrhage; G93.41 Metabolic encephalopathy; D62 Acute posthemorrhagic anemia; K92.1 Melena; F05 Delirium due to known physiological condition; F32.9 Major depressive disorder, single episode, unspecified; F41.9 Anxiety disorder, unspecified; I95.1 Orthostatic hypotension; K21.9 Gastro-esophageal reflux disease without esophagitis; M19.91 Primary osteoarthritis, unspecified site; H91.90 Unspecified hearing loss, unspecified ear; R00.0 Tachycardia, unspecified; K57.90 Diverticulosis of intestine, part unspecified, without perforation or abscess without bleeding; K64.8 Other hemorrhoids; E66.9 Obesity, unspecified; K25.9 Gastric ulcer, unspecified as acute or chronic, without hemorrhage or perforation; K44.9 Diaphragmatic hernia without obstruction or gangrene; D72.829 Elevated white blood cell count, unspecified; Z79.899 Other long term (current) drug therapy; Z85.828 Personal history of other malignant neoplasm of skin; Z78.9 Other specified health status; Z68.28 Body mass index [BMI] 28.0-28.9, adult
CPT/HCPCS: 36415; 36416; 71045; 74177; 80048; 80053; 81003; 82140; 82607; 82746; 83540; 83735; 84100; 84425; 84443; 84484; 85014; 85018; 85025; 85027; 85060; 85610; 85730; 86850; 86900; 86901; 87070; 87076; 87077; 87186; 87205; 87324; 87449; 88307; 93005; 94640; 96361; 96365; 96366; C9113; J0131; J1100; J1630; J1642; J1650; J1756; J1885; J1940; J2001; J2060; J2175; J2185; J2270; J2405; J2543; J2550; J2704; J2765; J2916; J3010; J3475; J3480; J3486; J3490; J7050; J7121; P9045; Q5105; Q9966; S0028